=== PATIENT | male | born 1950 | race Caucasian/White ===

== ENCOUNTER 2016-08-08 17:24 | Inpatient (IN) ==
--- NOTE | 2016-08-08 17:46 | Emergency Department Note ---
Disposition Clinical Impression: Community acquired pneumonia, COPD with acute exacerbation, Elevated troponin, NSTEMI (non-ST elevated myocardial infarction) Disposition: Admitted As Inpatient Condition: Fair SOB HPI - General Chief Complaint: ED Shortness of Breath/Dyspnea Stated Complaint: Pneumonia Time Seen by Provider: 08/08/16 17:33 Source: patient Limitations: no limitations Nursing Notes Reviewed: Yes Vital Signs Reviewed: Yes - History of Present Illness Mr. Rahman, a 65yo male, presents from home by POV with CC: difficulty breathing. Present at baseline and worse since this morning. Onset June with cough, diagnosed with bronchitis and treated with IM abx + PO abx + PO steroids...no improvement. Early July routing CT chest (pulmonary cancer screen) and reportedly all clear. Dyspnea continued, cough became productive (yellow), increased inhaler and nebulizer use without improvement. Went to PCP today who read CT report in detail which showed new BL lower lobe consolidation suspicious for pneumonia. He was sent to ER for evaluation and tx. Basline 3L O2 via NC at night. RA during day. PMH: COPD, PVD, diabetes, HTN, BPH, GERD, CAD s/p PCI with stents. Habits: 2-3 packs per day 55 years ([id number] history); quit 2 months ago. - Related Data Home Medications Medication Instructions Recorded Confirmed Albuterol Sulfate [Albuterol 2 puff IH Q4HR PRN 11/13/14 08/08/16 Inhaler] Aspirin 81 mg PO DAILY 11/14/14 08/08/16 Atorvastatin [Lipitor] 40 mg PO HS 11/14/14 08/08/16 Cholecalciferol (Vitamin D3) 1,000 unit PO DAILY 11/14/14 08/08/16 [Vitamin D3] Clopidogrel [Plavix] 75 mg PO DAILY 11/14/14 08/08/16 Tamsulosin [Flomax] 0.4 mg PO DAILY 11/14/14 08/08/16 Ferrous Gluconate 324 mg PO DAILY 12/13/15 08/08/16 Ipratropium [place] 1 spray NS DAILY 12/13/15 08/08/16 Lisinopril [Zestril] 5 mg PO DAILY 12/13/15 08/08/16 Metformin HCl [Metformin HCl ER] 1,000 mg PO QPM 12/13/15 08/08/16 Omeprazole [PriLOSEC] 20 mg PO DAILY 12/13/15 08/08/16 Oxygen [Oxygen] 3 l IH HS 12/13/15 08/08/16 Ranitidine HCl [Heartburn Relief] 150 mg PO BID PRN 12/13/15 08/08/16 Fluticasone Propionate [Flovent 2 puff IH BID 08/08/16 08/08/16 Hfa] Ipratropium/Albuterol Neb [Duoneb] 3 ml IH Q6H PRN 08/08/16 08/08/16 Allergies Allergy/AdvReac Type Severity Reaction Status Date / Time No Known Allergies Allergy Verified 07/08/16 16:02 Past Medical History - Past Medical History Medical history: Reports: COPD, diabetes Surgical history: Reports: angioplasty/stent, sinus surgery, other Psychiatric history: Reports: no psych history - Social History Smoking Status: Former smoker Smokeless Tobacco Status: No Alcohol use: Reports: occasionally Drug use: Reports: none Physical Exam - General Limitations: no limitations General appearance: alert, in no apparent distress Course Course Narrative: Concern is for treated. Cardiac pneumonia which is potentially been progressing for the last 2+ weeks. Chest x-ray indicates emphysema with patchy bibasilar opacities. Lab work has yet to be drawn. Begin empiric antibiotics of ceftriaxone and azithromycin. Patient has been signed out to the night team, Dr. Cottrell and Dr. Raymundo. No leukocytosis. Troponin 1.57. Repeat EKG shows evolving ST depression in precordial leads. Patient is completely asystematic. Patient given aspirin by Dr. Raymundo, spoke with cardiology, and heparin drip started. 19:30 I spoke with the hospitalist, Dr. Hurst, and patient is admitted to her service with cardiology following. Vital Signs Temperature 98.3 F 08/08/16 17:26 Pulse Rate 103 08/08/16 17:26 Respiratory Rate 36 08/08/16 17:26 Blood Pressure 105/69 08/08/16 17:26 O2 Sat by Pulse Oximetry 99 08/08/16 17:26 Temperature 98.3 F 08/08/16 17:26 Pulse Rate 103 08/08/16 17:26 Respiratory Rate 18 08/08/16 18:56 Blood Pressure 105/69 08/08/16 17:26 O2 Sat by Pulse Oximetry 97 08/08/16 18:56 Oxygen Delivery Oxygen Delivery Nasal Cannula Shortness of Breath/Dyspnea - Medical Records Medical records reviewed: Yes I reviewed the patient's medical records. - Lab Data Lab results reviewed: Yes I reviewed the patient's lab results. Result diagrams: 08/08/16 18:36 08/08/16 18:36 Lab Results 08/08/16 08/08/16 08/08/16 Range/Units 18:36 18:36 18:36 WBC 6.9 (4.3-11.1) K/mcL RBC 3.79 L (4.19-5.50) M/mcL Hgb 11.0 L (12.9-16.9) g/dL Hct 33.7 L (37.5-50.1) % MCV 88.9 (83.0-100.0) fL MCH 29.0 (28.0-33.3) pg MCHC 32.6 (31.6-35.5) g/dL RDW 13.2 (11.5-14.5) % Plt Count 350 (140-400) K/mcL MPV 9.4 (9.4-12.4) fL Immature Gran % 0.1 (0-4) % Seg Neutrophils % 57.9 % Lymphocytes % 23.0 % Monocytes % 11.7 % Eosinophils % 6.6 % Basophils % 0.7 % Neutrophils # 4.0 (1.6-8.9) K/mcL Lymphocytes # 1.6 (0.6-4.6) K/mcL Monocytes # 0.8 (0.0-1.3) K/mcL Eosinophils # 0.5 (0.0-0.6) K/mcL Basophils # 0.1 (0.0-0.2) K/mcL Sodium 139 (136-145) mEq/L Potassium 3.9 (3.5-4.5) mEq/L Chloride 106 (98-109) mEq/L Carbon Dioxide 23 (19-29) mEq/L BUN 14 (8-26) mg/dL Creatinine 0.88 (0.72-1.25) mg/dL Est GFR ( Amer) > 60 (> 60) Est GFR (Non-Af Amer) > 60 (> 60) BUN/Creatinine Ratio 16 (6-26) Glucose 101 H (70-99) mg/dL Calculated Osmolality 289 (280-300) Calcium 9.7 (8.6-10.8) mg/dL Troponin I 1.57 H* (0-0.03) ng/mL - Radiology Data Radiology results reviewed: Yes I reviewed the patient's radiology results. Chest X-Ray 08/08/16 17:54 IMPRESSION: 1. Emphysema. 2. Patchy bibasilar airspace opacities, which appear slightly improved compared to the pivot maker radiograph on the previous chest CT dated 07/24/2016. D/ / 08/08/2016 18:24:11 Sravan Hre MD / juan pablo Interpreting Provider: Sravan Her MD - EKG Data EKG attestation: Yes I reviewed and interpreted this EKG. EKG results narrative: EKG data 08/08/16 at 18:41 interpreted as sinus rhythm with rate of 91. Some arrhythmia; suspected respiratory variation. 0.[address] depression with T-wave inversion in lead 2. Compared to previous EKG dated 11/04/2014 showing no acute ischemic changes of comparison. Attestation Statement - Attestation Attestation: I examined this patient and my medical decision-making was reviewed with the SCHOOL PHOTOGRAPHS DETAILER/PA/Advanced Practice Nurse/Resident Physician. I agree with the documented findings, disposition and treatment plan as described except to the extent set forth below. 65 yo male presents with increasing SOB. Pt concerned about pneumonia with previous pneumonia noticed on CT within the past two weeks. Pt reports productive cough but denies fever, chills, n/v/d, palpitations, diaphoresis. Pt reports occasional chest pressure with coughing but denies chest pain in the ED. mild wheezing present in the bilateral vmware architect lung tamez. bilateral infiltrate noted on CXR. Started on Abx for CAP. initial ECG showed [address] depression in V5, V6. Troponin returned elevated and repeat ECG showed increased ST depression and T wave inversion in V4-6. Pt started on Heparin in the ED. Given ASA in the ED. Pt care transferred to Night physician pending further evaluation and treatment.
[2016-08-08] MEDS ORDERED: Ipratropium/Albuterol Neb 3 ML IH ONE (17:54)
[2016-08-08] MEDS ORDERED: methylPREDNISolone 125 MG/2 ML VIAL IVP ONE (17:54)
[2016-08-08 18:51] LABS: Basophils # 0.1 K/mcL (0.0-0.2); Basophils % 0.7 %; Eosinophils # 0.5 K/mcL (0.0-0.6); Eosinophils % 6.6 %; Hematocrit 33.7 % (37.5-50.1); Immature Granulocytes % 0.1 % (0-4); Lymphocytes # 1.6 K/mcL (0.6-4.6); Mean Corpuscular HGB Conc 32.6 g/dL (31.6-35.5); Mean Corpuscular Volume 88.9 fL (83.0-100.0); Mean Platelet Volume 9.4 fL (9.4-12.4); Monocytes # 0.8 K/mcL (0.0-1.3); Monocytes % 11.7 %; Platelet Count 350 K/mcL (140-400); Red Blood Count 3.79 M/mcL (4.19-5.50); Red Cell Distribution Width 13.2 % (11.5-14.5); Segmented Neutrophils % 57.9 %
[2016-08-08] MEDS ORDERED: Azithromycin 500 MG in D5% in Water 250 ML IVPB ONE (19:01)
[2016-08-08 19:07] LABS: BUN/Creatinine Ratio 16 (6-26); Blood Urea Nitrogen 14 mg/dL (8-26); Calcium 9.7 mg/dL (8.6-10.8); Carbon Dioxide 23 mEq/L (19-29); Chloride 106 mEq/L (98-109); Glucose 101 mg/dL (70-99); Osmolality,Calculated 289 (280-300); Potassium 3.9 mEq/L (3.5-4.5); Sodium 139 mEq/L (136-145); eGFR For African Americans > 60 (> 60); eGFR For Non-African Americans > 60 (> 60)
[2016-08-08] MEDS ORDERED: Aspirin 81 MG TAB.CHEW PO ONE (19:18)
[2016-08-08] MEDS ORDERED: *HR* Heparin 5,000 UNIT/ML VIAL IVP ONE (19:37)
[2016-08-08] MEDS ORDERED: *HR* Heparin 5,000 UNIT/ML VIAL IVP PRN ×2 (19:37)
[2016-08-08] MEDS ORDERED: Heparin 25,000 UNIT/500 ML D5W 25,000 UNIT/500 ML MLS IVC SCH (19:45)
[2016-08-08 20:31] LABS: INR 1.2
[2016-08-08 20:34] LABS: Activated Partial Thrombo Time 34.1 Seconds (26.0-36.0)
--- NOTE | 2016-08-08 20:55 | Emergency Department Note ---
Disposition Clinical Impression: Community acquired pneumonia, COPD with acute exacerbation, Elevated troponin Disposition: Still a Patient Condition: Critical General Adult HPI - General Chief complaint: ED Shortness of Breath/Dyspnea Stated complaint: Pneumonia Time Seen by Provider: 08/08/16 17:33 Source: patient Mode of arrival: ambulatory Limitations: no limitations Nursing Notes Reviewed: Yes Vital Signs Reviewed: Yes - History of Present Illness Pain Scale: 6 - Related Data Home Medications Medication Instructions Recorded Confirmed Albuterol Sulfate [Albuterol 2 puff IH Q4HR PRN 11/13/14 08/08/16 Inhaler] Aspirin 81 mg PO DAILY 11/14/14 08/08/16 Atorvastatin [Lipitor] 40 mg PO HS 11/14/14 08/08/16 Cholecalciferol (Vitamin D3) 1,000 unit PO DAILY 11/14/14 08/08/16 [Vitamin D3] Clopidogrel [Plavix] 75 mg PO DAILY 11/14/14 08/08/16 Tamsulosin [Flomax] 0.4 mg PO DAILY 11/14/14 08/08/16 Ferrous Gluconate 324 mg PO DAILY 12/13/15 08/08/16 Ipratropium [place] 1 spray NS DAILY 12/13/15 08/08/16 Lisinopril [Zestril] 5 mg PO DAILY 12/13/15 08/08/16 Metformin HCl [Metformin HCl ER] 1,000 mg PO QPM 12/13/15 08/08/16 Omeprazole [PriLOSEC] 20 mg PO DAILY 12/13/15 08/08/16 Oxygen [Oxygen] 3 l IH HS 12/13/15 08/08/16 Ranitidine HCl [Heartburn Relief] 150 mg PO BID PRN 12/13/15 08/08/16 Fluticasone Propionate [Flovent 2 puff IH BID 08/08/16 08/08/16 Hfa] Ipratropium/Albuterol Neb [Duoneb] 3 ml IH Q6H PRN 08/08/16 08/08/16 Allergies Allergy/AdvReac Type Severity Reaction Status Date / Time No Known Allergies Allergy Verified 07/08/16 16:02 Past Medical History - Past Medical History Medical history: Reports: COPD, diabetes Surgical history: Reports: angioplasty/stent, sinus surgery, other Psychiatric history: Reports: no psych history - Social History Smoking Status: Former smoker Smokeless Tobacco Status: No Alcohol use: Reports: occasionally Drug use: Reports: none Physical Exam - General Limitations: no limitations General appearance: alert, in no apparent distress Course - Reevaluation(s) Reevaluation #1: The patient signout from Dr. Farnsworth. Was notified on my arrival of elevated troponin to 1.57. EKG was repeated and showed ST depression in V3, V4, and V5. With narrow complex tachycardia at 108. No ST elevation. Posterior VT did not show any posterior changes. This was normal sinus rhythm at 94. Case is cussed with baseball coach on-call doctor [place]. Patient adamantly denies any chest pain, pressure, or even shortness of breath at this time. He does note that he has had exertional chest pressure and dyspnea throughout the day and yesterday. He received an aspirin and was placed on a heparin drip. If he develops any chest pain he will get another EKG to be evaluated for ST elevation VT. Patient accepted by the hospitalist. Time: 20:55 Vital Signs Temperature 98.3 F 08/08/16 17:26 Pulse Rate 103 08/08/16 17:26 Respiratory Rate 36 08/08/16 17:26 Blood Pressure 105/69 08/08/16 17:26 O2 Sat by Pulse Oximetry 99 08/08/16 17:26 Temperature 98.3 F 08/08/16 17:26 Pulse Rate 103 08/08/16 17:26 Respiratory Rate 18 08/08/16 18:56 Blood Pressure 105/69 08/08/16 17:26 O2 Sat by Pulse Oximetry 97 08/08/16 18:56 Oxygen Delivery Oxygen Delivery Nasal Cannula Medical Decision Making - Lab Data Result diagrams: 08/08/16 18:36 08/08/16 18:36 Lab Results 08/08/16 08/08/16 08/08/16 Range/Units 18:36 18:36 18:36 WBC 6.9 (4.3-11.1) K/mcL RBC 3.79 L (4.19-5.50) M/mcL Hgb 11.0 L (12.9-16.9) g/dL Hct 33.7 L (37.5-50.1) % MCV 88.9 (83.0-100.0) fL MCH 29.0 (28.0-33.3) pg MCHC 32.6 (31.6-35.5) g/dL RDW 13.2 (11.5-14.5) % Plt Count 350 (140-400) K/mcL MPV 9.4 (9.4-12.4) fL Immature Gran % 0.1 (0-4) % Seg Neutrophils % 57.9 % Lymphocytes % 23.0 % Monocytes % 11.7 % Eosinophils % 6.6 % Basophils % 0.7 % Neutrophils # 4.0 (1.6-8.9) K/mcL Lymphocytes # 1.6 (0.6-4.6) K/mcL Monocytes # 0.8 (0.0-1.3) K/mcL Eosinophils # 0.5 (0.0-0.6) K/mcL Basophils # 0.1 (0.0-0.2) K/mcL Sodium 139 (136-145) mEq/L Potassium 3.9 (3.5-4.5) mEq/L Chloride 106 (98-109) mEq/L Carbon Dioxide 23 (19-29) mEq/L BUN 14 (8-26) mg/dL Creatinine 0.88 (0.72-1.25) mg/dL Est GFR ( Amer) > 60 (> 60) Est GFR (Non-Af Amer) > 60 (> 60) BUN/Creatinine Ratio 16 (6-26) Glucose 101 H (70-99) mg/dL Calculated Osmolality 289 (280-300) Calcium 9.7 (8.6-10.8) mg/dL Troponin I 1.57 H* (0-0.03) ng/mL
[2016-08-08] MEDS ORDERED: Naloxone 0.4 MG/ML INJ IVP PRN (23:16)
[2016-08-08] MEDS ORDERED: Acetaminophen 325 MG TABLET PO PRN (23:16)
[2016-08-08] MEDS ORDERED: Ipratropium/Albuterol Neb 3 ML IH PRN (23:18)
[2016-08-08] MEDS ORDERED: Dextrose Gel 15 GM PO PRN ×2 (23:19)
[2016-08-08] MEDS ORDERED: *HR* Dextrose 50 % in Water (Syg) 50 ML SYRINGE IVP PRN (23:19)
[2016-08-08] MEDS ORDERED: D5% in Water 1,000 ML IVC PRN (23:19)
[2016-08-09] MEDS: Insulin LISPRO 300 UNITS/3 ML VIAL SQ SCH ×4 (00:21→20:54)
--- NOTE | 2016-08-09 01:22 | Internal Med History&Physical ---
Date of Encounter: 08/09/16 Time of Encounter: 21:30 Assessment and Plan (1) NSTEMI (non-ST elevated myocardial infarction) Current visit: Yes Status: Acute Patient presented with chest pain and exertional dyspnea. Noted to have elevated troponin, first one at 1.57, along with EKG changes. Case discussed with cardiology by emergency room physician, recommend anticoagulation with IV heparin drip. Full consult to follow. Continue telemetry monitoring, serial EKGs and troponins. Continue aspirin, Plavix, statin. Check 2-D echocardiogram. Patient will likely receive cardiac catheterization in a.m. Keep NPO for now; high risk for complications; (2) Dyspnea Current visit: Yes Status: Chronic Could be an anginal equivalent. Does not appear to be in acute COPD, patient also quit smoking about 2 months back. Continue telemetry monitoring, cycle troponins. Follow-up cardiology consult. Qualifiers: Dyspnea type: dyspnea on exertion Qualified Code(s): R06.09 - Other forms of dyspnea (3) Essential hypertension Current visit: Yes Status: Chronic Blood pressure noted to be well controlled. Resume home medications. (4) COPD (chronic obstructive pulmonary disease) Current visit: Yes Status: Chronic Continue when necessary bronchodilators and supplemental oxygen, inhaled corticosteroids. Qualifiers: COPD type: unspecified COPD Qualified Code(s): J44.9 - Chronic obstructive pulmonary disease, unspecified (5) CAD (coronary artery disease) Current visit: Yes Status: Chronic Status post 2 stents. Continue aspirin, Plavix and statin. Qualifiers: Coronary Disease-Associated Artery/Lesion type: habematolel artery [place] vs. transplanted heart: habematolel heart Associated angina: without angina Qualified Code(s): I25.10 - Atherosclerotic heart disease of habematolel coronary artery without angina pectoris (6) DM2 (diabetes mellitus, type 2) Current visit: Yes Status: Chronic Accu-Chek blood glucose monitoring with sliding scale insulin as needed. Check hemoglobin A1c. Qualifiers: Diabetes mellitus complication status: with unspecified complications Diabetes mellitus moth exterminator insulin use: without senior care use Qualified Code( s): E11.8 - Type 2 diabetes mellitus with unspecified complications (7) BPH (benign prostatic hyperplasia) Current visit: Yes Status: Chronic Qualifiers: Prostatic enlargement morphology: unspecified morphology Lower urinary tract symptom presence: presence of symptoms unspecified Qualified Code(s): N40.0 - Benign prostatic hyperplasia without lower urinary tract symptoms Internal Medicine - H&P: HPI Chief complaint: Shortness of breath Admitted From: Emergency Dept Plans for Post Hospital Care: Home History of present illness: Mr. Rahman is a 65 year old male with history of COPD, hypertension and diabetes , presents with 2 month history of progressively worsening shortness of breath. Patient is a chronic active smoker and does have some mild shortness of breath and smoker's cough at baseline. He reports worsening of dyspnea, both at rest and on minimal exertion that has been getting worse for at least 2 months. This is associated with crampy left-sided chest pain, worse in certain positions and on exertion. No orthopnea, leg swelling, change in color and amount of sputum production, fever or chills. Patient has history of coronary stent placement about 10 years back. His last stress test and heart catheterization were 5 years ago, at which time they were normal according to the patient. Past Med Surg Social Fam HX - Past Medical History Medical history: COPD, coronary artery disease, diabetes, hyperlipidemia, hypertension Psychiatric history: no psych history - Past Surgical History Surgical History: angioplasty/stent, sinus surgery, other - Social History Smoking Status: Former smoker (Has been smoking at least 2 packs per day for about 55 years, quit 2 months ago) Smokeless Tobacco Status: No Alcohol use: heavy (5-7 beers/week) Drug use: none Occupational status: retired Current living situation: Home, With Family Activity Level: Independent ambulation Recent Out of Country Travel Within the Last 8 Weeks: No Exposure or Possible Exposure to Illness During Travel: No - Family History Mother Hx Family Endocrine Disorder: Yes (diabeties) Internal Medicine - H&P: Meds Albuterol Sulfate [Albuterol Inhaler] 2 puff IH Q4HR PRN 11/13/14 [History] Aspirin 81 mg PO DAILY 11/14/14 [History] Atorvastatin [Lipitor] 40 mg PO HS 11/14/14 [History] Cholecalciferol (Vitamin D3) [Vitamin D3] 1,000 unit PO DAILY 11/14/14 [History] Clopidogrel [Plavix] 75 mg PO DAILY 11/14/14 [History] Tamsulosin [Flomax] 0.4 mg PO DAILY 11/14/14 [History] Ferrous Gluconate 324 mg PO DAILY 12/13/15 [History] Ipratropium [place] 1 spray NS DAILY 12/13/15 [History] Lisinopril [Zestril] 5 mg PO DAILY 12/13/15 [History] Metformin HCl [Metformin HCl ER] 1,000 mg PO QPM 12/13/15 [History] Omeprazole [PriLOSEC] 20 mg PO DAILY 12/13/15 [History] Oxygen [Oxygen] 3 l IH HS 12/13/15 [History] Ranitidine HCl [Heartburn Relief] 150 mg PO BID PRN 12/13/15 [History] Fluticasone Propionate [Flovent Hfa] 2 puff IH BID 08/08/16 [History] Ipratropium/Albuterol Neb [Duoneb] 3 ml IH Q6H PRN 08/08/16 [History] Allergies No Known Allergies Allergy (Verified 07/08/16 16:02) All Systems PM: A 10-system review of systems was performed and is negative for pertinent findings except as documented above in the HPI. - Constitutional Constitutional: no chills, no fever(s), no night sweats - EENT Eyes: no change in vision, no discharge, no pain, no photophobia Ears: no ear discharge, no ear pain, no tinnitus Nose, mouth and throat: no dysphagia, no nasal discharge, no neck pain, no sore throat - Cardiovascular Cardiovascular ROS IM: chest pain, dyspnea, dyspnea on exertion - Respiratory Respiratory: cough, dyspnea on exertion - Gastrointestinal Gastrointestinal: no abdominal pain, no diarrhea, no hematemesis, no hematochezia, no melena, no nausea, no vomiting - Musculoskeletal Musculoskeletal ROS IM: no numbness, no tingling - Integumentary Integumentary IM: no rash, no unusual bruising - Neurological Neurological ROS: no confusion, no convulsions, no focal weakness, no numbness, no tingling, no tremor(s) - Hematologic/Lymphatic Hematologic/Lymphatic: no easy bruising - Constitutional Vitals: Temp Pulse Resp BP Pulse Ox 98.0 F 107 22 103/68 96 08/08/16 22:24 08/08/16 22:24 08/08/16 22:24 08/08/16 22:24 08/08/16 22:24 General appearance: Present: mild distress, A&O X 3, answers questions appropriately - Respiratory Respiratory exam: Present: CTAB (coarse breath sounds B/L). Absent: accessory muscle use, rales, rhonchi, wheezes - Cardiovascular Cardiovascular exam: Present: RRR, +S1, +S2. Absent: diastolic murmur, gallop, rubs, systolic murmur - GI/Abdominal GI/Abdominal exam: Present: normal bowel sounds, soft, no peritoneal signs. Absent: distended, tenderness - Extremities Exam Extremities exam: Present: full ROM, warm, radial pulses palpable and symetrical. Absent: calf tenderness, cyanotic, pedal edema - Neurological Exam Neurological exam: Present: CN II-XII intact, oriented X3, no focal deficits. Absent: pronater drift, facial droop, speech deficit - Skin Skin exam: Present: dry, intact Internal Med - H&P Results - Labs CBC & Chem 7: 08/08/16 18:36 08/08/16 18:36 - EKG Data -: EKG Interpreted by Myself EKG shows normal: sinus rhythm - EKG Data When compared to previous EKG: there are significant changes Interpretation IM: suggestive of ischemia (ST depression in anterior and lateral leads)
[2016-08-09 05:25] LABS: Eosinophils % 0.3 %; Hematocrit 32.4 % (37.5-50.1); Hemoglobin 10.5 g/dL (12.9-16.9); Immature Granulocytes % 0.3 % (0-4); Lymphocytes # 0.4 K/mcL (0.6-4.6); Lymphocytes % 10.1 %; Mean Corpuscular HGB Conc 32.4 g/dL (31.6-35.5); Mean Corpuscular Hemoglobin 29.2 pg (28.0-33.3); Mean Corpuscular Volume 90.3 fL (83.0-100.0); Monocytes # 0.1 K/mcL (0.0-1.3); Monocytes % 1.3 %; Neutrophils # 3.5 K/mcL (1.6-8.9); Platelet Count 311 K/mcL (140-400); Red Blood Count 3.59 M/mcL (4.19-5.50); Red Cell Distribution Width 13.2 % (11.5-14.5)
[2016-08-09 05:32] LABS: BUN/Creatinine Ratio 16 (6-26); Blood Urea Nitrogen 15 mg/dL (8-26); Carbon Dioxide 23 mEq/L (19-29); Chloride 103 mEq/L (98-109); Chol/HDL Ratio 2.4 (0-4.9); Cholesterol 111 mg/dL (< 200); Glucose 208 mg/dL (70-99); HDL Cholesterol 47 mg/dL (40-59); LDL Cholesterol,Calculated 53 mg/dL (0-99); Magnesium 1.7 mg/dL (1.6-2.6); Osmolality,Calculated 287 (280-300); Potassium 4.4 mEq/L (3.5-4.5); Sodium 135 mEq/L (136-145); Triglycerides 54 mg/dL (< 150); eGFR For African Americans > 60 (> 60); eGFR For Non-African Americans > 60 (> 60)
[2016-08-09] MEDS: Cholecalciferol (D-3) 1,000 UNIT TABLET PO SCH (09:21)
[2016-08-09] MEDS: Aspirin 81 MG TAB.CHEW PO SCH (09:22)
--- NOTE | 2016-08-09 09:47 | Cardiology Consult Note ---
Date of Encounter: 08/09/16 Time of Encounter: 08:00 Assessment and Plan (1) NSTEMI (non-ST elevated myocardial infarction) Current Visit: Yes Status: Acute Peak troponin 1.57 with downward trend. ECG changes noted, ischemic vs. LVH. Reports chest pressure and tightness when has difficulty breathing--pain free upon exam now. Hx of occlusive CAD s/p PCI in 2005 or 2006. Recommend ischemic evaluation, LHC with possible PCI; ideally when respiratory status improves. Continue heparin gtt, asa, plavix, and statin. No betablocker due to COPD exacerbation. Check echocardiogram. Keep NPO for now, will discuss with Dr. Becerril. (2) COPD with acute exacerbation Current Visit: Yes Status: Acute Defer mgmt per Primary service. (3) PVD (peripheral vascular disease) Current Visit: Yes Status: Acute Hx of PAD, reports was told he needs LLE intervention in the past. Continue asa, statin, plavix. Discussion w patient/family: The assessment and plan as outlined above was discussed with the patient and/or family members who expressed understanding and agreement. All questions were answered. Thank you for involving us in the care of your patient. Please call with any questions. The patient will be discussed and reviewed with Dr. Becerril; changes to be made accordingly. History of Present Illness Consult date: 08/09/16 Requesting physician: Selma Thomas Consult reason: Elevated trop Chief complaint: Shortness of breath History of present illness: Mr. Rahman is a 65 year old male with PMH significant for HTN, HLD, DMII, CAD s/ p remote PCI (2005 or 2006), COPD (home o2), and PAD who presented to the ED with a 2-month history of worsening shortness of breath. Reportedly he followed up with his PCP several weeks ago who ordered CXR which demonstrated "pneumonia " and patient was unaware of findings. Dyspnea worsened with exertion and improves with rest, nebulizers, and prn oxygen. Initial troponin upon presentation 1.57 now with downward trend. ECG changes noted compared to previous, ischemic changes vs. LVH. Prior testing: TTE 10/05/13: EF 60-65%, mild AR/, normal wall motion, mild LVDD Past Med Surg Social Fam HX - Past Medical History Attestation: Yes The following information was validated with the patient. Source: patient, old records reviewed Medical history: COPD, coronary artery disease, diabetes, hyperlipidemia, hypertension, peripheral artery disease Psychiatric history: no psych history - Past Surgical History Surgical History: angioplasty/stent, sinus surgery - Social History Smoking Status: Former smoker (Has been smoking at least 2 packs per day for about 55 years, quit 2 months ago) Smokeless Tobacco Status: No Alcohol use: heavy (5-7 beers/week) Drug use: none - Family History Mother Hx Family Endocrine Disorder: Yes (diabeties) Medications and Allergies Albuterol Sulfate [Albuterol Inhaler] 2 puff IH Q4HR PRN 11/13/14 [History] Aspirin 81 mg PO DAILY 11/14/14 [History] Atorvastatin [Lipitor] 40 mg PO HS 11/14/14 [History] Cholecalciferol (Vitamin D3) [Vitamin D3] 1,000 unit PO DAILY 11/14/14 [History] Clopidogrel [Plavix] 75 mg PO DAILY 11/14/14 [History] Tamsulosin [Flomax] 0.4 mg PO DAILY 11/14/14 [History] Ferrous Gluconate 324 mg PO DAILY 12/13/15 [History] Ipratropium [place] 1 spray NS DAILY 12/13/15 [History] Lisinopril [Zestril] 5 mg PO DAILY 12/13/15 [History] Metformin HCl [Metformin HCl ER] 1,000 mg PO QPM 12/13/15 [History] Omeprazole [PriLOSEC] 20 mg PO DAILY 12/13/15 [History] Oxygen [Oxygen] 3 l IH HS 12/13/15 [History] Ranitidine HCl [Heartburn Relief] 150 mg PO BID PRN 12/13/15 [History] Fluticasone Propionate [Flovent Hfa] 2 puff IH BID 08/08/16 [History] Ipratropium/Albuterol Neb [Duoneb] 3 ml IH Q6H PRN 08/08/16 [History] Allergies No Known Allergies Allergy (Verified 07/08/16 16:02) All Systems Review: A 10-system review of systems was performed and is negative for pertinent findings except as documented above in the HPI. - Cardiovascular Cardiovascular: as per HPI Physical Examination Vital Signs, Last 4 Hours Temp Pulse Resp BP Pulse Ox 08/09/16 09:35 20 96 08/09/16 07:21 97.7 F 91 20 102/62 96 General: Conversant, No Apparent Distress HEENT: Atraumatic, Normocephaly, Mucus Membranes Moist Cardiac: Reg Rate and Rhythm (tachycardiac) Lungs: Other (Diminished bibasilar rales) Neuro: Alert and responsive Abdomen: Soft Skin: No rashes noted on visualized skin Musculoskeletal: No Chest Wall Tenderness Extremities: No Edema, Other (+1 DP/PT pulses) Results 08/09/16 04:57 08/09/16 04:57 Lab Results 08/09/16 08/09/16 08/09/16 00:48 04:57 04:57 WBC 4.0 L Hgb 10.5 L Hct 32.4 L Plt Count 311 APTT Sodium 135 L Potassium 4.4 Chloride 103 Carbon Dioxide 23 BUN 15 Creatinine 0.92 Glucose 208 H Calcium 9.0 Magnesium 1.7 Troponin I 0.78 H* 08/09/16 08/09/16 04:57 04:57 WBC Hgb Hct Plt Count APTT 48.2 H Sodium Potassium Chloride Carbon Dioxide BUN Creatinine Glucose Calcium Magnesium Troponin I 0.60 H* Active Medications Acetaminophen (Tylenol) 650 mg PO Q6HR PRN PRN Reason: Mild Pain (1-3) Stop: 02/07/17 23:17 Albuterol/Ipratropium (Duoneb) 3 ml IH Q6H PRN; Protocol PRN Reason: Shortness Of Breath/Wheezing Stop: 02/07/17 23:19 Last Admin: 08/09/16 09:34 Dose: 3 ml Aspirin (Aspirin) 81 mg PO DAILY [facility] Stop: 02/08/17 09:01 Last Admin: 08/09/16 09:22 Dose: 81 mg Atorvastatin Calcium (Lipitor) 40 mg PO HS [facility] Stop: 02/08/17 21:01 Clopidogrel Bisulfate (Plavix) 75 mg PO DAILY [facility] Stop: 02/08/17 09:01 Last Admin: 08/09/16 09:21 Dose: 75 mg Dextrose/Water (Dextrose 50% (Syg)) 25 ml IVP AD PRN PRN Reason: Hypoglycemia Stop: 02/07/17 23:20 Ferrous Sulfate (Ferrous Sulfate) 325 mg PO DAILY [facility] Stop: 02/08/17 09:01 Last Admin: 08/09/16 09:22 Dose: 325 mg Glucagon (Glucagen) 1 mg IM ONCE PRN PRN Reason: Hypoglycemia Stop: 02/07/17 23:20 Glucose (Gluctose) 15 gm PO ONCE PRN PRN Reason: Hypoglycemia Stop: 02/07/17 23:20 Glucose (Gluctose) 30 gm PO ONCE PRN PRN Reason: Hypoglycemia Stop: 02/07/17 23:20 Heparin Sodium (Porcine) (Heparin) 4,000 unit IVP Q6HR PRN PRN Reason: SEE COMMENTS Stop: 02/07/17 19:38 Heparin Sodium (Porcine) (Heparin) 2,000 unit IVP Q6H PRN PRN Reason: SEE COMMENTS Stop: 02/07/17 19:38 Last Admin: 08/09/16 05:45 Dose: 2,000 unit Heparin Sodium/Dextrose (Heparin 25,000 Unit/500 Ml D5w) 25,000 unit in 500 mls @ 16.547 mls/hr IVC .Q24H [facility]; 12 UNIT/KG/HR PRN Reason: Protocol Stop: 02/07/17 19:46 Last Titration: 08/09/16 05:34 Dose: 14 unit/kg/hr, 19.305 mls/hr Dextrose (Dextrose 5%) 1,000 mls @ 100 mls/hr IVC .Q10H PRN PRN Reason: HYPOGLYCEMIA Stop: 02/07/17 23:20 Insulin Human Lispro (Humalog) 0 units SQ Q6HR [facility] PRN Reason: Protocol Stop: 02/08/17 00:01 Last Admin: 08/09/16 05:49 Dose: Not Given Lisinopril (Zestril) 5 mg PO DAILY [facility] PRN Reason: Protocol Stop: 02/08/17 09:01 Last Admin: 08/09/16 09:21 Dose: 5 mg Naloxone HCl (Narcan) 0.4 mg IVP Q2MIN PRN PRN Reason: Opioid Reversal Stop: 02/07/17 23:17 Omeprazole (Prilosec) 20 mg PO DAILY@0630 [facility] PRN Reason: Protocol Stop: 02/08/17 06:31 Last Admin: 08/09/16 05:50 Dose: Not Given Pharmacy Profile Note (Patient Taking Own Medication) 0 each IH BID [facility] Stop: 02/08/17 09:01 Tamsulosin HCl (Flomax) 0.4 mg PO DAILY [facility] PRN Reason: Protocol Stop: 02/08/17 09:01 Last Admin: 08/09/16 09:22 Dose: 0.4 mg Vitamin D (Vitamin D) 1,000 unit PO DAILY [facility] Stop: 02/08/17 09:01 Last Admin: 08/09/16 09:21 Dose: 1,000 unit - Imaging and Cardiology Echo: pending, report reviewed Other Results: 12 hour tele: avg [id number] ST. - EKG Interpretation EKG results cardiology: personally reviewed Consult Discharge Plan - Plan Referrals: Saul Grayson MD [Primary Care Provider] - 08/18/16 2:00 pm
[2016-08-09] MEDS: (Fluticasone Propionate [Flovent Hfa] 2 PUFF) IH SCH ×2 (10:25→20:59)
[2016-08-09] MEDS ORDERED: Ipratropium/Albuterol Neb 3 ML IH PRN (11:38)
[2016-08-09] MEDS ORDERED: Ipratropium/Albuterol Neb 3 ML IH SCH (11:45)
[2016-08-09] MEDS ORDERED: Nitroglycerin 1,000 MCG/10 ML VIAL IV ONE (12:32)
[2016-08-09] MEDS ORDERED: 0.9 % Sodium Chloride 1,000 ML ONE ×2 (12:32→13:15)
[2016-08-09] MEDS ORDERED: Heparin 1,000 UNITS/500 mL NS 500 ML ONE (12:32)
[2016-08-09] MEDS ORDERED: *HR* Heparin 10,000 UNIT/10 ML VIAL ONE (12:32)
[2016-08-09] MEDS ORDERED: Verapamil 5 MG/2 ML VIAL ONE (12:32)
[2016-08-09] MEDS ORDERED: *HR* FentaNYL (PF) 100 MCG/2 ML VIAL ONE (13:07)
[2016-08-09] MEDS ORDERED: *HR* Midazolam HCl 2 MG/2 ML VIAL ONE (13:07)
--- NOTE | 2016-08-09 13:33 | Pre-Sedation Evaluation ---
Pre-sedation evaluation - Pre-sedation checklist Date of procedure: 08/09/16 Procedure: heart cath Recent Vitals: Last Vital Signs Temp 97.7 F 08/09/16 07:21 Pulse 91 08/09/16 07:21 Resp 20 08/09/16 12:45 BP 102/62 08/09/16 07:21 Pulse Ox 96 08/09/16 12:45 H&P (including ROS) documented in medical record: Yes Previous reaction to sedatives/anesthetics: No Dietary Status: NPO after Midnight Dentition: dentures removed ASA Classification *see protocol: CLASS II-Mild systemic disease Plan of Care: Pt appropriate candidate for procedure/moderate/conscious sedation , Risks/benefits of procedure/sedation discussed w/ patient/family
--- NOTE | 2016-08-09 14:16 | ECHO - Doppler Report ---
Echocardiogram Name: Sravan Rahman Date of Study: 08/09/2016 Date: 1950 Ht: 71.0 in Medical Record#: [id number] Age: 65 Wt: 153.0 lb Gender: Male BSA: 1.88 Order #: [id number] Location: [facility] Room #: 2NE21 Reading Physician: Jb Moore MD, [facility] [employer] Contact Lens: Marlon Muniz Ordering Physician: Theodora Thomas MD Primary Physician: None Indications: Exertional dyspnea, Elevated troponin Impressions: Moderate-severely dilated left ventricle. Severe LV systolic dysfunction, LVEF 25%. There is global LV hypokinesis with regional variations. Normal right ventricular size and function. Aortic valve not well visualized. Appears moderately calcified. Moderate aortic stenosis. Moderate mitral regurgitation. No evidence of pulmonary hypertension. Left Ventricular Wall Motion: Rest Echo Findings The apex, apical inferior, mid inferior, basal inferior, apical anterior, mid anterior, basal anterior, apical septal, mid inferior septal, basal inferior septal, apical lateral, mid anterior lateral, basal anterior lateral, mid anterior septal, mid inferior lateral, basal anterior septal and basal inferior lateral gonzalez were hypokinetic. Findings: Study Quality * Suboptimal echo windows. ECG Findings * Sinus rhythm with occasional PVCs. Left Ventricle * Moderate-severely dilated left ventricle. * Severe LV systolic dysfunction, LVEF 25%. There is global LV hypokinesis with regional variations. * Normal LV wall thickness. * Indeterminate diastolic function. Right Ventricle * Normal right ventricular size and function. Left Atrium * Normal left atrial size. Right Atrium * Normal right atrial size. Aorta * Aortic root was not well visualized. Pericardium * There is a trivial pericardial effusion present. IVC * Normal IVC dimensions and inspiratory collapse. Aortic Valve * Aortic valve not well visualized. Appears moderately calcified. * Moderate aortic stenosis. * Trace aortic regurgitation. Mitral Valve * Mild mitral annular calcification * No mitral stenosis. * Moderate mitral regurgitation. Tricuspid Valve * Normal tricuspid valve structure. * No tricuspid stenosis. * Trace tricuspid regurgitation. * No evidence of pulmonary hypertension. Pulmonic Valve * Pulmonic valve not well visualized. * No pulmonic stenosis. * No pulmonic regurgitation. History Hypertension Diabetes Hypercholesteremia History of CAD/PTCA Myocardial Infarction Coronary Artery Bypass Graft Valvular Disease 10/05/2013 a Previous Echo was performed. Measurements: BP: 102/ 62 2D Normal Values RVIDd: 2.30 cm IVSd: .60 cm 0.6 - 1.0 cm LVIDd: 6.70 cm 3.7 - 5.6 cm LVPWd: .80 cm 0.6 - 1.1 cm LVIDs: 6.00 cm 1.5 - 3.6 cm LA: 3.60 cm 2.0 - 4.0cm %FS: 10.40 cm >25 % LVOT Diam: 2.00 cm LA volume: 50 Aortic Valve Peak Omar:3.05 m/sec Mean Omar:2.00 m/sec Peak Grad:37.00 mmHg Mean Grad:19.00 mmHg Valve Area:1.15 cm2 Tricuspid Valve TV Regurg Peak Grad: 14.00mmHg TV Regurg Peak Omar: 1.89m/sec Updated by Jb Moore MD, [facility] on 08/09/2016 2:11:21 PM electronically signed on 08/09/2016 2:11:54 PM with status of Final Wall Motion Nam: 1=Normal, 2=Hypokinesis, 3=Akinesis, 4=Dyskinesis, 5=Aneurysmal, 6=Hyperkinetic, X=Not Visualized (Blank)=Missing
--- NOTE | 2016-08-09 15:03 | Internal Med Progress Note ---
<Abdirizak Holland - Last Filed: 08/09/16 14:55> Date of Encounter: 08/09/16 Time of Encounter: 15:03 - Assessment and plan (1) NSTEMI (non-ST elevated myocardial infarction) Current Visit: Yes Status: Acute Assessment and plan: 65y/o male s/p PCI 2012 presents with sob. EKG showed ST depression in V5-V6. Troponin 0.06, 0.78, 1.57 respectively Started on heparin drip, home aspirin, plavix, statin, lisinopril, bblocker held due to sob and COPD. Patient had echo today showing LVEF of 25% with global hypokinesis and moderate aortic stenosis and mitral regurgitation and was taken directly for Cardiac Catheterizaiton (previous echo: LVEF 60-65% with mild arotic stenosis) Denied CP this morning. (2) COPD exacerbation Current Visit: Yes Status: Acute Assessment and plan: r/o patient states he has sob for two months but it has not progressively worsened. He denies productive sputum but did have productive sputum in the past when he was treated for chornic broncitis. sob likely 2nd to cardiac etiology in setting of COPD. Continue duonebs. Furthermore, he does not have clinical signs of penumonia: afebrile, lung exam clear: absent rales, ronchi, absent productive cough. Does report sob. CXR shows improved bibasilar opacities from previous CT chest on July 24 therefore will not start antibiotics or prednisone (3) Tobacco abuse Current Visit: Yes Status: Acute Assessment and plan: Patient has 165 pack year hx Quit smoking 2 months ago. (4) DVT prophylaxis Current Visit: Yes Status: Acute Assessment and plan: on heparin drip (5) Essential hypertension Current Visit: Yes Status: Chronic Assessment and plan: Stable: continue lisinopril. - Subjective Interval history: 65 y/o male admitted for NSTEMI. Patient states he has been SOB for the past two months. SOB is not progressively worsening. He was dx with bronchitis in June and treated with antibiotics and steroids. However, his symptoms did not improve. He aso had CT Chest on July 24 which showed b/l lower lobe opacities considered to be pneumonia. Patient's shortness of breath did not improve with bronchodilators, nebulizer treatments. He uses 3 L of oxygen at night. Patient has a history of coronary artery disease with his last cardiac catheter in 2012 showed moderate three-vessel disease. Patient had echocardiogram in 2014 showing EF of 60-65% with mild stenosis. Patient was found to have ST segment depressions in the precordial leads V5 and V6. He had elevated troponin. Currently patient is on 2 L oxygen saturating 96%. He denies any chest pain. With complaints of shortness of breath. Reports chest pressure with inspiration. Denies productive cough. Patient denies nausea, vomiting, diaphoresis. - Constitutional Vitals: Temp Pulse Resp BP Pulse Ox 97.7 F 91 20 102/62 96 08/09/16 07:21 08/09/16 07:21 08/09/16 12:45 08/09/16 07:21 08/09/16 12:45 General appearance: Present: mild distress, A&O X 3, answers questions appropriately - Eye Eye exam: Present: PERRL, conjuntiva pink, sclera anicteric Pupils: Present: PERRL - Neck Neck exam general surgery: Present: supple, trachea midline. Absent: lymphadenopathy - Respiratory Respiratory exam: Present: CTAB (s/p beathing treatment ) - Cardiovascular Cardiovascular exam: Present: +S1, +S2, tachycardia - GI/Abdominal GI/Abdominal exam: Present: normal bowel sounds, soft, no peritoneal signs. Absent: distended, tenderness - Extremities Exam Extremities exam: Present: warm, radial pulses palpable and symetrical. Absent : calf tenderness, cyanotic, pedal edema - Neurological Exam Neurological exam: Present: CN II-XII intact, oriented X3, no focal deficits. Absent: pronater drift, facial droop, speech deficit - Skin Skin exam: Present: dry, intact Internal Medicine: Result - Labs CBC & Chem 7: 08/09/16 04:57 08/09/16 04:57 Labs: Short CBC 08/09/16 Range/Units 04:57 WBC 4.0 L (4.3-11.1) K/mcL Hgb 10.5 L (12.9-16.9) g/dL Hct 32.4 L (37.5-50.1) % Plt Count 311 (140-400) K/mcL Neutrophils # 3.5 (1.6-8.9) K/mcL BMP 08/09/16 04:57 Sodium 135 L Potassium 4.4 Chloride 103 Carbon Dioxide 23 BUN 15 Creatinine 0.92 Glucose 208 H Calcium 9.0 Cardiac Enzymes 08/09/16 08/09/16 Range/Units 00:48 04:57 Troponin I 0.78 H* 0.60 H* (0-0.03) ng/mL - ABG Interpretation ABG results: PT/INR, D-dimer PT 13.0 Seconds (9.4-12.1) H 08/08/16 20:17 Consult Discharge Plan - Plan Referrals: Saul Grayson MD [Primary Care Provider] - 08/18/16 2:00 pm <Cristopher Hernandez - Last Filed: 08/09/16 18:22> Date of Encounter: 08/09/16 - Assessment and plan (1) NSTEMI (non-ST elevated myocardial infarction) Current Visit: Yes Status: Acute (2) CAD (coronary artery disease) Current Visit: Yes Status: Chronic Qualifiers: Coronary Disease-Associated Artery/Lesion type: [place] artery [place] vs. transplanted heart: [place] heart Associated angina: without angina Qualified Code(s): I25.10 - Atherosclerotic heart disease of [place] coronary artery without angina pectoris (3) DM2 (diabetes mellitus, type 2) Current Visit: Yes Status: Chronic Qualifiers: Diabetes mellitus complication status: with unspecified complications Diabetes mellitus senior care insulin use: without senior care use Qualified Code( s): E11.8 - Type 2 diabetes mellitus with unspecified complications (4) Essential hypertension Current Visit: Yes Status: Chronic (5) COPD (chronic obstructive pulmonary disease) Current Visit: Yes Status: Chronic Qualifiers: COPD type: unspecified COPD Qualified Code(s): J44.9 - Chronic obstructive pulmonary disease, unspecified - Constitutional Vitals: Temp Pulse Resp BP Pulse Ox 97.9 F 97 18 81/56 100 08/09/16 16:37 08/09/16 17:30 08/09/16 16:37 08/09/16 17:35 08/09/16 16:37 Internal Medicine: Result - Labs CBC & Chem 7: 08/09/16 04:57 08/09/16 04:57 Labs: Short CBC 08/09/16 Range/Units 04:57 WBC 4.0 L (4.3-11.1) K/mcL Hgb 10.5 L (12.9-16.9) g/dL Hct 32.4 L (37.5-50.1) % Plt Count 311 (140-400) K/mcL Neutrophils # 3.5 (1.6-8.9) K/mcL BMP 08/09/16 04:57 Sodium 135 L Potassium 4.4 Chloride 103 Carbon Dioxide 23 BUN 15 Creatinine 0.92 Glucose 208 H Calcium 9.0 Cardiac Enzymes 08/09/16 08/09/16 Range/Units 00:48 04:57 Troponin I 0.78 H* 0.60 H* (0-0.03) ng/mL - ABG Interpretation ABG results: PT/INR, D-dimer PT 13.0 Seconds (9.4-12.1) H 08/08/16 20:17 - Attending Attestation I examined this patient and my medical decision-making was reviewed with the Resident Physician on 08/09/16. I agree with the documented findings, disposition and treatment plan as described except to the extent set forth below. Mr Rahman is currently admitted for acute NSTEMI. He is moderate to high risk due to potential for worsening cardiac status. Mr. Rahman was quite dyspneic earlier. He had cath and stent placement and is doing better. Exam Alert. Comfortable Heart reg Lungs clear I/P 1. NSTEMI 2. CAD Further diagnoses and plan as above.
--- NOTE | 2016-08-09 15:18 | Invasive Diagnostic Lab ---
Name: Sravan Rahman Date of Study: 08/09/2016 Date: 1950 Ht: 179.8 cm /70.8 in Medical Record#: [id number] Age: 65 Wt: 69.5 kg / 153.22 lb Account/Order#: [id number] Gender: Male BSA: 1.88 Order #: [id number] Fluoro Dose: 1093 mGy BMI: 21.5 Procedure Physician: Lowell Plasencia MD, FACC Referring MD: Referring MD: Procedures Performed: LEFT HEART CATH PTCA Single Major Vessel Indications: Non-Stemi Impressions: There is severe two vessel coronary artery disease. There is severe LV Dysfunction EF 20% dilated cardiomyopathy Mild aortic stenosis. Recommendations: Optimal medical therapy of patient's disease. Aggressive risk factor modification. History/Risk Factors: Diabetes Hypertension Dyslipidemia Family History of CAD Peripheral Vascular Disease Chronic Lung Disease Procedure Access obtained in the right Femoral artery by percutaneous puncture Patient had successful PTCA in the proximal Circ. Complications: None Contrast: Isovue 117ml Hemodynamics: Pressures Site Systolic/ A Wave Diastolic/ V Wave End Diastolic/ Mean HR AO 73 52 62 94 AO 71 58 64 91 LV 94 13 30 95 LV 89 18 38 93 AO 73 44 59 92 AO 74 54 63 95 AO 76 64 70 110 AO 81 68 74 103 LV Ventriculography Ejection Method: LV Gram Ejection Fraction: 20% Wall Motion: WISDOM Anterobasal Severe Hypokinesis Anterolateral Severe Hypokinesis Apical: Severe Hypokinesis Inferoapical Severe Hypokinesis Inferobasal Severe Hypokinesis Coronary Dominance: right Lesion Findings/Interventions * Left Main Coronary Artery The LMCA is angiographically free of disease. * Left Anterior Descending There is a 30% stenosis in the Proximal LAD. There is a 50% stenosis in the Mid LAD. There is a 50% stenosis in the Distal LAD. * Circumflex * Right Coronary Artery There is a 99% stenosis in the Proximal RCA. There is a 100% stenosis in the Mid RCA. Left to right collaterals. Small caliber vessel. Interventional Device(s) Vessel Segment Type Name Diameter (mm) Length (mm) Proximal Circumflex balloon Emerge Monorail 2 12 Updated by RT Ruddy (R) on 08/09/2016 2:53:36 PM Lowell Plasencia MD, FACC electronically signed on 08/09/2016 3:12:52 PM with status of Final
--- NOTE | 2016-08-09 16:05 | Invasive Diagnostic Lab Proc ---
Name: Sravan Rahman Date of Study: 08/09/2016 Date: 1950 Ht: 70.8in Medical Record#: [id number] Age: 65 Wt: 153.22lb Gender: Male BSA: 1.88 Order #: [id number] BMI: 21.5 Physicians Procedure Physician: Lowell Plasencia MD, [facility] Referring MD: Referring MD: Staff Name Position Time In Xenia Phillips RT (R) Monitor 01:24 PM Viiven Dixon RN Seo Coordinator 01:25 PM Meaghan Wade RT Scrub 01:25 PM Jackie Sena RN Seo Coordinator 02:41 PM Indications Indication Non-Stemi Procedures Performed Procedure L HRT ARTERY/VENTRICLE ANGIO PRQ CARDIAC ANGIOPLAST 1 ART Pre-Procedure Checklist Informed consent is complete signed and on chart. H\\T\\P is on chart. ID band is on and ID verified with patient. Patient NPO for procedure The procedure was described for the patient and questions were answered. ECG is on chart. Plan of Care Patient will tolerate the procedure without complications. Adequate level of comfort will be maintained. Hemodynamics will remain stable Patient will recover from procedure without complications. Respiratory function will be maintained. Cardiac rhythm will remain stable. Patient temperature will be maintained. Patient and/or family have verbalized understanding of the procedure. Patient Education Chief Complaint/Reason for Test: Cardiac Cath Developmental Category: Adult (18-64 years) Developmentally Appropriate for Age: Yes Learning Barriers: None Education Needs: Procedure Education Method: Verbal Information Taught: Cardiac Cath Educational Evaluation: Able to repeat information Intravenous Access Time IV Size Location DC'd Fluid/Drip Rate Units RN 01:15 PM 18g 1 1/4" Patent On Arrival Lt Antecubital 0.9NaCl Vivien Dixon RN 01:15 PM 18g 1 1/4" Patent On Arrival Rt Antecubital Vivien Dixon RN Allergies No Known Allergies Vital Signs Time BP (mmHg) HR (bpm) O2 Sat. RR (bpm) LOC 12:45 PM 102 / 62 91 96 % 16 01:28 PM / % 4 = Oriented but drowsy 01:28 PM / % 4 = Oriented but drowsy 01:44 PM / % 4 = Oriented but drowsy 01:59 PM / % 4 = Oriented but drowsy 02:14 PM / % 4 = Oriented but drowsy 02:29 PM / % 4 = Oriented but drowsy 02:54 PM 83 / 54 91 95 % 16 5 = Fully awake and oriented or at pre-proc level 01:18 PM 111 / 67 98 100 % 4 01:23 PM 87 / 58 98 99 % 01:27 PM 148 / 99 93 96 % 01:29 PM 153 / 74 96 96 % 28 01:35 PM 116 / 89 94 94 % 26 01:39 PM 175 / 156 96 95 % 28 01:43 PM 133 / 109 98 95 % 16 03:00 PM 94 / 63 88 93 % 9 5 = Fully awake and oriented or at pre-proc level 03:15 PM 93 / 61 90 96 % 13 5 = Fully awake and oriented or at pre-proc level 03:30 PM 95 / 65 88 95 % 10 5 = Fully awake and oriented or at pre-proc level 03:45 PM 95 / 65 86 96 % 12 5 = Fully awake and oriented or at pre-proc level 03:50 PM 92 / 62 87 96 % 15 5 = Fully awake and oriented or at pre-proc level 03:55 PM 98 / 63 86 96 % 16 5 = Fully awake and oriented or at pre-proc level 04:00 PM 94 / 51 87 96 % 16 5 = Fully awake and oriented or at pre-proc level Procedural Medications Time Medication Dose Units Method Given By 01:19 PM Versed 2 mg Intravenous Vivien Dixon RN 01:19 PM Fentanyl 50 mcg Intravenous Vivien Dixon RN 01:19 PM Oxygen 4 L/min nasal cannula Vivien Dixon RN 01:43 PM Lidocaine 2% 0.5 ml Subcutaneous Lowell Plasencia MD, FACC 01:48 PM Lidocaine 2% 18 ml Subcutaneous Lowell Plasencia MD, FACC 02:11 PM Heparin 4000 units Intravenous Vivien Dixon RN ASA Classification: CLASS II- Mild systemic disease (i.e. well-controlled diabetes, hypertension, asthma, cigarette smoking) Lion Score Preprocedure Postprocedure Activity 2- Moves 4 extremities sustained head lift Activity 2- Moves 4 extremities sustained head lift Circulation 2- SBP +/= 20 points of pre-anesthetic level Circulation 2- SBP +/= 20 points of pre-anesthetic level Consciousness 2- Awake and alert oriented x 3 Consciousness 2- Awake and alert oriented x 3 O2 Saturation 2- Able to maintain O2 satruation of 92% on room air O2 Saturation 2- Able to maintain O2 satruation of 92% on room air Respiratory 2- Able to deep breathe and cough well Respiratory 2- Able to deep breathe and cough well Total Score 10 Total Score 10 Contrast Agent: Isovue Diagnostic Contrast: 117 ml Total Contrast: 117 ml Fluoro Dose: 1093 mGy Activated Clotting Time Time Seconds to Clot 02:38 PM 199 03:40 PM 169 Procedure Log Time Note Enter By 01:15 PM 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 twilson :18 PM Vitals capture started with the following parameters, Patient=Adult, Interval=5 min, Initial Mbquglhk=792 mmHg, Deflation Rate=5 mmHg, Cuff placed on Right Arm 01:18 PM CathStat :18 PM HR=98 bpm, TIHK=847/67 mmhg, RaJ2=827.0 %, Resp=4 B/min 01:19 PM Time: 13:19 Versed 2 mg Intravenous Given by Vivien Dixon RN twilson : PM Time: 13:19 Oxygen on at 4 L/min per nasal cannula by Vivien Dixon RN twilson : PM Time: 13:19 Fentanyl 50 mcg Intravenous Given by Vivien Dixon RN twilson : PM HR=98 bpm, NIBP=87/58 mmhg, SpO2=99.0 % 01:24 PM Patient charges- Angio tray pack, Navilyst 3mm J, Pulse Oximetry and ACIST tubing and transducer twilson : PM IV Supplies used: J loop Angio Cath. twilson :24 PM Case Delayed no twilson : PM Xenia Phillips RT (R) Position: Monitor Time in: :24 twilson : PM Vivien Dioxn RN Position: Seo Coordinator Time in: :25 twilson : PM Meaghan Wade RT Position: Scrub Time in: :25 twilson : PM NIBP STAT measurement started. : PM Hair removed from procedure site in procedure lab using clippers. Right wrist prepped with Chloraprep by Xenia Phillips RT (R), safety strap applied then patient was draped. Skin intact. twilson : PM Procedure start 13:15 twilson : PM HR=93 bpm, MHYU=351/99 mmhg, SpO2=96.0 % 01:27 PM Pressure channel 1 zero failed. 01:27 PM Pressure channel 1 zero failed. 01:27 PM Pressure channel 1 zeroed. 01:28 PM Time: 13:28 Patient comfortable and pain free: Yes twilson :28 PM Time: 13:28LOC: 4 = Oriented but drowsy twilson 01:29 PM HR=96 bpm, AHHW=880/74 mmhg, SpO2=96.0 %, Resp=28 B/min 01:35 PM HR=94 bpm, RVVH=234/89 mmhg, SpO2=94.0 %, Resp=26 B/min 01:39 PM HR=96 bpm, PAED=744/156 mmhg, SpO2=95.0 %, Resp=28 B/min 01:39 PM NIBP STAT measurement started. 01:41 PM Vitals capture stopped. 01:42 PM NIBP STAT measurement started. 01:43 PM HR=98 bpm, OPVW=991/109 mmhg, SpO2=95.0 %, Resp=16 B/min 01:43 PM Time out performed according to hospital policy twilson 01:43 PM ASA Class CLASS II- Mild systemic disease (i.e. well-controlled diabetes, hypertension, asthma, cigarette smoking) twilson 01:43 PM Time: 13:43 0.5 ml Lidocaine 2% to right radial Subcutaneous Given by Lowell Plasencia MD, [facility] twilson 01:44 PM Time: 13:28 Patient comfortable and pain free: Yes twilson :44 PM Time: 13:28LOC: 4 = Oriented but drowsy twilson 01:47 PM Unable to access right radial artery. twilson 01:47 PM Preparing for groin access. twilson 01:48 PM Time: 13:48 18 ml Lidocaine 2% to right groin Subcutaneous Given by Lowell Plasencia MD, [facility] twilson 01:52 PM Unsuccessful attempt to right groin. Manual pressure applied. twilson 01:55 PM Access obtained by percutaneous puncture. 6Fr 10cm Terumo Glidesheath sheath placed in right Femoral artery. [id number] twilson 01:55 PM 0.035 145cm Glidewire wire [id number] twilson 01:56 PM 5Fr JL3.5 catheter inserted over the wire [id number] twilson 01:57 PM Wire removed, intact. twilson 01:57 PM Recorded Pressure: Ao, HR=94, Condition=Condition 1 (Aorta) Ao 73/52/62 01:57 PM LCA angiography performed in multiple views. twilson 01:58 PM 0.035 145cm Navilyst 3mmJ wire [id number] twilson 01:58 PM Catheter removed twilson 01:58 PM 5Fr FR 4 catheter inserted over the wire DN twilson 01:58 PM Lesion found in Proximal LAD. Pre Stenosis: 30 Pre THOM Flow: twilson 01:58 PM Lesion found in Mid LAD. Pre Stenosis: 50 Pre THOM Flow: twilson 01:59 PM Lesion found in Distal LAD. Pre Stenosis: 50 Pre THOM Flow: twilson 01:59 PM Time: 13:44 Patient comfortable and pain free: Yes twilson 01:59 PM Time: 13:44LOC: 4 = Oriented but drowsy twilson 01:59 PM Mid/Distal Left Anterior Descending Coronary Artery and diagonal branches with 50% stenosis. If graft is supplying this area, 0 % stenosis twilson 01:59 PM Proximal Left Anterior Descending Coronary Artery with 30% stenosis. If graft is supplying this territory, 0 % stenosis. twilson 01:59 PM Lesion found in Proximal Circumflex. Pre Stenosis: 99 Pre THOM Flow: twilson 01:59 PM Circumflex, Obtuse Marginal, Left Posterior Descending, and Left Posterolateral Coronary Arteries with 99 % stenosis. If graft is supplying this area, 0 % stenosis twilson 01:59 PM Wire removed, intact. twilson 01:59 PM Recorded Pressure: Ao, HR=91, Condition=Condition 1 (Aorta) Ao 71/58/64 02:00 PM RCA angiography performed in multiple views. twilson 02:00 PM Wire reinserted and catheter removed. twilson 02:01 PM 5Fr Pigtail catheter inserted over the wire [facility] twilson 02:02 PM Catheter selectively placed in left ventricle twilson 02:02 PM Wire removed, intact. twilson 02:02 PM Bolus angiogram of left Ventricle complete: 10 ml/sec for a total of 30 mls twilson 02:02 PM Recorded Pressure: LV, HR=95, Condition=Condition 1 (Left Ventricle) LV 94/13/30 02:03 PM Recorded Pressure: LV, Ao, HR=92, Condition=Condition 1 (Left Ventricle) LV 89/18/38, (Aorta) Ao 73/44/59 02:05 PM Catheter removed twilson 02:05 PM JR4 reinserted and wire removed twilson 02:07 PM Lesion found in Proximal RCA. Pre Stenosis: 99 Pre THOM Flow: twilson 02:07 PM Lesion found in Mid RCA. Pre Stenosis: 100 Pre THOM Flow: twilson 02:07 PM Right Coronary, Right Posterior Descending Arteries with Right Posterolateral and Acute Marginal branches with 100 % stenosis. If graft is supplying this area, 0 % stenosis twilson 02:09 PM Inflation device was opened. twilson 02:09 PM Catheter removed twilson 02:09 PM 6Fr EBU 3.5 Medtronic guide catheter was used to cannulate the PCI vessel successfully. reused? No twilson 02:10 PM ACT drawn twilson 02:10 PM Wire removed, intact. twilson 02:11 PM Time: 14:11 Heparin 4000 units Intravenous Given by Vivien Dixon RN twilson 02:12 PM .014 PT Graphix 182cm guide wire across target lesion- successful. reused? No twilson 02:13 PM Recorded Pressure: Ao, HR=95, Condition=Condition 1 (Aorta) Ao 74/54/63 02:14 PM Time: 13:59 Patient comfortable and pain free: Yes twilson 02:14 PM Time: 13:59LOC: 4 = Oriented but drowsy twilson 02:14 PM .014 Prowater 180cm guide wire across target lesion- successful. reused? No twilson 02:16 PM 2.0 mm x 12 mm Emerge Monorail balloon across target lesion- successful. reused? No (inserted onto PT Graphix) twilson 02:21 PM External defib pads applied. twilson 02:22 PM Recorded Pressure: Ao, IL=240, Condition=Condition 1 (Aorta) Ao 76/64/70 02:24 PM Balloon inflated @ 6 marisol for 12 seconds twilson 02:25 PM Balloon inflated @ 8 marisol for 10 seconds twilson 02:27 PM Recorded Pressure: Ao, GL=504, Condition=Condition 1 (Aorta) Ao 81/68/74 02:27 PM Balloon inflated @ 8 marisol for 12 seconds twilson 02:29 PM Time: 14:14 Patient comfortable and pain free: Yes twilson 02:29 PM Time: 14:14LOC: 4 = Oriented but drowsy twilson 02:30 PM Both guidewires and balloon removed, intact. twilson 02:30 PM J-wire reinserted. twilson 02:31 PM Guide wire removed intact. twilson 02:33 PM Bolus angiogram of right Femoral complete: 2 ml/sec for a total of 4 mls twilson 02:34 PM Procedure completed at 14:34 twilson 02:34 PM Sign out completed: Radiation Dose 1093.40 mGy Fluoro Time: 10.9 Isovue 370 - 200ml contrast 117 ml given by Lowell Plasencia MD, FACC. Complications: NoneCardiac Rehab Consult needed: NoConfirmed administered medications: Yes twilson 02:34 PM Isovue 370 - 500ml,1 Bottle(s) used. twilson 02:35 PM Sheath left in place to be pulled on floor/holding areaV+Pad twilson 02:38 PM At 14:38 the ACT was 199 seconds. twilson 02:40 PM Family placed in consult room. twilson 02:40 PM Coronary Dominance: right twilson 02:41 PM Post ECG NSR twilson 02:42 PM Post Blood Pressure 133/109 twilson 02:42 PM 14:42 Post Pulses Bilateral DP \\T\\ PT 1+ twilson 02:44 PM Time: 14:29 Patient comfortable and pain free: Yes twilson 02:44 PM Time: 14:29LOC: 4 = Oriented but drowsy twilson 02:44 PM Information taught Cardiac Cath and PTCA twilson 02:44 PM Education needs Procedure, Plan of Care, and Responsibilities of Patient in Care twilson 02:44 PM Learning barriers :None twilson 02:44 PM Education Methods Verbal twilson 02:44 PM Education evaluation Able to repeat information twilson 02:44 PM Site status No bleeding/hematoma - Rt Groin as reported by Meaghan Wade RT at 14:44 twilson 02:44 PM Opsite applied twilson 02:44 PM No 2N beds, patient will remain in holding room until sheath is pulled and can go back to 2NE. twilson 02:49 PM Report given to Ansley VALERIO Pt taken to Holding room Room #2. 14:49 twilson 02:49 PM Patient out of room: 14:49 twilson 02:55 PM received patient to holding room. monitors applied and [facility] 03[facility]40 PM At 15:40 the ACT was 169 seconds. [email or web address] 03:44 PM Arterial sheath pulled using manual compression and V+ Pad for 15 minutes by Meaghan Wade RT [email or web address] 03:55 PM Report given to Christa VALERIO Pt taken to E Room #21. 15:54 lpabar 04:00 PM Patient out of room: 16:00 danelle Complications Complication None Hemodynamics Pressures Site Systolic/A Wave Diastolic/V Wave Mean AO 73 52 62 AO 71 58 64 LV 94 13 30 LV 89 18 38 AO 73 44 59 AO 74 54 63 AO 76 64 70 AO 81 68 74 Post Procedure Information Blood Pressure: 133/109 mmHg Rhythm: NSR Post procedural instructions were given Closure Device Time Device Success/Fail 08/09/2016 3:44:00 PM Manual Compression Successful Site Checks Time Location Status Staff Sheath In? Note 02:44 PM Rt Groin No bleeding/hematoma Meaghan Wade RT Yes 02:53 PM Rt Groin No bleeding/ No Hematoma Ansley Andres RN Yes 03:00 PM Rt Groin No bleeding/ No Hematoma Ansley Andres RN Yes 03:15 PM Rt Groin No bleeding/ No Hematoma Ansley Andres RN Yes 03:30 PM Rt Groin No bleeding/ No Hematoma Ansley Andres RN Yes 03:45 PM Rt Groin No bleeding/ No Hematoma Ansley Andres RN manual pressure held 04:00 PM Rt Groin No bleeding/ No Hematoma Meaghan Wade RT Pulses Time Site Pre-Procedure Post-Procedure Note 08/09/2016 12:46:00 PM Bilateral DP \\T\\ PT 1+ 2:42:00 PM Bilateral DP \\T\\ PT 1+ 08/09/2016 3:00:00 PM Bilateral DP \\T\\ PT 1+ 08/09/2016 3:15:00 PM Bilateral DP \\T\\ PT 1+ 08/09/2016 3:30:00 PM Bilateral DP \\T\\ PT 1+ 08/09/2016 4:00:00 PM Bilateral DP \\T\\ PT 1+ Updated by Ansley Andres RN on 08/09/2016 3:59:14 PM electronically signed on 08/09/2016 3:59:50 PM with status of Final
[2016-08-09] MEDS: Ipratropium/Albuterol Neb 3 ML IH SCH ×2 (16:27→21:20)
--- NOTE | 2016-08-09 17:01 | Electrocardiograph Report ---
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
[2016-08-09] MEDS ORDERED: 0.9 % Sodium Chloride 500 ML IVC ONE (18:00)
[2016-08-09] MEDS ORDERED: Furosemide 20 MG/2 ML VIAL IVP ONE (18:24)
[2016-08-09] MEDS: *HR* Heparin 5,000 UNIT/ML VIAL SQ SCH (21:08)
[2016-08-10] MEDS: Insulin LISPRO 300 UNITS/3 ML VIAL SQ SCH ×3 (02:26→13:18)
[2016-08-10] MEDS: Ipratropium/Albuterol Neb 3 ML IH SCH ×2 (03:54→10:31)
[2016-08-10 05:42] LABS: Basophils % 0.2 %; Eosinophils % 0.3 %; Hematocrit 31.4 % (37.5-50.1); Hemoglobin 10.1 g/dL (12.9-16.9); Immature Granulocytes % 0.4 % (0-4); Lymphocytes # 1.6 K/mcL (0.6-4.6); Lymphocytes % 14.7 %; Mean Corpuscular HGB Conc 32.2 g/dL (31.6-35.5); Mean Corpuscular Hemoglobin 29.4 pg (28.0-33.3); Mean Corpuscular Volume 91.5 fL (83.0-100.0); Mean Platelet Volume 10.1 fL (9.4-12.4); Monocytes % 9.3 %; Neutrophils # 8.3 K/mcL (1.6-8.9); Platelet Count 348 K/mcL (140-400); Red Blood Count 3.43 M/mcL (4.19-5.50); Red Cell Distribution Width 13.4 % (11.5-14.5); Segmented Neutrophils % 75.1 %
[2016-08-10 05:56] LABS: BUN/Creatinine Ratio 20 (6-26); Blood Urea Nitrogen 19 mg/dL (8-26); Carbon Dioxide 24 mEq/L (19-29); Chloride 107 mEq/L (98-109); Potassium 4.2 mEq/L (3.5-4.5); Sodium 139 mEq/L (136-145)
[2016-08-10 05:57] LABS: Calcium 8.4 mg/dL (8.6-10.8); Glucose 109 mg/dL (70-99); Osmolality,Calculated 291 (280-300); eGFR For African Americans > 60 (> 60); eGFR For Non-African Americans > 60 (> 60)
[2016-08-10] MEDS: *HR* Heparin 5,000 UNIT/ML VIAL SQ SCH (06:12)
[2016-08-10] MEDS: Cholecalciferol (D-3) 1,000 UNIT TABLET PO SCH (07:49)
[2016-08-10] MEDS: Aspirin 81 MG TAB.CHEW PO SCH (07:49)
[2016-08-10] MEDS: (Fluticasone Propionate [Flovent Hfa] 2 PUFF) IH SCH (07:51)
[2016-08-10] MEDS ORDERED: Furosemide 20 MG TABLET PO SCH (09:00)
--- NOTE | 2016-08-10 09:55 | Discharge Summary ---
<Abdirizak Holland - Last Filed: 08/10/16 16:50> Date of Encounter: 08/10/16 Time of Encounter: 09:51 - Discharge Diagnosis (1) NSTEMI (non-ST elevated myocardial infarction) Priority: Primary Status: Acute (2) COPD exacerbation Priority: Secondary Status: Ruled-out (3) Tobacco abuse Priority: Secondary Status: Acute (4) DVT prophylaxis Priority: Secondary Status: Acute (5) Essential hypertension Priority: Secondary Status: Chronic - Discharge Medications Prescriptions: Atorvastatin [Lipitor] 40 mg PO HS #30 tablet predniSONE [PredniSONE] 10 mg PO TAPER #20 tablet Tamsulosin [Flomax] 0.4 mg PO DAILY #30 capsule Home Medications: Albuterol Sulfate [Albuterol Inhaler] 2 puff IH Q4HR PRN 11/13/14 [History] Aspirin 81 mg PO DAILY 11/14/14 [History] Atorvastatin [Lipitor] 40 mg PO HS 11/14/14 [History] Cholecalciferol (Vitamin D3) [Vitamin D3] 1,000 unit PO DAILY 11/14/14 [History] Clopidogrel [Plavix] 75 mg PO DAILY 11/14/14 [History] Tamsulosin [Flomax] 0.4 mg PO DAILY 11/14/14 [History] Ferrous Gluconate 324 mg PO DAILY 12/13/15 [History] Ipratropium [place] 1 spray NS DAILY 12/13/15 [History] Metformin HCl [Metformin HCl ER] 1,000 mg PO QPM 12/13/15 [History] Oxygen 3 l IH HS 12/13/15 [History] Ranitidine HCl [Heartburn Relief] 150 mg PO BID PRN 12/13/15 [History] Fluticasone Propionate [Flovent Hfa] 2 puff IH BID 08/08/16 [History] Ipratropium/Albuterol Neb [Duoneb] 3 ml IH Q6H PRN 08/08/16 [History] Atorvastatin [Lipitor] 40 mg PO HS #30 tablet 08/10/16 [Rx] Tamsulosin [Flomax] 0.4 mg PO DAILY #30 capsule 08/10/16 [Rx] predniSONE [PredniSONE] 10 mg PO TAPER #20 tablet 08/10/16 [Rx] Allergies/Adverse Reactions: Allergies No Known Allergies Allergy (Verified 07/08/16 16:02) Procedures/tests Complete & Pending: Procedures Performed prior 72 hours Category Date Time Status CL Cardiac Catheterization [CL] Routine Senior Trial Attorney 08/09/16 12:08 Completed ECG 12 lead ECG [ECG] Routine Y 08/09/16 14:38 Ordered EV echocardiogram Routine Y 08/09/16 01:28 Completed Date of admission: 08/08/16 23:16 Primary care physician: Saul Grayson MD Consults: 08/09/16 10:14 Consult to Cardiac Rehabilitation-Phase1 [CONS] Routine Comment: Reason for Consult: NSTEMI, possible LHC today. 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 Please follow up with cardiology. Since her blood pressure is 90/64. Lisinopril, your blood pressure medication. He will follow up with cardiology and blood pressure medication and resumed if you have improved blood pressure. We will hold giving off metoprolol as you continue to have shortness of breath with exertion as this medication can exacerbate her COPD. Activity restrictions reviewed. No driving for one week. No heavy lifting over ten lbs for one week. No soaking for one week. Keep right groin dry and clean. Reportable symptoms such as hematoma, swelling, redness, or drainage reviewed with patient. - Diet and Activity Activity: increase activity as tolerated Diet: diabetic diet, low fat, low cholesterol, low salt diet Interval History: 65 y/o male presents with SOB for the past two months. SOB is not progressively worsening. He was dx with bronchitis in June and treated with antibiotics and steroids. However, his symptoms did not improve. He also had CT Chest on July 24 which showed b/l lower lobe opacities considered to be pneumonia. Patient's shortness of breath did not improve with bronchodilators, nebulizer treatments. He uses 3 L of oxygen at night. Patient has a history of coronary artery disease with his last cardiac catheter in 2012 showed moderate three-vessel disease. Patient had echocardiogram in 2013 showing EF of 60-65% with mild stenosis. Patient was found to have ST segment depressions in the precordial leads V5 and V6. Troponin was 1.57, 0.78, 0.6 respectively. Echocardiogram showed EF of 25% with global hypokinesis and moderate aortic stenosis and patient was directly taken for cardiac catheterization. Patient underwent PTCA of circumflex artery. He had severe LV dysfunction with EF of 20% and mild aortic stenosis. The LAD had mid and distal 50% stenosis. Right coronary artery had 99% stenosis in the proximal and her percent stenosis in the mid RCA with [id number] collaterals. Patient has improvement of chest heaviness and shortness of breath after cardiac catheterization. Overnight he had no complications. His blood pressure remained stable at 98/60. Due to this hypotension and his lisinopril was discontinued. This morning patient had mild shortness of breath with SPO2 of 92% on room air. He qualified for 3 liters oxygen daily. Patient will be discharged on dual antiplatelet therapy for a minimum of 6 months, activity restrictions, with follow-up appointment in cardiology in a week and follow-up with PCP in a week. He was also discharged with a prednisone Dosepak and requested refills for tamsulosin and atorvastatin. Patient was told to discontinue lisinopril due to hypotension. Furthermore he was not started on a beta michelle secondary to COPD , and hypotension. Patient will follow-up with restrooms or lounges maid outpatient for further treatment of COPD. Hospital course: Mr. Rahman is a 65 year old male - Time Spent with Patient Total time spent providing and/or coordinating discharge services: - Constitutional Vitals: Temp Pulse Resp BP Pulse Ox 98.0 F 87 15 98/70 97 08/10/16 07:22 08/10/16 07:22 08/10/16 07:22 08/10/16 07:22 08/10/16 07:22 General appearance: Present: mild distress, A&O X 3, answers questions appropriately - Head Head exam: Present: atraumatic, normocephalic - Eye Eye exam: Present: PERRL, conjuntiva pink, sclera anicteric - Neck Neck exam general surgery: Present: supple, trachea midline. Absent: lymphadenopathy - Respiratory Respiratory exam: Present: decreased breath sounds, CTAB - Cardiovascular Cardiovascular exam: Present: RRR, +S1, +S2. Absent: diastolic murmur, gallop, rubs, systolic murmur - GI/Abdominal GI/Abdominal exam: Present: normal bowel sounds, soft, no peritoneal signs. Absent: distended, tenderness - Extremities Exam Extremities exam: Present: warm, radial pulses palpable and symetrical. Absent : calf tenderness, cyanotic, pedal edema - Neurological Exam Neurological exam: Present: CN II-XII intact, oriented X3, no focal deficits. Absent: pronater drift, facial droop, speech deficit - Skin Skin exam: Present: dry, intact <Cristopher Hernandez - Last Filed: 08/10/16 18:20> Date of Encounter: 08/10/16 - Discharge Diagnosis (1) NSTEMI (non-ST elevated myocardial infarction) Status: Acute (2) CAD (coronary artery disease) Priority: Secondary Status: Chronic Qualifiers: Coronary Disease-Associated Artery/Lesion type: [place] artery [place] vs. transplanted heart: [place] heart Associated angina: without angina Qualified Code(s): I25.10 - Atherosclerotic heart disease of [place] coronary artery without angina pectoris (3) DM2 (diabetes mellitus, type 2) Priority: Secondary Status: Chronic Qualifiers: Diabetes mellitus complication status: with unspecified complications Diabetes mellitus correction insulin use: without correction use Qualified Code( s): E11.8 - Type 2 diabetes mellitus with unspecified complications (4) Essential hypertension Status: Chronic (5) COPD (chronic obstructive pulmonary disease) Priority: Secondary Status: Chronic Qualifiers: COPD type: unspecified COPD Qualified Code(s): J44.9 - Chronic obstructive pulmonary disease, unspecified (6) PVD (peripheral vascular disease) Priority: Secondary Status: Chronic Procedures/tests Complete & Pending: Procedures Performed prior 72 hours Category Date Time Status CL Cardiac Catheterization [CL] Routine Senior Trial Attorney 08/09/16 12:08 Completed ECG 12 lead ECG [ECG] Routine Y 08/09/16 14:38 Ordered EV echocardiogram Routine Y 08/09/16 01:28 Completed Date of admission: 08/08/16 23:16 Primary care physician: Saul Grayson MD Consults: 08/09/16 10:14 Consult to Cardiac Rehabilitation-Phase1 [CONS] Routine Comment: Reason for Consult: NSTEMI, possible LHC today. Call Completed: No Hospital course: Mr. Rahman is a 65 year old male - Time Spent with Patient Total time spent providing and/or coordinating discharge services: 39min - Constitutional Vitals: Temp Pulse Resp BP Pulse Ox 98.0 F 99 16 108/54 97 08/10/16 12:00 08/10/16 12:00 08/10/16 12:00 08/10/16 12:00 08/10/16 12:00 - Attending Attestation I examined this patient and my medical decision-making was reviewed with the Resident Physician on 08/10/16. I agree with the documented findings, disposition and treatment plan as described except to the extent set forth below. Mr. Rahman had cath and stent placement yesterday. He is afebrile today and has stable vitals. He still has some dyspnea but is baseline. Exam Alert. Comfortable at rest Heart reg No wheeze Plan D/C home today Followup as outpatient.
[2016-08-10] MEDS ORDERED: predniSONE 20 MG TABLET PO ONE (10:10)
--- NOTE | 2016-08-10 11:25 | Cardiology Progress Note ---
Date of Encounter: 08/10/16 Time of Encounter: 11:20 Assessment and Plan (1) NSTEMI (non-ST elevated myocardial infarction) Current Visit: Yes Status: Acute Peak troponin 1.57 with downward trend. ECG changes noted, ischemic vs. LVH. S/p PCI of the left circumflex artery. Importance of DAPT with asa and plavix for minimum of 6 months discussed and he voiced understanding. Kidney function remains stable. Activity restrictions reviewed. No driving for one week. No heavy lifting over ten lbs for one week. No soaking for one week. Keep right groin dry and clean. Reportable symptoms such as hematoma, swelling, redness, or drainage reviewed with patient. F/u appt with [facility] in 1 week will be made by office. (2) Cardiomyopathy Current Visit: Yes Status: Acute TTE- EF 25% with global and segmental systolic dysfunction. S/p angioplasty to pCx artery severe stenosis. Currently euvolemic. On maintenance lasix. CHF education reviewed. Low sodium diet and daily weights. Start low dose bb. Noted to be mildy tachycardiac. No hakeem-inhibitor d/t hypotension. Qualifiers: Cardiomyopathy type: ischemic Qualified Code(s): I25.5 - Ischemic cardiomyopathy (3) CAD (coronary artery disease) Current Visit: Yes Status: Chronic Underwent LHC 08/09/16. S/p proximal left circumflex PTCA. There was 50% stenosis in the mid and distal LAD. There was 99% stenosis in the proximal RCA and 100% stenosis in the mid RCA. Collateral vessels from left to right seen. Aspirin, plavix, statin, and bb. Qualifiers: Coronary Disease-Associated Artery/Lesion type: [place] artery [place] vs. transplanted heart: [place] heart Associated angina: without angina Qualified Code(s): I25.10 - Atherosclerotic heart disease of [place] coronary artery without angina pectoris Discussion w patient/family: The assessment and plan as outlined above was discussed with the patient and/or family members who expressed understanding and agreement. All questions were answered. Thank you for involving us in the care of your patient. Please call with any questions. Subjective Principal diagnosis: CHF, CAD Interval history: Denies chest pain overnight. Mild tenderness at right groin access site. Ambulated in room without difficulty. Objective Vital Signs, Last 4 Hours Temp Pulse Resp BP Pulse Ox 08/10/16 07:22 98.0 F 87 15 98/70 97 General: Conversant, No Apparent Distress HEENT: Atraumatic, Normocephaly, Mucus Membranes Moist Neck: No JVD, Normal carotid pulses Cardiac: Reg Rate and Rhythm, Normal S1 and S2, No Murmur, Other (ST with PVC) Lungs: Normal Breath Sounds, No Wheeze, Rales, Rhonchi Neuro: Alert and responsive, No focal deficits noted Abdomen: Soft, Non-Tender Skin: No rashes noted on visualized skin Musculoskeletal: No Chest Wall Tenderness Extremities: No Clubbing, No Cyanosis, No Edema, Normal Pulses, Other (Right groin with small knot at access site area. No significant hematoma, redness or drainage. ) Results 08/10/16 04:03 08/10/16 04:03 Lab Results 08/10/16 08/10/16 04:03 04:03 WBC 11.0 D Hgb 10.1 L Hct 31.4 L Plt Count 348 Sodium 139 Potassium 4.2 Chloride 107 Carbon Dioxide 24 BUN 19 Creatinine 0.93 Glucose 109 H Calcium 8.4 L Magnesium 2.0 - Imaging and Cardiology Echo: report reviewed Cardiac cath: report reviewed - EKG Interpretation EKG results cardiology: personally reviewed (ST- sinus arryhythmia with PVC.) Consult Discharge Plan - Plan Instructions: Prednisone (By mouth), Myocardial Infarction (DC), Diabetes Mellitus Type 2 in Adults (DC), Chronic Obstructive Pulmonary Disease (DC), Chronic Hypertension (DC), Pneumonia (DC), Cigarette Smoking and Your Health, 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 Please follow up with cardiology. Since her blood pressure is 90/64. Lisinopril, your blood pressure medication. He will follow up with cardiology and blood pressure medication and resumed if you have improved blood pressure. We will hold giving off metoprolol as you continue to have shortness of breath with exertion as this medication can exacerbate her COPD. Referrals: Saul Grayson MD [Primary Care Provider] - 08/18/16 2:00 pm Juan Ramon Becerril DO [Partnered Physician] - Prescriptions: predniSONE [PredniSONE] 10 mg PO TAPER #20 tablet
[2016-08-10] MEDS ORDERED: Metoprolol XL (24 HR) Succ 25 MG TAB.ER.24H PO SCH (11:45)
[2016-08-10 12:09] VITALS: BP 108/54
--- NOTE | 2016-08-10 13:34 | Electrocardiograph Report ---
[place] [id number] Test Date: 2016-08-08 Pat Name: Sravan Rahman Department: 104 Room: 2NE21 Gender: Balance Truer: CHENCHO : 1950 Requested By: Saleem Raymundo Order Number: [id number] Reading MD: Jb Moore MD Measurements Intervals [place] Rate: 108 P: ME: 190 QRS: 51 QRSD: 96 T: -68 QT: 342 QTc: 405 Interpretive Statements SINUS TACHYCARDIA ST DEVIATION AND MODERATE T-WAVE ABNORMALITY, CONSIDER INFEROLATERAL ISCHEMIA Electronically Signed On 08-10-2016 13:32:31 EDT by Jb Moore MD
== END 2016-08-10 15:15 | disposition home or self-care (01) | DRG 251 ==
LOC: 2NENU 17:24 → EMEROO 17:24 → 2NENU 21:59
PROVIDERS: ADMIT Internal Medicine; ATTEND Internal Medicine

== ENCOUNTER 2016-08-17 12:48 | Inpatient (IN) ==
[2016-08-17] MEDS ORDERED: Ipratropium/Albuterol Neb 3 ML IH ONE (12:49)
[2016-08-17] MEDS ORDERED: methylPREDNISolone 125 MG/2 ML VIAL IVP ONE (12:49)
[2016-08-17 13:20] LABS: INR 1.1; Prothrombin Time 11.9 Seconds (9.4-12.1)
[2016-08-17 13:23] LABS: Activated Partial Thrombo Time 26.9 Seconds (26.0-36.0)
[2016-08-17 13:25] LABS: ABG Base Excess 2.9 mEq/L (-2.0 to 3.0); ABG HCO3 28.5 mEQ/L (21-27); ABG Oxygen Saturation 100 % (95-98); ABG PCO2 47 mmHg (35-45); ABG PH 7.39 pH Units (7.32-7.45); ABG PO2 227 mmHg (85-104); ABG TCO2 29.9 mEq/L (20-26); Blood Gas FiO2 50 %
[2016-08-17 13:27] LABS: BUN/Creatinine Ratio 20 (6-26); Blood Urea Nitrogen 18 mg/dL (8-26); Calcium 8.7 mg/dL (8.6-10.8); Carbon Dioxide 23 mEq/L (19-29); Chloride 102 mEq/L (98-109); Glucose 218 mg/dL (70-99); Osmolality,Calculated 291 (280-300); Potassium 4.7 mEq/L (3.5-4.5); Sodium 136 mEq/L (136-145); eGFR For African Americans > 60 (> 60); eGFR For Non-African Americans > 60 (> 60)
--- NOTE | 2016-08-17 13:36 | Emergency Department Note ---
Disposition Clinical Impression: Acute exacerbation of chronic obstructive airways disease Acute and chronic respiratory failure Qualifiers: Respiratory failure complication: hypoxia Qualified Code(s): J96.21 - Acute and chronic respiratory failure with hypoxia Disposition: Admitted As Inpatient Referrals: Saul Grayson MD [Primary Care Provider] - SOB HPI - General Chief Complaint: ED Shortness of Breath/Dyspnea Stated Complaint: BRANDY Time Seen by Provider: 08/17/16 12:49 Source: patient, EMS Limitations: no limitations Nursing Notes Reviewed: Yes Vital Signs Reviewed: Yes - History of Present Illness Pt Subjective Complaint: shortness of breath Onset (ago): week(s) (1) Context: recent illness Severity: severe Consistency/Duration: constant, gradually worsening Improves with: oxygen, rest, bronchodilators Worsens with: exertion Known history of: COPD Treatment prior to arrival: oxygen, bronchodilator, NIPPV - Related Data Home Medications Medication Instructions Recorded Confirmed Albuterol Sulfate [Albuterol 2 puff IH Q4HR PRN 11/13/14 08/08/16 Inhaler] Aspirin 81 mg PO DAILY 11/14/14 08/08/16 Atorvastatin [Lipitor] 40 mg PO HS 11/14/14 08/08/16 Cholecalciferol (Vitamin D3) 1,000 unit PO DAILY 11/14/14 08/08/16 [Vitamin D3] Clopidogrel [Plavix] 75 mg PO DAILY 11/14/14 08/08/16 Tamsulosin [Flomax] 0.4 mg PO DAILY 11/14/14 08/08/16 Ferrous Gluconate 324 mg PO DAILY 12/13/15 08/08/16 Ipratropium [place] 1 spray NS DAILY 12/13/15 08/08/16 Metformin HCl [Metformin HCl ER] 1,000 mg PO QPM 12/13/15 08/08/16 Oxygen 3 l IH HS 12/13/15 08/08/16 Ranitidine HCl [Heartburn Relief] 150 mg PO BID PRN 12/13/15 08/08/16 Fluticasone Propionate [Flovent 2 puff IH BID 08/08/16 08/08/16 Hfa] Ipratropium/Albuterol Neb [Duoneb] 3 ml IH Q6H PRN 08/08/16 08/08/16 Previous Rx's Medication Instructions Recorded Atorvastatin [Lipitor] 40 mg PO HS #30 tablet 08/10/16 Tamsulosin [Flomax] 0.4 mg PO DAILY #30 capsule 08/10/16 predniSONE [PredniSONE] 10 mg PO TAPER #20 tablet 08/10/16 Allergies Allergy/AdvReac Type Severity Reaction Status Date / Time No Known Allergies Allergy Verified 07/08/16 16:02 All systems ED: reviewed and negative except as stated. Constitutional: Denies: fever, chills Respiratory: Reports: dyspnea, wheezes Gastrointestinal: Denies: nausea, vomiting Past Medical History - Past Medical History Source: patient, old records reviewed, obtained from family, nursing notes reviewed Medical history: Reports: COPD, coronary artery disease, diabetes, hyperlipidemia, hypertension, peripheral artery disease Surgical history: Reports: angioplasty/stent, sinus surgery Psychiatric history: Reports: no psych history - Social History Smoking Status: Former smoker Smokeless Tobacco Status: No Alcohol use: Reports: heavy Drug use: Reports: none Physical Exam - General Limitations: no limitations General appearance: alert, in distress (Vision tachypneic using accessory muscles on BiPAP) - Head Head exam: atraumatic, normocephalic, normal inspection - Eye Eye exam: Present: normal appearance, PERRL, EOMI - ENT ENT exam: normal exam, normal oropharynx, mucous membranes moist - Neck Neck exam: Present: normal inspection, full ROM, trachea midline - Chest Chest inspection: Present: symmetric chest wall rise - Respiratory Respiratory exam: Present: respiratory distress, accessory muscle use, prolonged expiratory phase - Cardiovascular Cardiovascular exam: Present: tachycardia, normal heart sounds - Abdominal Exam Abdominal exam: Present: soft, Non-Tender. Absent: tenderness, distention, guarding, rebound, rigidity - Back Exam Back exam: Present: normal inspection, full ROM. Absent: tenderness - Neurological Exam Neurological exam: Present: alert, oriented X3 - Psychiatric Psychiatric exam: Present: normal affect, normal mood - Skin Skin exam: Present: warm Course - Reevaluation(s) Reevaluation #1: He is feeling much better than he did prior to arrival he wants to try nasal cannula. The BiPAP. Time: 14:18 Vital Signs Temperature 97.1 F L 08/17/16 12:50 Pulse Rate 116 08/17/16 12:50 Respiratory Rate 23 08/17/16 12:50 Blood Pressure 134/87 08/17/16 12:50 O2 Sat by Pulse Oximetry 99 08/17/16 12:50 Temperature 97.1 F L 08/17/16 12:50 Pulse Rate 111 08/17/16 14:36 Respiratory Rate 32 08/17/16 14:36 Blood Pressure 115/71 08/17/16 14:36 O2 Sat by Pulse Oximetry 96 08/17/16 14:36 Oxygen Delivery Oxygen Delivery Bipap Shortness of Breath/Dyspnea - Differential Diagnosis Likely: acute exacerbation of chronic obstructive airways disease, congestive heart failure, pneumonia, asthma with exacerbation, pulmonary embolism, pneumothorax, arrhythmia - Medical Records Medical records reviewed: Yes I reviewed the patient's medical records. - Lab Data Lab results reviewed: Yes I reviewed the patient's lab results. Result diagrams: 08/17/16 13:31 08/17/16 12:50 Lab Results 08/17/16 08/17/16 08/17/16 Range/Units 12:50 12:50 12:50 WBC (4.3-11.1) K/mcL RBC (4.19-5.50) M/mcL Hgb (12.9-16.9) g/dL Hct (37.5-50.1) % MCV (83.0-100.0) fL MCH (28.0-33.3) pg MCHC (31.6-35.5) g/dL RDW (11.5-14.5) % Plt Count (140-400) K/mcL MPV (9.4-12.4) fL Immature Gran % (0-4) % Seg Neutrophils % % Lymphocytes % % Monocytes % % Eosinophils % % Basophils % % Neutrophils # (1.6-8.9) K/mcL Lymphocytes # (0.6-4.6) K/mcL Monocytes # (0.0-1.3) K/mcL Eosinophils # (0.0-0.6) K/mcL Basophils # (0.0-0.2) K/mcL PT 11.9 (9.4-12.1) Seconds INR 1.1 APTT 26.9 (26.0-36.0) Seconds ABG pH (7.32-7.45) pH Units ABG pCO2 (35-45) mmHg ABG pO2 (85-104) mmHg ABG HCO3 (21-27) mEQ/L ABG Total CO2 (20-26) mEq/L ABG O2 Saturation (95-98) % ABG Base Excess (-2.0 to 3.0) mEq/L Blood Gas Modality Inspired O2 % Sodium 136 (136-145) mEq/L Potassium 4.7 H (3.5-4.5) mEq/L Chloride 102 (98-109) mEq/L Carbon Dioxide 23 (19-29) mEq/L BUN 18 (8-26) mg/dL Creatinine 0.90 (0.72-1.25) mg/dL Est GFR ( Amer) > 60 (> 60) Est GFR (Non-Af Amer) > 60 (> 60) BUN/Creatinine Ratio 20 (6-26) Glucose 218 H (70-99) mg/dL Calculated Osmolality 291 (280-300) Lactic Acid (0.5-2.2) mmol/L Calcium 8.7 (8.6-10.8) mg/dL Troponin I 0.21 H* (0-0.03) ng/mL B-Natriuretic Peptide (0-100) pg/mL 08/17/16 08/17/16 08/17/16 Range/Units 13:10 13:31 13:31 WBC 14.9 H (4.3-11.1) K/mcL RBC 3.57 L (4.19-5.50) M/mcL Hgb 10.1 L (12.9-16.9) g/dL Hct 32.6 L (37.5-50.1) % MCV 91.3 (83.0-100.0) fL MCH 28.3 (28.0-33.3) pg MCHC 31.0 L (31.6-35.5) g/dL RDW 13.1 (11.5-14.5) % Plt Count 401 H (140-400) K/mcL MPV 9.3 L (9.4-12.4) fL Immature Gran % 0.9 (0-4) % Seg Neutrophils % 88.6 % Lymphocytes % 4.4 % Monocytes % 5.3 % Eosinophils % 0.7 % Basophils % 0.1 % Neutrophils # 13.2 H (1.6-8.9) K/mcL Lymphocytes # 0.7 (0.6-4.6) K/mcL Monocytes # 0.8 (0.0-1.3) K/mcL Eosinophils # 0.1 (0.0-0.6) K/mcL Basophils # 0.0 (0.0-0.2) K/mcL PT (9.4-12.1) Seconds INR APTT (26.0-36.0) Seconds ABG pH 7.39 (7.32-7.45) pH Units ABG pCO2 47 H (35-45) mmHg ABG pO2 227 H (85-104) mmHg ABG HCO3 28.5 H (21-27) mEQ/L ABG Total CO2 29.9 H (20-26) mEq/L ABG O2 Saturation 100 H (95-98) % ABG Base Excess 2.9 (-2.0 to 3.0) mEq/L Blood Gas Modality bipap Inspired O2 50 % Sodium (136-145) mEq/L Potassium (3.5-4.5) mEq/L Chloride (98-109) mEq/L Carbon Dioxide (19-29) mEq/L BUN (8-26) mg/dL Creatinine (0.72-1.25) mg/dL Est GFR ( Amer) (> 60) Est GFR (Non-Af Amer) (> 60) BUN/Creatinine Ratio (6-26) Glucose (70-99) mg/dL Calculated Osmolality (280-300) Lactic Acid 1.6 (0.5-2.2) mmol/L Calcium (8.6-10.8) mg/dL Troponin I (0-0.03) ng/mL B-Natriuretic Peptide (0-100) pg/mL 08/17/16 Range/Units 13:31 WBC (4.3-11.1) K/mcL RBC (4.19-5.50) M/mcL Hgb (12.9-16.9) g/dL Hct (37.5-50.1) % MCV (83.0-100.0) fL MCH (28.0-33.3) pg MCHC (31.6-35.5) g/dL RDW (11.5-14.5) % Plt Count (140-400) K/mcL MPV (9.4-12.4) fL Immature Gran % (0-4) % Seg Neutrophils % % Lymphocytes % % Monocytes % % Eosinophils % % Basophils % % Neutrophils # (1.6-8.9) K/mcL Lymphocytes # (0.6-4.6) K/mcL Monocytes # (0.0-1.3) K/mcL Eosinophils # (0.0-0.6) K/mcL Basophils # (0.0-0.2) K/mcL PT (9.4-12.1) Seconds INR APTT (26.0-36.0) Seconds ABG pH (7.32-7.45) pH Units ABG pCO2 (35-45) mmHg ABG pO2 (85-104) mmHg ABG HCO3 (21-27) mEQ/L ABG Total CO2 (20-26) mEq/L ABG O2 Saturation (95-98) % ABG Base Excess (-2.0 to 3.0) mEq/L Blood Gas Modality Inspired O2 % Sodium (136-145) mEq/L Potassium (3.5-4.5) mEq/L Chloride (98-109) mEq/L Carbon Dioxide (19-29) mEq/L BUN (8-26) mg/dL Creatinine (0.72-1.25) mg/dL Est GFR ( Amer) (> 60) Est GFR (Non-Af Amer) (> 60) BUN/Creatinine Ratio (6-26) Glucose (70-99) mg/dL Calculated Osmolality (280-300) Lactic Acid (0.5-2.2) mmol/L Calcium (8.6-10.8) mg/dL Troponin I (0-0.03) ng/mL B-Natriuretic Peptide 1707 H (0-100) pg/mL - Radiology Data Radiology results reviewed: Yes I reviewed the patient's radiology results. - EKG Data EKG attestation: Yes I reviewed and interpreted this EKG. Critical Care Time Critical Care Time: Yes Total Critical Care Time: 35 Attestation: Critical care performed: Time is exclusive of separately billable procedures. Time includes: direct patient care, patient reassessment, coordination of patient care, interpretation of data (laboratory data, radiology data, and respiratory data), review of patient's medical records, medical consultation and documentation of patient care. Procedures included in critical care time: Procedures excluded from critical care time:
[2016-08-17 13:41] LABS: Basophils % 0.1 %; Eosinophils # 0.1 K/mcL (0.0-0.6); Eosinophils % 0.7 %; Hematocrit 32.6 % (37.5-50.1); Hemoglobin 10.1 g/dL (12.9-16.9); Immature Granulocytes % 0.9 % (0-4); Lymphocytes # 0.7 K/mcL (0.6-4.6); Lymphocytes % 4.4 %; Mean Corpuscular Hemoglobin 28.3 pg (28.0-33.3); Mean Corpuscular Volume 91.3 fL (83.0-100.0); Mean Platelet Volume 9.3 fL (9.4-12.4); Monocytes # 0.8 K/mcL (0.0-1.3); Monocytes % 5.3 %; Neutrophils # 13.2 K/mcL (1.6-8.9); Platelet Count 401 K/mcL (140-400); Red Blood Count 3.57 M/mcL (4.19-5.50); Red Cell Distribution Width 13.1 % (11.5-14.5); Segmented Neutrophils % 88.6 %
[2016-08-17] MEDS ORDERED: Aspirin 81 MG TAB.CHEW PO ONE (14:18)
[2016-08-17] MEDS ORDERED: Furosemide 40 MG/4 ML VIAL IVP ONE (14:30)
[2016-08-17] MEDS ORDERED: Famotidine 20 MG TABLET PO PRN (15:29)
[2016-08-17] MEDS ORDERED: Naloxone 0.4 MG/ML INJ IVP PRN (15:36)
[2016-08-17] MEDS ORDERED: Ondansetron ODT 4 MG TAB.RAPDIS SL PRN (15:36)
[2016-08-17] MEDS ORDERED: ALPRAZolam 0.5 MG TABLET PO PRN (16:56)
--- NOTE | 2016-08-17 17:16 | Internal Med History&Physical ---
<Pastrana,Traci J - Last Filed: 08/17/16 17:40> Date of Encounter: 08/17/16 Time of Encounter: 14:00 Assessment and Plan (1) Acute and chronic respiratory failure Current visit: Yes Status: Acute Presented with worsening shortness of breath and was placed on BiPAP in the ED. 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 Respiratory status stable and improved in the ED. Continue treating underlying causes. Wean BiPAP as able Qualifiers: Respiratory failure complication: hypoxia Qualified Code(s): J96.21 - Acute and chronic respiratory failure with hypoxia (2) Acute systolic (congestive) heart failure Current visit: Yes Status: Acute EF 20% per 08/09/2016 left heart catheter. Now with worsening shortness of breath for the last week. BNP 1707, chest x-ray with pulmonary congestion area and does not appear overtly overloaded. Will add low-dose IV Lasix as this may be contributing to worsening respiratory status. May need Lasix at discharge. Monitor I&Os, daily weights. Consult Cardiology if needed. (3) Acute exacerbation of chronic obstructive airways disease Current visit: Yes Status: Acute Presented with worsening shortness of breath for 1 week prior to admission. Wears O2 at at bedtime only now requiring it [id number]. Dyspneic and placed on BiPAP. With scant scattered wheezing on exam. Breathing improved with IV steroids and breathing treatments and BiPAP in the ED. WBC 14 K (has been on steroids), afebrile and no change in sputum production. Hold on ATB at this time. Continue IV steroids, nebs wean BiPAP as able (4) CAD (coronary artery disease) Current visit: No Status: Chronic Per history. 08/09/2016 left heart catheter with severe 2 vessel disease. Not amenable to stenting. Continue medical management. Troponin 0.21 however trending down, suspect this is secondary to left heart catheter. Patient does not complain of chest pain no acute ST changes on EKG. Continue to trend troponin consult cardiology if troponin uptrending or having chest pain. Qualifiers: Coronary Disease-Associated Artery/Lesion type: [place] artery [place] vs. transplanted heart: [place] heart Associated angina: without angina Qualified Code(s): I25.10 - Atherosclerotic heart disease of [place] coronary artery without angina pectoris (5) DM2 (diabetes mellitus, type 2) Current visit: No Status: Chronic Control unknown. Holding home metformin. Start SSI, monitor blood sugar and titrate PRN (been on steroids at home and now on IV steroids with acute COPD exacerbation). Hgb A1c pending Qualifiers: Diabetes mellitus complication status: without complication Diabetes mellitus intermission coordinator insulin use: without intermission coordinator use Qualified Code(s): E11.9 - Type 2 diabetes mellitus without complications (6) BPH (benign prostatic hyperplasia) Current visit: No Status: Chronic Per history, continue home medication regimen. Qualifiers: Prostatic enlargement morphology: unspecified morphology Lower urinary tract symptom presence: symptoms absent Qualified Code(s): N40.0 - Benign prostatic hyperplasia without lower urinary tract symptoms (7) DVT prophylaxis Current visit: No Status: Acute Internal Medicine - H&P: HPI Chief complaint: shortness of breath Admitted From: Home Plans for Post Hospital Care: Home History of present illness: Mr. Rahman is a 65 year old male CAD diabetes and BPH who presented to [facility] on 08/17/2016 with complaints of worsening shortness of breath. He was found to be an acute COPD exacerbation and was placed on BiPAP in the ED. He was admitted for further workup and treatment. Information obtained from chart review and patient report, patient was recently discharged one week ago and says he has been progressively short of breath since that time. Typically wears oxygen at night only but has been wearing a round-the- clock this past week shortness of breath worse with ambulation better with rest as dry non-productive cough at times. No CP, no ABD pain, no N/V/D Past Med Surg Social Fam HX - Past Medical History Medical history: COPD, coronary artery disease, diabetes, hyperlipidemia, hypertension, peripheral artery disease Psychiatric history: no psych history - Past Surgical History Surgical History: angioplasty/stent, sinus surgery - Social History Smoking Status: Former smoker Smokeless Tobacco Status: No Alcohol use: heavy Drug use: none - Family History Mother Hx Family Endocrine Disorder: Yes (diabeties) - Additional Family History Additional family history: reviewed and non-contributory Internal Medicine - H&P: Meds Albuterol Sulfate [Albuterol Inhaler] 2 puff IH Q4HR PRN 11/13/14 [History] Aspirin 81 mg PO DAILY 11/14/14 [History] Cholecalciferol (Vitamin D3) [Vitamin D3] 1,000 unit PO DAILY 11/14/14 [History] Clopidogrel [Plavix] 75 mg PO DAILY 11/14/14 [History] Ferrous Gluconate 324 mg PO DAILY 12/13/15 [History] Ipratropium [place] 1 spray NS DAILY 12/13/15 [History] Metformin HCl [Metformin HCl ER] 1,000 mg PO QPM 12/13/15 [History] Oxygen 3 l IH HS 12/13/15 [History] Ranitidine HCl [Heartburn Relief] 150 mg PO BID PRN 12/13/15 [History] Fluticasone Propionate [Flovent Hfa] 2 puff IH BID 08/08/16 [History] Ipratropium/Albuterol Neb [Duoneb] 3 ml IH Q6H PRN 08/08/16 [History] Atorvastatin [Lipitor] 40 mg PO HS #30 tablet 08/10/16 [Rx] Tamsulosin [Flomax] 0.4 mg PO DAILY #30 capsule 08/10/16 [Rx] predniSONE [PredniSONE] 10 mg PO TAPER #20 tablet 08/10/16 [Rx] Allergies No Known Allergies Allergy (Verified 07/08/16 16:02) All Systems PM: A 10-system review of systems was performed and is negative for pertinent findings except as documented above in the HPI. - Constitutional Constitutional: no chills, no fever(s), no night sweats - EENT Eyes: no change in vision, no discharge, no pain, no photophobia Ears: no ear discharge, no ear pain, no tinnitus Nose, mouth and throat: no dysphagia, no nasal discharge, no neck pain, no sore throat - Cardiovascular Cardiovascular ROS IM: no chest pain, no diaphoresis, no dyspnea, no lightheadedness, no palpitations, no syncope - Respiratory Respiratory: cough, dyspnea, dyspnea on exertion, no wheezing, no excessive phlegm production - Gastrointestinal Gastrointestinal: no abdominal pain, no diarrhea, no hematemesis, no hematochezia, no melena, no nausea, no vomiting - Musculoskeletal Musculoskeletal ROS IM: no numbness, no tingling - Integumentary Integumentary IM: no rash, no unusual bruising - Neurological Neurological ROS: no confusion, no convulsions, no focal weakness, no numbness, no tingling, no tremor(s) - Hematologic/Lymphatic Hematologic/Lymphatic: no easy bruising - Constitutional Vitals: Temp Pulse Resp BP Pulse Ox 98.1 F 113 29 124/82 93 08/17/16 16:28 08/17/16 16:28 08/17/16 16:31 08/17/16 16:31 08/17/16 16:42 General appearance: Present: mild distress, A&O X 3 - Head Head exam: Present: atraumatic, normocephalic - Eye Eye exam: Present: PERRL, conjuntiva pink, sclera anicteric Pupils: Present: PERRL - Neck Neck exam general surgery: Present: supple, trachea midline. Absent: lymphadenopathy - Respiratory Respiratory exam: Present: wheezes. Absent: accessory muscle use, rales, rhonchi Additional comments: Right lower lobe wheezing appears dyspneic on exam BiPAP on - Cardiovascular Cardiovascular exam: Present: RRR, +S1, +S2. Absent: diastolic murmur, gallop, rubs, systolic murmur - GI/Abdominal GI/Abdominal exam: Present: normal bowel sounds, soft, no peritoneal signs. Absent: distended, tenderness - Extremities Exam Extremities exam: Present: warm, radial pulses palpable and symetrical. Absent : calf tenderness, cyanotic, pedal edema - Neurological Exam Neurological exam: Present: CN II-XII intact, oriented X3, no focal deficits. Absent: pronater drift, facial droop, speech deficit - Skin Skin exam: Present: dry, intact Internal Med - H&P Results - Labs CBC & Chem 7: 08/17/16 13:31 08/17/16 12:50 <Abhay Olson H - Last Filed: 08/17/16 18:22> Date of Encounter: 08/17/16 Internal Medicine - H&P: HPI History of present illness: Mr. Rahman is a 65 year old male All Systems PM: A 10-system review of systems was performed and is negative for pertinent findings except as documented above in the HPI. - Constitutional Vitals: Temp Pulse Resp BP Pulse Ox 98.1 F 113 29 124/82 93 08/17/16 16:28 08/17/16 16:28 08/17/16 16:31 08/17/16 16:31 08/17/16 16:42 Internal Med - H&P Results - Labs CBC & Chem 7: 08/17/16 13:31 08/17/16 12:50 - Attending Attestation 1. Acute on chronic hypoxic respiratory failure secondary to combination of acute systolic CHF exacerbation and acute COPD exacerbation Continue IV Lasix and Solu-Medrol, start Rocephin 2. Elevated troponins likely secondary to demand ischemia, the patient had a cardiac catheterization recently and his troponins are trending down, consider cardiology consult if needed 3. Diabetes type 2 continue insulin sliding scale. Time spent on this admission 40 minutes I examined this patient and my medical decision-making was reviewed with the CREAM HAULER/PA/Advanced Practice Nurse/Resident Physician. I agree with the documented findings, disposition and treatment plan as described except to the extent set forth below.
[2016-08-17] MEDS ORDERED: Ipratropium/Albuterol Neb 3 ML IH PRN (17:50)
[2016-08-17] MEDS ORDERED: D5% in Water 1,000 ML IVC PRN (17:52)
[2016-08-17] MEDS ORDERED: Dextrose Gel 15 GM PO PRN ×2 (17:52)
[2016-08-17] MEDS ORDERED: *HR* Dextrose 50 % in Water (Syg) 50 ML SYRINGE IVP PRN (17:52)
[2016-08-17 18:50] LABS: Hemoglobin A1C 5.7 %
[2016-08-17] MEDS: Furosemide 20 MG/2 ML VIAL IVP SCH (20:18)
[2016-08-17] MEDS: Insulin LISPRO 300 UNITS/3 ML VIAL SQ SCH (20:36)
[2016-08-17] MEDS: *HR* Heparin 5,000 UNIT/ML VIAL SQ SCH (21:50)
[2016-08-17 22:35] LABS: Magnesium 1.8 mg/dL (1.6-2.6); Potassium 4.3 mEq/L (3.5-4.5)
[2016-08-17] MEDS: Ipratropium/Albuterol Neb 3 ML IH SCH ×2 (22:38)
[2016-08-17] MEDS: Beclomethasone 80mcg MDI IH SCH (22:39)
[2016-08-17] MEDS ORDERED: Magnesium Sulfate 1 GM in D5% in Water 100 ML IVPB ONE (22:42)
[2016-08-17] MEDS: MethylPREDNISolone 40 MG/ML VIAL IVP SCH (23:52)
[2016-08-18 04:44] LABS: Basophils % 0.1 %; Hemoglobin 9.8 g/dL (12.9-16.9); Immature Granulocytes % 1.1 % (0-4); Lymphocytes # 0.4 K/mcL (0.6-4.6); Lymphocytes % 4.1 %; Mean Corpuscular HGB Conc 31.6 g/dL (31.6-35.5); Mean Corpuscular Hemoglobin 28.5 pg (28.0-33.3); Mean Corpuscular Volume 90.1 fL (83.0-100.0); Mean Platelet Volume 9.5 fL (9.4-12.4); Monocytes # 0.2 K/mcL (0.0-1.3); Neutrophils # 9.2 K/mcL (1.6-8.9); Platelet Count 389 K/mcL (140-400); Red Blood Count 3.44 M/mcL (4.19-5.50); Red Cell Distribution Width 12.9 % (11.5-14.5); Segmented Neutrophils % 92.7 %
[2016-08-18] MEDS: Ipratropium/Albuterol Neb 3 ML IH SCH ×4 (04:44→21:39)
[2016-08-18 04:58] LABS: Alanine Aminotransferase 28 Units/L (0-55); Albumin 3.3 g/dL (3.5-5.0); Albumin/Globulin Ratio 1.2 (1.1-2.2); Alkaline Phosphatase 65 Units/L (38-126); Aspartate Amino Transferase 15 Units/L (5-34); BUN/Creatinine Ratio 23 (6-26); Bilirubin,Total 1.5 mg/dL (0.2-1.2); Blood Urea Nitrogen 22 mg/dL (8-26); Calcium 8.8 mg/dL (8.6-10.8); Carbon Dioxide 28 mEq/L (19-29); Chloride 98 mEq/L (98-109); Globulin 2.8 g/dL (2.4-3.5); Glucose 180 mg/dL (70-99); Osmolality,Calculated 292 (280-300); Potassium 3.8 mEq/L (3.5-4.5); Sodium 137 mEq/L (136-145); Total Protein 6.1 g/dL (6.0-8.3); eGFR For African Americans > 60 (> 60); eGFR For Non-African Americans > 60 (> 60)
[2016-08-18] MEDS: *HR* Heparin 5,000 UNIT/ML VIAL SQ SCH ×3 (05:17→20:40)
[2016-08-18] MEDS: MethylPREDNISolone 40 MG/ML VIAL IVP SCH (07:34)
[2016-08-18] MEDS: Furosemide 20 MG/2 ML VIAL IVP SCH ×2 (07:34→16:38)
[2016-08-18] MEDS: Cholecalciferol (D-3) 1,000 UNIT TABLET PO SCH (08:39)
[2016-08-18] MEDS: Aspirin 81 MG TAB.CHEW PO SCH (08:39)
[2016-08-18] MEDS: Insulin LISPRO 300 UNITS/3 ML VIAL SQ SCH ×4 (08:40→20:39)
[2016-08-18] MEDS ORDERED: Ipratropium 1 PUFF INHALER IH SCH (09:00)
[2016-08-18] MEDS: Beclomethasone 80mcg MDI IH SCH ×2 (10:27→21:39)
--- NOTE | 2016-08-18 12:41 | Internal Med Progress Note ---
Date of Encounter: 08/18/16 Time of Encounter: 10:00 - Assessment and plan (1) Acute and chronic respiratory failure Current Visit: Yes Status: Acute Assessment and plan: Due to combination of COPD and CHF exacerbation. Improving overall. Now back to baseline O2 supplementation. Qualifiers: Respiratory failure complication: hypoxia Qualified Code(s): J96.21 - Acute and chronic respiratory failure with hypoxia (2) Acute exacerbation of chronic obstructive airways disease Current Visit: Yes Status: Acute Assessment and plan: Still requiring scheduled bronchodilator nebs and having shortness of breath. Continue current management. High risk for complications. (3) Acute systolic (congestive) heart failure Current Visit: Yes Status: Acute Assessment and plan: Continue Lasix. Patient having good urine output. (4) CAD (coronary artery disease) Current Visit: No Status: Chronic Assessment and plan: Troponins trending down. 0.16 today. Continue aspirin, statin. Not on beta michelle due to severe COPD. Qualifiers: Coronary Disease-Associated Artery/Lesion type: [place] artery [place] vs. transplanted heart: [place] heart Associated angina: without angina Qualified Code(s): I25.10 - Atherosclerotic heart disease of [place] coronary artery without angina pectoris (5) DM2 (diabetes mellitus, type 2) Current Visit: No Status: Chronic Assessment and plan: On sliding scale insulin. Will continue to monitor blood sugars. So far they have been fairly controlled. Qualifiers: Diabetes mellitus complication status: without complication Diabetes mellitus mcfp insulin use: without mcfp use Qualified Code(s): E11.9 - Type 2 diabetes mellitus without complications (6) DVT prophylaxis Current Visit: No Status: Acute - Subjective Interval history: Patient continues to have shortness of breath although this is improved compared to yesterday. Denies any chest pain. No fever chills or night sweats. Has been off BiPAP since yesterday afternoon. - Constitutional Vitals: Temp Pulse Resp BP Pulse Ox 98.0 F 90 16 99/70 97 08/18/16 11:23 08/18/16 11:23 08/18/16 11:23 08/18/16 11:23 08/18/16 11:23 General appearance: Present: mild distress, A&O X 3, answers questions appropriately - Respiratory Respiratory exam: Present: accessory muscle use, prolonged expiratory phase, wheezes. Absent: rales, rhonchi - Cardiovascular Cardiovascular exam: Present: RRR, +S1, +S2. Absent: diastolic murmur, gallop, rubs, systolic murmur - Extremities Exam Extremities exam: Present: warm, radial pulses palpable and symetrical. Absent : calf tenderness, cyanotic, pedal edema - Neurological Exam Neurological exam: Present: alert, oriented X3, no focal deficits. Absent: facial droop, speech deficit - Skin Skin exam: Present: dry, intact Internal Medicine: Result - Labs CBC & Chem 7: 08/18/16 04:09 08/18/16 04:09 Labs: Short CBC 08/18/16 Range/Units 04:09 WBC 9.9 (4.3-11.1) K/mcL Hgb 9.8 L (12.9-16.9) g/dL Hct 31.0 L (37.5-50.1) % Plt Count 389 (140-400) K/mcL Neutrophils # 9.2 H (1.6-8.9) K/mcL BMP 08/17/16 08/18/16 20:14 04:09 Sodium 137 Potassium 4.3 3.8 Chloride 98 Carbon Dioxide 28 BUN 22 Creatinine 0.94 Glucose 180 H Calcium 8.8 Cardiac Enzymes 08/17/16 08/18/16 Range/Units 20:14 04:09 Troponin I 0.17 H* 0.16 H* (0-0.03) ng/mL Liver Function 08/18/16 Range/Units 04:09 Total Bilirubin 1.5 H (0.2-1.2) mg/dL AST 15 (5-34) Units/L ALT 28 (0-55) Units/L Alkaline Phosphatase 65 (38-126) Units/L Albumin 3.3 L (3.5-5.0) g/dL - ABG Interpretation ABG results: ABG ABG pH 7.39 pH Units (7.32-7.45) 08/17/16 13:10 ABG pCO2 47 mmHg (35-45) H 08/17/16 13:10 ABG pO2 227 mmHg (85-104) H 08/17/16 13:10 ABG O2 Saturation 100 % (95-98) H 08/17/16 13:10 PT/INR, D-dimer PT 11.9 Seconds (9.4-12.1) 08/17/16 12:50 - VTE Documentation of Mechanical Device: Intermittent pneumatic compression device Consult Discharge Plan - Plan Referrals: Saul Grayson MD [Primary Care Provider] - 08/24/16 2:00 pm - Attending Attestation This document has been at least partially created by [employer] recognition technology by Dr. Mcleod. Errors in grammar, wording or other phrases may exist. If errors are found after the documentation is signed, they will be addressed individually in the addendum section of this document when appropriate.
--- NOTE | 2016-08-18 16:17 | Electrocardiograph Report ---
[place] [id number] Test Date: 2016-08-17 Pat Name: Sravan Rahman Department: 105 Room: 2N12 Gender: M [employer]room Operator: : [id number] Requested By: Chris Saenz Order Number: [id number] Reading MD: Samantha Diaz Measurements Intervals [place] Rate: 117 P: IA: 0 QRS: -6 QRSD: 99 T: 159 QT: 311 QTc: 381 Interpretive Statements SINUS TACHYCARDIA WITH PVC ST DEVIATION AND MODERATE T-WAVE ABNORMALITY, CONSIDER LATERAL ISCHEMIA Electronically Signed On 08-18-2016 16:16:11 EDT by Samantha Diaz
--- NOTE | 2016-08-18 16:41 | Electrocardiograph Report ---
[address] [place], [place] [address] Test Date: 2016-08-17 Pat Name: Sravan Rahman Department: 110 Room: 2N12 Gender: M Phlebotomy Services Technician: ADINA : [id number] Requested By: Zuhair Enciso Order Number: [id number] Reading MD: Samantha Diaz Measurements Intervals [place] Rate: 89 P: 65 VT: 167 QRS: 57 QRSD: 110 T: 247 QT: 387 QTc: 434 Interpretive Statements SINUS RHYTHM WITH FREQUENT VENTRICULAR PREMATURE COMPLEXES POSSIBLE ANTERIOR MYOCARDIAL INFARCTION, OF INDETERMINATE AGE MODERATE T-WAVE ABNORMALITY, CONSIDER LATERAL ISCHEMIA Electronically Signed On 08-18-2016 16:39:49 EDT by Samantha Diaz
[2016-08-19] MEDS: Ipratropium/Albuterol Neb 3 ML IH SCH ×4 (04:25→22:29)
[2016-08-19 04:34] LABS: ABG HCO3 34.9 mEQ/L (21-27); ABG Oxygen Saturation 98 % (95-98); ABG PCO2 48 mmHg (35-45); ABG PH 7.47 pH Units (7.32-7.45); ABG PO2 104 mmHg (85-104); ABG TCO2 36.4 mEq/L (20-26)
[2016-08-19 04:35] LABS: Blood Gas FiO2 32 %; Blood Gas Liter Flow 3 L/MIN
[2016-08-19] MEDS: *HR* Heparin 5,000 UNIT/ML VIAL SQ SCH ×4 (05:24→20:32)
[2016-08-19] MEDS: Insulin LISPRO 300 UNITS/3 ML VIAL SQ SCH ×4 (08:09→23:29)
[2016-08-19] MEDS: Furosemide 20 MG/2 ML VIAL IVP SCH ×2 (08:11→15:59)
[2016-08-19] MEDS: predniSONE 20 MG TABLET PO SCH (08:11)
[2016-08-19] MEDS: Aspirin 81 MG TAB.CHEW PO SCH (08:15)
[2016-08-19] MEDS: Cholecalciferol (D-3) 1,000 UNIT TABLET PO SCH (08:15)
[2016-08-19] MEDS: Beclomethasone 80mcg MDI IH SCH ×2 (09:51→22:30)
--- NOTE | 2016-08-19 14:02 | Internal Med Progress Note ---
Date of Encounter: 08/19/16 Time of Encounter: 11:25 - Assessment and plan (1) Acute and chronic respiratory failure Current Visit: Yes Status: Acute Assessment and plan: Continue O2 supplementation. Continue bronchodilators. Patient would benefit from rehabilitation. grain farmworker and case management working on getting patient to skilled rehabilitation. Moderate risk for complications. Qualifiers: Respiratory failure complication: hypoxia Qualified Code(s): J96.21 - Acute and chronic respiratory failure with hypoxia (2) Acute exacerbation of chronic obstructive airways disease Current Visit: Yes Status: Acute Assessment and plan: Continue O2 supplementation, steroids and bronchodilators (3) Acute systolic (congestive) heart failure Current Visit: Yes Status: Acute Assessment and plan: On intravenous Lasix. Improving. Will transition to oral Lasix (4) CAD (coronary artery disease) Current Visit: No Status: Chronic Assessment and plan: On aspirin and statin Qualifiers: Coronary Disease-Associated Artery/Lesion type: [place] artery [place] vs. transplanted heart: [place] heart Associated angina: without angina Qualified Code(s): I25.10 - Atherosclerotic heart disease of [place] coronary artery without angina pectoris (5) DM2 (diabetes mellitus, type 2) Current Visit: No Status: Chronic Assessment and plan: Blood sugars slightly elevated. We will place patient on long-acting insulin. Qualifiers: Diabetes mellitus complication status: without complication Diabetes mellitus prison insulin use: without public works inspector use Qualified Code(s): E11.9 - Type 2 diabetes mellitus without complications (6) DVT prophylaxis Current Visit: No Status: Acute - Subjective Interval history: Patient continues to have some shortness of breath. Has not required noninvasive positive pressure ventilation. No chest pain. - Constitutional Vitals: Temp Pulse Resp BP Pulse Ox 98.2 F 109 28 109/75 97 08/19/16 12:17 08/19/16 12:17 08/19/16 12:17 08/19/16 12:17 08/19/16 12:17 General appearance: Present: mild distress, A&O X 3, answers questions appropriately - Respiratory Respiratory exam: Present: accessory muscle use, prolonged expiratory phase, rhonchi. Absent: rales, wheezes - GI/Abdominal GI/Abdominal exam: Present: normal bowel sounds, soft, no peritoneal signs. Absent: distended, tenderness - Extremities Exam Extremities exam: Present: warm, radial pulses palpable and symetrical. Absent : calf tenderness, cyanotic, pedal edema - Skin Skin exam: Present: dry, intact Internal Medicine: Result - Labs CBC & Chem 7: 08/18/16 04:09 08/18/16 04:09 - ABG Interpretation ABG results: ABG ABG pH 7.47 pH Units (7.32-7.45) H 08/19/16 04:23 ABG pCO2 48 mmHg (35-45) H 08/19/16 04:23 ABG pO2 104 mmHg (85-104) 08/19/16 04:23 ABG O2 Saturation 98 % (95-98) 08/19/16 04:23 PT/INR, D-dimer PT 11.9 Seconds (9.4-12.1) 08/17/16 12:50 - VTE Documentation of Mechanical Device: Intermittent pneumatic compression device Consult Discharge Plan - Plan Referrals: Saul Grayson MD [Primary Care Provider] - 08/24/16 2:00 pm - Attending Attestation This document has been at least partially created by [employer] recognition technology by Dr. Mcloed. Errors in grammar, wording or other phrases may exist. If errors are found after the documentation is signed, they will be addressed individually in the addendum section of this document when appropriate.
[2016-08-19] MEDS: Insulin DETEMIR 100 UNIT/ML X5UNITS SQ SCH (20:33)
[2016-08-20] MEDS: Ipratropium/Albuterol Neb 3 ML IH SCH ×4 (04:39→22:41)
[2016-08-20] MEDS: *HR* Heparin 5,000 UNIT/ML VIAL SQ SCH ×3 (04:55→20:56)
[2016-08-20] MEDS: Cholecalciferol (D-3) 1,000 UNIT TABLET PO SCH (08:51)
[2016-08-20] MEDS: predniSONE 20 MG TABLET PO SCH (08:51)
[2016-08-20] MEDS: Aspirin 81 MG TAB.CHEW PO SCH (08:51)
[2016-08-20] MEDS: Furosemide 20 MG/2 ML VIAL IVP SCH (08:52)
[2016-08-20] MEDS: Insulin LISPRO 300 UNITS/3 ML VIAL SQ SCH ×4 (08:52→22:21)
[2016-08-20] MEDS: Beclomethasone 80mcg MDI IH SCH ×2 (09:50→22:41)
--- NOTE | 2016-08-20 13:29 | Internal Med Progress Note ---
Date of Encounter: 08/20/16 Time of Encounter: 10:15 - Assessment and plan (1) Acute and chronic respiratory failure Current Visit: Yes Status: Acute Assessment and plan: Continue O2 supplementation. Continue treatment for underlying COPD and CHF. Qualifiers: Respiratory failure complication: hypoxia Qualified Code(s): J96.21 - Acute and chronic respiratory failure with hypoxia (2) Acute exacerbation of chronic obstructive airways disease Current Visit: Yes Status: Acute Assessment and plan: On prednisone, bronchodilator nebs (3) Acute systolic (congestive) heart failure Current Visit: Yes Status: Acute Assessment and plan: We will transition to oral Lasix as patient is clinically improving. (4) CAD (coronary artery disease) Current Visit: No Status: Chronic Assessment and plan: Continue aspirin, statin Qualifiers: Coronary Disease-Associated Artery/Lesion type: [place] artery [place] vs. transplanted heart: [place] heart Associated angina: without angina Qualified Code(s): I25.10 - Atherosclerotic heart disease of [place] coronary artery without angina pectoris (5) DM2 (diabetes mellitus, type 2) Current Visit: No Status: Chronic Assessment and plan: Blood sugars are better controlled. Continue current insulin regimen Qualifiers: Diabetes mellitus complication status: without complication Diabetes mellitus long term care social worker insulin use: without long term care social worker use Qualified Code(s): E11.9 - Type 2 diabetes mellitus without complications (6) DVT prophylaxis Current Visit: No Status: Acute - Subjective Interval history: Patient feels slightly better today. No chest pain. Tolerating nasal cannula well. Respiratory status is improving. - Constitutional Vitals: Temp Pulse Resp BP Pulse Ox 98.1 F 97 18 99/59 98 08/20/16 11:37 08/20/16 12:05 08/20/16 11:37 08/20/16 11:37 08/20/16 11:37 General appearance: Present: mild distress, A&O X 3, answers questions appropriately - Respiratory Respiratory exam: Present: accessory muscle use (Less accessory muscle use compared to yesterday), decreased breath sounds (Improved air entry bilaterally) , prolonged expiratory phase. Absent: rales, rhonchi, wheezes - Cardiovascular Cardiovascular exam: Present: RRR, +S1, +S2. Absent: diastolic murmur, gallop, rubs, systolic murmur - GI/Abdominal GI/Abdominal exam: Present: normal bowel sounds, soft, no peritoneal signs. Absent: distended, tenderness - Extremities Exam Extremities exam: Present: warm, radial pulses palpable and symetrical. Absent : calf tenderness, cyanotic, pedal edema Internal Medicine: Result - Labs CBC & Chem 7: 08/18/16 04:09 08/18/16 04:09 - ABG Interpretation ABG results: ABG ABG pH 7.47 pH Units (7.32-7.45) H 08/19/16 04:23 ABG pCO2 48 mmHg (35-45) H 08/19/16 04:23 ABG pO2 104 mmHg (85-104) 08/19/16 04:23 ABG O2 Saturation 98 % (95-98) 08/19/16 04:23 PT/INR, D-dimer PT 11.9 Seconds (9.4-12.1) 08/17/16 12:50 - VTE Documentation of Mechanical Device: Intermittent pneumatic compression device Consult Discharge Plan - Plan Referrals: Saul Grayson MD [Primary Care Provider] - 08/24/16 2:00 pm - Attending Attestation This document has been at least partially created by [employer] recognition technology by Dr. Mcleod. Errors in grammar, wording or other phrases may exist. If errors are found after the documentation is signed, they will be addressed individually in the addendum section of this document when appropriate.
[2016-08-20] MEDS: Furosemide 20 MG TABLET PO SCH (16:59)
[2016-08-20] MEDS: Insulin DETEMIR 100 UNIT/ML X5UNITS SQ SCH (20:56)
[2016-08-21] MEDS: Ipratropium/Albuterol Neb 3 ML IH SCH ×2 (03:55→10:36)
[2016-08-21] MEDS: *HR* Heparin 5,000 UNIT/ML VIAL SQ SCH (05:02)
[2016-08-21] MEDS: Furosemide 20 MG TABLET PO SCH (05:02)
[2016-08-21] MEDS: Aspirin 81 MG TAB.CHEW PO SCH (08:19)
[2016-08-21] MEDS: Insulin LISPRO 300 UNITS/3 ML VIAL SQ SCH (08:19)
[2016-08-21] MEDS: Cholecalciferol (D-3) 1,000 UNIT TABLET PO SCH (08:19)
[2016-08-21] MEDS: predniSONE 20 MG TABLET PO SCH (08:20)
[2016-08-21 08:26] VITALS: BP 95/59
--- NOTE | 2016-08-21 10:06 | Discharge Summary ---
Date of Encounter: 08/21/16 Time of Encounter: 10:04 - Discharge Diagnosis (1) Acute and chronic respiratory failure Priority: Primary Status: Acute Qualifiers: Respiratory failure complication: hypoxia Qualified Code(s): J96.21 - Acute and chronic respiratory failure with hypoxia (2) Acute exacerbation of chronic obstructive airways disease Priority: Secondary Status: Acute (3) Acute systolic (congestive) heart failure Priority: Secondary Status: Acute (4) CAD (coronary artery disease) Priority: Secondary Status: Chronic Qualifiers: Coronary Disease-Associated Artery/Lesion type: [place] artery [place] vs. transplanted heart: [place] heart Associated angina: without angina Qualified Code(s): I25.10 - Atherosclerotic heart disease of [place] coronary artery without angina pectoris (5) DM2 (diabetes mellitus, type 2) Priority: Secondary Status: Chronic Qualifiers: Diabetes mellitus complication status: without complication Diabetes mellitus residential insulin use: without residential use Qualified Code(s): E11.9 - Type 2 diabetes mellitus without complications (6) DVT prophylaxis Priority: Secondary Status: Acute - Discharge Medications Prescriptions: Furosemide [Lasix] 20 mg PO Q12HR #60 tablet predniSONE [PredniSONE] 10 mg PO TAPER 9 Days Home Medications: Albuterol Sulfate [Albuterol Inhaler] 2 puff IH Q4HR PRN 11/13/14 [History] Aspirin 81 mg PO DAILY 11/14/14 [History] Cholecalciferol (Vitamin D3) [Vitamin D3] 1,000 unit PO DAILY 11/14/14 [History] Clopidogrel [Plavix] 75 mg PO DAILY 11/14/14 [History] Ferrous Gluconate 324 mg PO DAILY 12/13/15 [History] Ipratropium [place] 1 spray NS DAILY 12/13/15 [History] Metformin HCl [Metformin HCl ER] 1,000 mg PO QPM 12/13/15 [History] Oxygen 3 l IH HS 12/13/15 [History] Ranitidine HCl [Heartburn Relief] 150 mg PO BID PRN 12/13/15 [History] Fluticasone Propionate [Flovent Hfa] 2 puff IH BID 08/08/16 [History] Ipratropium/Albuterol Neb [Duoneb] 3 ml IH Q6H PRN 08/08/16 [History] Atorvastatin [Lipitor] 40 mg PO HS #30 tablet 08/10/16 [Rx] Tamsulosin [Flomax] 0.4 mg PO DAILY #30 capsule 08/10/16 [Rx] Furosemide [Lasix] 20 mg PO Q12HR #60 tablet 08/21/16 [Rx] predniSONE [PredniSONE] 10 mg PO TAPER 9 Days 08/21/16 [Rx] Allergies/Adverse Reactions: Allergies No Known Allergies Allergy (Verified 07/08/16 16:02) Date of admission: 08/17/16 15:36 Primary care physician: Saul Grayson MD Consults: 08/17/16 17:09 Consult to Nutrition [CONS] Routine Comment: Consulting Provider: NUTRITION Reason for Dietary Consult: MST Score 08/18/16 09:22 Consult to Freight Agent [CONS] Routine Reason for SW Consult: Discharge planning 08/18/16 14:12 Consult to Respiratory Therapy [CONS] Routine Reason for Consult: Overnight pulse ox for bipap qualification. Call Completed: Yes Discharging clinician: Kaylyn Mcleod Anticipated date of discharge: 08/21/16 - Patient Status Disposition: Home, Self-Care Condition: Good Functional capacity at discharge: independent ambulation Overall status at discharge: patient is progressing back to baseline - Discharge Instructions Instructions: Heart Failure (DC), Peripheral Vascular Disorders (DC), Chronic Obstructive Pulmonary Disease (DC) Follow Up With: Saul Grayson MD [Primary Care Provider] - 08/24/16 2:00 pm (SENT WEB REQUEST TO CANCEL THIS APPOINTMENT) Sesar Antonio CNP [Advanced Practice Nurse] - (office will call patient at home with an appointment they make their own) Forms: ED Satisfaction Letter Additional Instructions: Follow-up with cardiology in 1-2 weeks for cardiomyopathy and heart failure - Diet and Activity Activity: increase activity as tolerated, resume usual activities as tolerated, wear oxygen at night Diet: diabetic diet, low fat, low cholesterol, low salt diet Hospital course: Mr. Rahman is a 65 year old male patient with a history of cardiomyopathy with EF of 25%, COPD on chronic O2 supplementation, diabetes mellitus type 2 who was admitted here with worsening respiratory failure. He was diagnosed with acute on chronic hypoxic respiratory failure related to COPD and CHF. He was treated for this with bronchodilators, IV steroids and IV Lasix. His symptoms have slowly been improving. He is feeling much better today. He is now on oral Lasix and oral steroids. He is receiving nebulizers with bronchodilators but is no longer using accessory respiratory muscles. Initially will be discussed with the patient about getting to a short-term rehabilitation to get stronger but he has improved much better than expected and is able to ambulate well on his own without any respiratory distress. As such he will be discharged home. He will follow up with his primary care provider and cardiology for further management of his chronic medical conditions. He will be discharged on Lasix 20 mg twice daily. He is not being discharged on an VANIA inhibitor due to his low blood pressure and he is not being discharged on beta michelle due to his severe COPD and low blood pressure. Did not qualify for home BiPAP. - Time Spent with Patient Total time spent providing and/or coordinating discharge services: Greater than 30 minutes (40 min) - Constitutional Vitals: Temp Pulse Resp BP Pulse Ox 98.1 F 84 14 95/59 96 08/21/16 07:31 08/21/16 08:25 08/21/16 07:31 08/21/16 08:25 08/21/16 07:31 General appearance: Present: A&O X 3, pleasant, no acute distress, answers questions appropriately - Neck Neck exam general surgery: Present: supple, trachea midline. Absent: lymphadenopathy - Respiratory Respiratory exam: Present: prolonged expiratory phase. Absent: accessory muscle use, rales, rhonchi, wheezes - Extremities Exam Extremities exam: Present: warm, radial pulses palpable and symetrical. Absent : calf tenderness, cyanotic, pedal edema - Neurological Exam Neurological exam: Present: alert, CN II-XII intact, oriented X3, no focal deficits. Absent: facial droop, speech deficit - Skin Skin exam: Present: dry, intact - VTE Documentation of Mechanical Device: Intermittent pneumatic compression device - Attending Attestation This document has been at least partially created by [employer] recognition technology by Dr. Mcleod. Errors in grammar, wording or other phrases may exist. If errors are found after the documentation is signed, they will be addressed individually in the addendum section of this document when appropriate.
[2016-08-21] MEDS: Beclomethasone 80mcg MDI IH SCH (10:36)
== END 2016-08-21 11:27 | disposition home or self-care (01) | DRG 291 ==
LOC: EMEROO 12:48 → 2NNU 12:48
PROVIDERS: ADMIT Internal Medicine; ATTEND Internal Medicine

== ENCOUNTER 2016-09-05 01:46 | Inpatient (IN) ==
[2016-09-05] MEDS ORDERED: Ipratropium/Albuterol Neb 3 ML IH ONE ×2 (02:00→06:03)
[2016-09-05] MEDS ORDERED: methylPREDNISolone 125 MG/2 ML VIAL IVP ONE (02:03)
[2016-09-05 02:09] LABS: Basophils % 0.2 %; Eosinophils # 0.2 K/mcL (0.0-0.6); Eosinophils % 2.4 %; Hematocrit 32.6 % (37.5-50.1); Hemoglobin 10.2 g/dL (12.9-16.9); Immature Granulocytes % 0.4 % (0-4); Mean Corpuscular HGB Conc 31.3 g/dL (31.6-35.5); Mean Corpuscular Hemoglobin 27.5 pg (28.0-33.3); Mean Corpuscular Volume 87.9 fL (83.0-100.0); Mean Platelet Volume 9.4 fL (9.4-12.4); Monocytes # 0.7 K/mcL (0.0-1.3); Monocytes % 7.1 %; Neutrophils # 7.5 K/mcL (1.6-8.9); Platelet Count 244 K/mcL (140-400); Red Blood Count 3.71 M/mcL (4.19-5.50); Red Cell Distribution Width 13.5 % (11.5-14.5); Segmented Neutrophils % 78.9 %
[2016-09-05] MEDS ORDERED: *HR* LORazepam 2 MG/ML VIAL IVP ONE (02:27)
--- NOTE | 2016-09-05 02:38 | Emergency Department Note ---
Disposition Clinical Impression: Elevated troponin, COPD exacerbation Dyspnea Qualifiers: Dyspnea type: unspecified Qualified Code(s): R06.00 - Dyspnea, unspecified Disposition: Admitted As Inpatient Condition: Good Referrals: NO,PCP [Non-Partnered Physician] - Forms: ED Satisfaction Letter General Adult HPI - General Chief complaint: ED Shortness of Breath/Dyspnea Stated complaint: SOB Time Seen by Provider: 09/05/16 02:02 Source: patient, EMS Limitations: no limitations Nursing Notes Reviewed: Yes Vital Signs Reviewed: Yes - History of Present Illness HPI Narrative: 65-year-old male who reports he had sudden onset of dyspnea starting at 7 PM. He reports he was sitting in a chair when it started. He states that he has had multiple admissions for the exact same symptoms over the last few months. He said last time that he was here he said he had some heart trouble and had a stent never had any chest pain. He denies having chest pain this time. He says he feels short of breath. Denies a cough. Denies lower extremity edema. States he still eating and drinking without difficulty. No abdominal pain or difficulty with urination or bowel movements. Denies having a fever. Past medical history of COPD, CAD, diabetes. He takes aspirin, Plavix, metformin, statin, Lasix. Reports that he did a breathing treatment at home without effect. Pain Scale: 0 Consistency: constant Improves with: nothing Worsens with: nothing Associated symptoms: Reports: denies other symptoms Treatments Prior to Arrival: none - Related Data Home Medications Medication Instructions Recorded Confirmed Albuterol Sulfate [Albuterol 2 puff IH Q4HR PRN 11/13/14 08/17/16 Inhaler] Aspirin 81 mg PO DAILY 11/14/14 08/17/16 Cholecalciferol (Vitamin D3) 1,000 unit PO DAILY 11/14/14 08/17/16 [Vitamin D3] Clopidogrel [Plavix] 75 mg PO DAILY 11/14/14 08/17/16 Ferrous Gluconate 324 mg PO DAILY 12/13/15 08/17/16 Ipratropium [place] 1 spray NS DAILY 12/13/15 08/17/16 Metformin HCl [Metformin HCl ER] 1,000 mg PO QPM 12/13/15 08/17/16 Oxygen 3 l IH HS 12/13/15 08/17/16 Ranitidine HCl [Heartburn Relief] 150 mg PO BID PRN 12/13/15 08/17/16 Fluticasone Propionate [Flovent 2 puff IH BID 08/08/16 08/17/16 Hfa] Ipratropium/Albuterol Neb [Duoneb] 3 ml IH Q6H PRN 08/08/16 08/17/16 Previous Rx's Medication Instructions Recorded Atorvastatin [Lipitor] 40 mg PO HS #30 tablet 08/10/16 Tamsulosin [Flomax] 0.4 mg PO DAILY #30 capsule 08/10/16 Furosemide [Lasix] 20 mg PO Q12HR #60 tablet 08/21/16 predniSONE [PredniSONE] 10 mg PO TAPER 9 Days 08/21/16 Allergies Allergy/AdvReac Type Severity Reaction Status Date / Time No Known Allergies Allergy Verified 09/05/16 02:00 All systems ED: reviewed and negative except as stated. Constitutional: Denies: fever Eyes: Denies: vision change ENT ED: Denies: throat pain Cardiovascular: Denies: chest pain Respiratory: Reports: dyspnea. Denies: cough Gastrointestinal: Denies: abdominal pain, nausea, vomiting Musculoskeletal: Denies: back pain Integumentary: Denies: rash Psychiatric: Reports: anxiety Past Medical History - Past Medical History Medical history: Reports: COPD, coronary artery disease, diabetes, hyperlipidemia, hypertension, peripheral artery disease Surgical history: Reports: angioplasty/stent, sinus surgery Psychiatric history: Reports: no psych history - Social History Smoking Status: Former smoker Smokeless Tobacco Status: No Alcohol use: Reports: heavy Drug use: Reports: none Physical Exam - General Limitations: no limitations General appearance: alert - Head Head exam: atraumatic - Eye Eye exam: Present: normal appearance, PERRL - ENT ENT exam: normal exam, normal oropharynx - Neck Neck exam: Present: normal inspection - Chest Chest inspection: Present: normal inspection - Respiratory Respiratory exam: Present: other (diminished breath sounds, minimal wheezing.) - Cardiovascular Cardiovascular exam: Present: normal rhythm, tachycardia - Abdominal Exam Abdominal exam: Present: soft, Non-Tender - Extremities Exam Extremities exam: Present: normal inspection. Absent: pedal edema - Back Exam Back exam: Present: normal inspection - Neurological Exam Neurological exam: Present: alert, oriented X3 - Skin Skin exam: Present: warm, dry Course Course Narrative: He is taking deep breaths but does have diminished air movement minimal wheezes. His SPO2 is in the 90s on 2 L nasal cannula. He wears 3 L at all times at home. He had a recent admission where he received a stent in the left circumflex. Troponin is elevated today at 0.17. We will give him aspirin. There is some ST depression in the lateral leads which is present on prior EKGs. He has sinus tachycardia. Vitals are otherwise stable. BNP has decreased from his last admission and he has no lower extremity edema and no pulmonary edema on chest x-ray. Troponin is about the same as it was when he was discharged. D- dimer of 583 is negative considering his age of 65. Positive value at his age would be 650 or above. It is unclear whether his troponin is increasing, decreasing her stay in the same. This in combination with a EKG with some lateral depression and this is similar symptom he had at his last ND we will go ahead and admit him. He has received aspirin. Accepted by Dr Samayoa Vital Signs Temperature 98 F 09/05/16 01:50 Pulse Rate 122 09/05/16 01:50 Respiratory Rate 26 09/05/16 01:50 Blood Pressure 115/83 09/05/16 01:50 O2 Sat by Pulse Oximetry 98 09/05/16 01:50 Temperature 98 F 09/05/16 01:50 Pulse Rate 122 09/05/16 01:50 Respiratory Rate 25 09/05/16 02:04 Blood Pressure 115/83 09/05/16 02:04 O2 Sat by Pulse Oximetry 98 09/05/16 02:04 Oxygen Delivery Oxygen Delivery Nasal Cannula Medical Decision Making - Medical Records Medical records reviewed: Yes I reviewed the patient's medical records. - Lab Data Lab results reviewed: Yes I reviewed the patient's lab results. Result diagrams: 09/05/16 02:00 09/05/16 02:35 Lab Results 09/05/16 09/05/16 09/05/16 Range/Units 02:00 02:00 02:00 WBC 9.5 (4.3-11.1) K/mcL RBC 3.71 L (4.19-5.50) M/mcL Hgb 10.2 L (12.9-16.9) g/dL Hct 32.6 L (37.5-50.1) % MCV 87.9 (83.0-100.0) fL MCH 27.5 L (28.0-33.3) pg MCHC 31.3 L (31.6-35.5) g/dL RDW 13.5 (11.5-14.5) % Plt Count 244 (140-400) K/mcL MPV 9.4 (9.4-12.4) fL Immature Gran % 0.4 (0-4) % Seg Neutrophils % 78.9 % Lymphocytes % 11.0 % Monocytes % 7.1 % Eosinophils % 2.4 % Basophils % 0.2 % Neutrophils # 7.5 (1.6-8.9) K/mcL Lymphocytes # 1.0 (0.6-4.6) K/mcL Monocytes # 0.7 (0.0-1.3) K/mcL Eosinophils # 0.2 (0.0-0.6) K/mcL Basophils # 0.0 (0.0-0.2) K/mcL D-Dimer 583 H (0-500) ng/mLFEU VBG pH (7.32-7.42) pH Units VBG pCO2 (41-51) mmHg VBG pO2 (25-40) mmHg VBG HCO3 (21-27) mEq/L Sodium (136-145) mEq/L Potassium (3.5-4.5) mEq/L Chloride (98-109) mEq/L Carbon Dioxide (19-29) mEq/L BUN (8-26) mg/dL Creatinine (0.72-1.25) mg/dL Est GFR ( Amer) (> 60) Est GFR (Non-Af Amer) (> 60) BUN/Creatinine Ratio (6-26) Glucose (70-99) mg/dL Calculated Osmolality (280-300) Calcium (8.6-10.8) mg/dL Troponin I 0.12 H* (0-0.03) ng/mL B-Natriuretic Peptide (0-100) pg/mL 09/05/16 09/05/16 09/05/16 Range/Units 02:00 02:35 02:35 WBC (4.3-11.1) K/mcL RBC (4.19-5.50) M/mcL Hgb (12.9-16.9) g/dL Hct (37.5-50.1) % MCV (83.0-100.0) fL MCH (28.0-33.3) pg MCHC (31.6-35.5) g/dL RDW (11.5-14.5) % Plt Count (140-400) K/mcL MPV (9.4-12.4) fL Immature Gran % (0-4) % Seg Neutrophils % % Lymphocytes % % Monocytes % % Eosinophils % % Basophils % % Neutrophils # (1.6-8.9) K/mcL Lymphocytes # (0.6-4.6) K/mcL Monocytes # (0.0-1.3) K/mcL Eosinophils # (0.0-0.6) K/mcL Basophils # (0.0-0.2) K/mcL D-Dimer (0-500) ng/mLFEU VBG pH 7.43 H (7.32-7.42) pH Units VBG pCO2 50 (41-51) mmHg VBG pO2 94 H (25-40) mmHg VBG HCO3 33.2 H (21-27) mEq/L Sodium 137 (136-145) mEq/L Potassium 4.4 (3.5-4.5) mEq/L Chloride 99 (98-109) mEq/L Carbon Dioxide 25 (19-29) mEq/L BUN 14 (8-26) mg/dL Creatinine 0.96 (0.72-1.25) mg/dL Est GFR ( Amer) > 60 (> 60) Est GFR (Non-Af Amer) > 60 (> 60) BUN/Creatinine Ratio 15 (6-26) Glucose 141 H (70-99) mg/dL Calculated Osmolality 287 (280-300) Calcium 9.6 (8.6-10.8) mg/dL Troponin I (0-0.03) ng/mL B-Natriuretic Peptide 1095 H (0-100) pg/mL - Radiology Data Radiology results reviewed: Yes I reviewed the patient's radiology results. - EKG Data EKG #1 EKG attestation: Yes I reviewed and interpreted this EKG. EKG shows normal: sinus rhythm Rate: tachycardia Rhythm: NSR ST segment depression in: v4, v5, v6 Interpretation: unchanged when compared to prior tracing (date) Attestation Statement - Attestation Attestation: I, Marvel Lane MD, personally evaluated this patient and discussed their management with the resident physician. I reviewed the resident's note and agree with the documented findings, medical decision making, and plan of care. 65-year-old male presents to the emergency department by ambulance with a complaint of an acutely increased shortness of breath since earlier this evening. Some increased cough. No fever. No chest pain. Patient is on home oxygen. He took nebulizer treatments at home with no improvement. History of similar episode recently and patient was admitted to the hospital and ended up having a cardiac catheter with stent. On examination patient is a well-developed thin elderly male in no acute distress. He does appear to be hyperventilating. He is alert and oriented 3. There is no cyanosis or diaphoresis. Chest is nontender to palpation. Breath sounds are decreased bilaterally but no rales or wheezes are noted. Heart regular rate and rhythm with a 2/6 systolic murmur. Abdomen is soft and nontender with normal bowel sounds. No pedal edema noted. Chest x-ray shows no change from prior x-ray. EKG shows a sinus tachycardia with some lateral ST segment depression in V4 through 6. Labs reviewed. Troponin 0.12. The hospitalist, Dr. Samayoa, was consulted and accepted the admission of the patient.
[2016-09-05 02:39] LABS: VBG HCO3 33.2 mEq/L (21-27); VBG PH 7.43 pH Units (7.32-7.42)
[2016-09-05] MEDS ORDERED: Aspirin 325 MG TABLET PO ONE (02:55)
[2016-09-05 02:56] LABS: BUN/Creatinine Ratio 15 (6-26); Blood Urea Nitrogen 14 mg/dL (8-26); Calcium 9.6 mg/dL (8.6-10.8); Carbon Dioxide 25 mEq/L (19-29); Chloride 99 mEq/L (98-109); Glucose 141 mg/dL (70-99); Osmolality,Calculated 287 (280-300); Potassium 4.4 mEq/L (3.5-4.5); Sodium 137 mEq/L (136-145); eGFR For African Americans > 60 (> 60); eGFR For Non-African Americans > 60 (> 60)
[2016-09-05] MEDS ORDERED: Nitroglycerin 0.4 MG TAB.SUBL SL PRN (05:05)
[2016-09-05] MEDS ORDERED: Famotidine 20 MG TABLET PO PRN (05:06)
[2016-09-05] MEDS ORDERED: *HR* Morphine 2 MG/ML SYRINGE IVP PRN (05:08)
[2016-09-05] MEDS ORDERED: Ondansetron 4 MG/2 ML VIAL IVP PRN (05:08)
[2016-09-05] MEDS ORDERED: Dextrose Gel 15 GM PO PRN ×2 (05:08)
[2016-09-05] MEDS ORDERED: Acetaminophen 325 MG TABLET PO PRN (05:08)
[2016-09-05] MEDS ORDERED: *HR* Dextrose 50 % in Water (Syg) 50 ML SYRINGE IVP PRN (05:08)
[2016-09-05] MEDS ORDERED: Naloxone 0.4 MG/ML INJ IVP PRN (05:08)
[2016-09-05] MEDS ORDERED: D5% in Water 1,000 ML IVC PRN (05:08)
--- NOTE | 2016-09-05 05:14 | Internal Med History&Physical ---
Date of Encounter: 09/05/16 Time of Encounter: 05:11 Assessment and Plan (1) Acute and chronic respiratory failure Current visit: No Status: Acute Acute and chronic respiratory failure secondary to acute COPD exacerbation from acute bacterial bronchitis *Rocephin, continue Solu-Medrol, DuoNeb nebs, oxygen therapy Omeprazole for GI prophylaxis and subcutaneous heparin for DVT prophylaxis. The patient will be admitted as inpatient, expected stay more than 2 midnights. DNR CC arrest DNI. Time spent on this admission 40 minutes Qualifiers: Respiratory failure complication: hypoxia Qualified Code(s): J96.21 - Acute and chronic respiratory failure with hypoxia (2) Acute exacerbation of chronic obstructive airways disease Current visit: No Status: Acute (3) Cardiomyopathy Current visit: No Status: Acute Qualifiers: Cardiomyopathy type: ischemic Qualified Code(s): I25.5 - Ischemic cardiomyopathy (4) Elevated troponin Current visit: No Status: Acute Likely secondary to demand ischemia Monitor troponins, maintain telemetry next Continue aspirin and Plavix (5) BPH (benign prostatic hyperplasia) Current visit: No Status: Chronic Qualifiers: Prostatic enlargement morphology: unspecified morphology Lower urinary tract symptom presence: symptoms absent Qualified Code(s): N40.0 - Benign prostatic hyperplasia without lower urinary tract symptoms (6) CAD (coronary artery disease) Current visit: No Status: Chronic Continue metoprolol Qualifiers: Coronary Disease-Associated Artery/Lesion type: [place] artery [place] vs. transplanted heart: [place] heart Associated angina: without angina Qualified Code(s): I25.10 - Atherosclerotic heart disease of [place] coronary artery without angina pectoris (7) DM2 (diabetes mellitus, type 2) Current visit: No Status: Chronic Hold metformin, use insulin sliding scale Qualifiers: Diabetes mellitus complication status: without complication Diabetes mellitus long-term insulin use: without long-term use Qualified Code(s): E11.9 - Type 2 diabetes mellitus without complications (8) PVD (peripheral vascular disease) Current visit: No Status: Chronic Internal Medicine - H&P: HPI Chief complaint: Shortness of breath Admitted From: Emergency Dept History of present illness: Mr. Rahman is a 65 year old male with a past medical history of end-stage COPD oxygen dependent using 3 L continuously at home, systolic CHF with an ejection fraction of 25%, CAD status post stents recently discharged from the hospital on August 21 where he was evaluated for COPD exacerbation. Patient says that he completed his prednisone last week and earlier last night at 7 PM he started having severe difficulty breathing while trying to push furniture at home. She complained of pleuritic type of pain on the left side of his chest and has been coughing constantly. The patient had a productive cough bringing up minimal yellowish phlegm. His BNP today is 1095 but it has improved from the last measurement which was 1707. His troponin was 0.12 which is lower than the prior measurement which was 0.16. Heart rate was 122 EKG shows sinus tachycardia chest x-ray is unremarkable with no acute current pulmonary findings. Received Solu-Medrol at the emergency room. He is a still in respiratory distress, denies any other complaint other than weakness and shortness of breath at the moment. Past Med Surg Social Fam HX - Past Medical History Medical history: COPD (Oxygen dependent using 3 L continuously), coronary artery disease (Status post stents), diabetes (Not insulin-dependent), hyperlipidemia, hypertension, other (Systolic CHF with ejection fraction of 25% , peripheral artery disease, BPH, mild aortic stenosis) Psychiatric history: no psych history - Past Surgical History Surgical History: angioplasty/stent, sinus surgery, other - Social History Smoking Status: Former smoker Packs per day: Quit smoking 3 months ago used to smoke up to 2 packs per day for 55 years Smokeless Tobacco Status: No Alcohol use: occasionally, heavy Drug use: none - Family History Mother Hx Family Endocrine Disorder: Yes (diabeties) - Additional Family History Additional family history: Mother with diabetes Internal Medicine - H&P: Meds Albuterol Sulfate [Albuterol Inhaler] 2 puff IH Q4HR PRN 11/13/14 [History] Aspirin 81 mg PO DAILY 11/14/14 [History] Cholecalciferol (Vitamin D3) [Vitamin D3] 1,000 unit PO DAILY 11/14/14 [History] Clopidogrel [Plavix] 75 mg PO DAILY 11/14/14 [History] Ferrous Gluconate 324 mg PO DAILY 12/13/15 [History] Ipratropium [place] 1 spray NS DAILY 12/13/15 [History] Metformin HCl [Metformin HCl ER] 1,000 mg PO QPM 12/13/15 [History] Oxygen 3 l IH HS 12/13/15 [History] Ranitidine HCl [Heartburn Relief] 150 mg PO BID PRN 12/13/15 [History] Fluticasone Propionate [Flovent Hfa] 2 puff IH BID 08/08/16 [History] Ipratropium/Albuterol Neb [Duoneb] 3 ml IH Q6H PRN 08/08/16 [History] Atorvastatin [Lipitor] 40 mg PO HS #30 tablet 08/10/16 [Rx] Tamsulosin [Flomax] 0.4 mg PO DAILY #30 capsule 08/10/16 [Rx] Furosemide [Lasix] 20 mg PO Q12HR #60 tablet 08/21/16 [Rx] predniSONE [PredniSONE] 10 mg PO TAPER 9 Days 08/21/16 [Rx] Allergies No Known Allergies Allergy (Verified 09/05/16 02:00) All Systems PM: A 10-system review of systems was performed and is negative for pertinent findings except as documented above in the HPI. Review of systems: No chest pain except for pleuritic pain at times, other systems out of the 10 reviewed were negative - Constitutional Vitals: Temp Pulse Resp BP Pulse Ox 98 F 106 22 115/82 96 09/05/16 04:07 09/05/16 03:39 09/05/16 04:07 09/05/16 04:07 09/05/16 03:39 General appearance: Present: cachectic, A&O X 3 - Head Head exam: Present: atraumatic, normocephalic - Eye Eye exam: Present: PERRL, conjuntiva pink, sclera anicteric Pupils: Present: PERRL - Neck Neck exam general surgery: Present: supple, trachea midline. Absent: lymphadenopathy - Respiratory Respiratory exam: Present: decreased breath sounds (Very diminished breath sounds with minimal wheezing), CTAB. Absent: accessory muscle use, rales, rhonchi, wheezes - Cardiovascular Cardiovascular exam: Present: RRR, +S1, +S2, systolic murmur (2 out of 6 radiating to the aortic area). Absent: diastolic murmur, gallop, rubs - GI/Abdominal GI/Abdominal exam: Present: normal bowel sounds, soft, no peritoneal signs. Absent: distended, tenderness - Extremities Exam Extremities exam: Present: warm, radial pulses palpable and symetrical. Absent : calf tenderness, cyanotic, pedal edema - Neurological Exam Neurological exam: Present: CN II-XII intact, oriented X3, no focal deficits. Absent: pronater drift, facial droop, speech deficit - Skin Skin exam: Present: dry, intact Internal Med - H&P Results - Labs CBC & Chem 7: 09/05/16 02:00 09/05/16 02:35
[2016-09-05] MEDS: Furosemide 20 MG TABLET PO SCH ×2 (05:53→17:16)
[2016-09-05] MEDS: *HR* Heparin 5,000 UNIT/ML VIAL SQ SCH ×3 (05:53→20:17)
[2016-09-05] MEDS: Aspirin 81 MG TAB.CHEW PO SCH (07:50)
[2016-09-05] MEDS: Insulin LISPRO 300 UNITS/3 ML VIAL SQ SCH ×4 (07:50→20:15)
[2016-09-05] MEDS: MethylPREDNISolone 40 MG/ML VIAL IVP SCH ×3 (07:50→22:52)
[2016-09-05] MEDS: Ipratropium/Albuterol Neb 3 ML IH SCH ×3 (10:44→22:35)
--- NOTE | 2016-09-05 11:34 | Electrocardiograph Report ---
[place] [id number] Test Date: 2016-09-05 Pat Name: Sravan Rahman Department: 104 Room: 3B39 Gender: M Medical Asst: : 1950 Requested By: Ramon Estes Order Number: [id number] Reading MD: Samantha Diaz Measurements Intervals [place] Rate: 108 P: 70 [place]: 151 QRS: 67 QRSD: 100 T: 261 QT: 330 QTc: 393 Interpretive Statements SINUS TACHYCARDIA LEFT VENTRICULAR HYPERTROPHY AND ST-T CHANGE Electronically Signed On 09-05-2016 11:32:56 EDT by Samantha Diaz
--- NOTE | 2016-09-05 13:37 | Palliative - Consult Note ---
Date of Encounter: 09/05/16 Time of Encounter: 13:10 - Assessment and Plan (1) Chest pain Current Visit: Yes Status: Acute Assessment and plan: assaociated with sob we see the history of present illness, cardiology and hospitalist team. Cardiology has been consulted. The patient does have severe coronary artery disease with a 20% ejection fraction based on cardiac catheterization up proximally a month ago. Qualifiers: Chest pain type: chest pain on breathing Qualified Code(s): R07.1 - Chest pain on breathing (2) COPD exacerbation Current Visit: No Status: Ruled-out Assessment and plan: Patient with end-stage lung disease, treated with oxygen and steroids dilators and antibiotics. Per hospitalist team. (3) CAD (coronary artery disease) Current Visit: No Status: Chronic Assessment and plan: She appears to be [place] [employer] for chest if our fear with a 20% ejection fraction established on catheterization last month. Cardiology has been consulted. For further treatment per cardiology. It appeared that they have recommended medical management in the past. He is also interested in what options there might be an [place] or at [facility]. Qualifiers: Coronary Disease-Associated Artery/Lesion type: [place] artery [place] vs. transplanted heart: [place] heart Associated angina: without angina Qualified Code(s): I25.10 - Atherosclerotic heart disease of [place] coronary artery without angina pectoris (4) Goals of care, counseling/discussion Current Visit: Yes Status: Acute Assessment and plan: The patient has already opted for DNR CCA DNI, will put a state form on the chart as well. His goals are to find out what his options are and then consider. He would like aggressive care if this is available. He understands that he is eligible for hospice if the aggressive care is no longer available or does not work. Palliative-CN HPI - Data of Consult Patient: new to practice Requesting Physician: Soraya Watson Primary Care Provider: Saul Grayson MD - Consult Narrative Palliative Care/Comfort Measures: Palliative care History of present illness: Mr. Rahman is a 65 year old male History of coronary artery disease and COPD. That MRI approximately a month ago cardiac catheterization showed double areas of dyskinesis and akinesis and a 20% ejection fraction and recommended medical management only. She has not been able to follow up with cardiology since then because he has had several exacerbations of his COPD which is resulted in his being hospitalized and missing his appointments with cardiology. At this point he does not feel he has ever had a chance to talk to his estate administrator about what his options actually are. [place] of shortness of breath at rest and chest discomfort and shortness of breath with any reasonable exertion. Continue at home. The discomfort is kind of a pressure across his chest is better with rest and worse with exertion is associated with shortness of breath does not radiate worst it is for 5/10 but the breathing gets to a 10 over 10. She states that as of about 4-5 months ago he was able to do some limited yard work and could only walk at least 10-15 yards before having to take a rest. Prior to all exacerbations of his COPD he was not able to make it from room to room without being significantly short of breath. He was having shortness of breath at rest. CC: Soraya Watson sob Past Med Surg Social Fam HX - Past Medical History Medical history: COPD (Oxygen dependent using 3 L continuously), coronary artery disease (Status post stents), diabetes (Not insulin-dependent), hyperlipidemia, hypertension, other (Systolic CHF with ejection fraction of 25% , peripheral artery disease, BPH, mild aortic stenosis) Psychiatric history: no psych history - Past Surgical History Surgical History: angioplasty/stent, sinus surgery, other - Social History Smoking Status: Former smoker Packs per day: Quit smoking 3 months ago used to smoke up to 2 packs per day for 55 years Smokeless Tobacco Status: No Alcohol use: occasionally, heavy Drug use: none - Family History Mother Hx Family Endocrine Disorder: Yes (diabeties) Medications and Allergies Albuterol Sulfate [Albuterol Inhaler] 2 puff IH Q4HR PRN 11/13/14 [History] Aspirin 81 mg PO DAILY 11/14/14 [History] Cholecalciferol (Vitamin D3) [Vitamin D3] 1,000 unit PO DAILY 11/14/14 [History] Clopidogrel [Plavix] 75 mg PO DAILY 11/14/14 [History] Ferrous Gluconate 324 mg PO DAILY 12/13/15 [History] Ipratropium [place] 1 spray NS DAILY 12/13/15 [History] Metformin HCl [Metformin HCl ER] 1,000 mg PO QPM 12/13/15 [History] Oxygen 3 l IH HS 12/13/15 [History] Ranitidine HCl [Heartburn Relief] 150 mg PO BID PRN 12/13/15 [History] Fluticasone Propionate [Flovent Hfa] 2 puff IH BID 08/08/16 [History] Ipratropium/Albuterol Neb [Duoneb] 3 ml IH Q6H PRN 08/08/16 [History] Atorvastatin [Lipitor] 40 mg PO HS #30 tablet 08/10/16 [Rx] Tamsulosin [Flomax] 0.4 mg PO DAILY #30 capsule 08/10/16 [Rx] Furosemide [Lasix] 20 mg PO Q12HR #60 tablet 08/21/16 [Rx] predniSONE [PredniSONE] 10 mg PO TAPER 9 Days 08/21/16 [Rx] Allergies No Known Allergies Allergy (Verified 09/05/16 02:00) - Constitutional Constitutional ROS PAL: decreased appetite - EENT Eyes: no discharge, no loss of vision, no pain Ears: no ear discharge, no ear pain Ears, nose, mouth, throat: epistaxis (when he strains at stool), no dysphagia, no mouth pain, no nasal congestion - Cardiovascular Cardiovascular ROS: chest pain, chest pain at rest, dyspnea on exertion, edema, leg edema - Respiratory Respiratory: cough, dyspnea, dyspnea on exertion, pain on inspiration - Gastrointestinal Gastrointestinal: no constipation, no diarrhea, no nausea, no vomiting - Genitourinary Genitourinary ROS male: no urinary frequency, no urinary hesitancy, no urinary incontinence - Musculoskeletal Musculoskeletal ROS IM: muscle weakness (generalized) - Integumentary ROS Integumentary: no skin ulcer, no sores - Neurological Neurological ROS: no behavioral changes, no disequilibrium, no dizziness, no focal weakness, no lack of coordination - Psychiatric Psychiatric general PM: change in appetite, no confusion, no homicidal ideation , no suicidal ideation - Endocrine Endocrine IM: other (dm) Palliative Care-Exam - Constitutional Vitals: Temp Pulse Resp BP Pulse Ox 97.5 F L 113 23 115/74 95 09/05/16 11:27 09/05/16 11:27 09/05/16 11:27 09/05/16 11:27 09/05/16 11:27 General appearance: Present: mild distress (sob) - Head Head Exam: Present: atraumatic - Eye Eye exam: Present: EOMI, normal appearance, periorbital tenderness, PERRL - ENT ENT exam: Present: mucous membranes dry - Respiratory Respiratory exam: Present: decreased breath sounds, wheezes (slight) - Cardiovascular Cardiovascular exam: Present: RRR, tachycardia - GI/Abdominal Exam GI/Abdominal exam: Present: normal bowel sounds, soft. Absent: tenderness - Extremities Exam Extremities exam: Present: normal inspection. Absent: pedal edema, tenderness - Neurological Exam Neurological exam: Present: alert, CN II-XII intact, oriented X3 - Psychiatric Psychiatric exam: Present: normal affect, normal mood. Absent: agitated, anxious - Skin Skin exam: Present: dry, warm Internal Medicine - CN: Reslt - Labs CBC & Chem 7: 09/05/16 02:00 09/05/16 02:35 Labs: Short CBC 09/05/16 09/05/16 Range/Units 07:23 10:48 POC Glucose 207 H (58-89) Troponin I 0.09 H* (0-0.03) ng/mL Cardiac Enzymes 09/05/16 Range/Units 10:48 Troponin I 0.09 H* (0-0.03) ng/mL - ABG Interpretation ABG results: PT/INR, D-dimer D-Dimer 583 ng/mLFEU (0-500) H 09/05/16 02:00 Consult Discharge Plan - Plan Referrals: Saul Grayson MD [Primary Care Provider] - 09/12/16 3:00 pm Palliative Quality Palliative Quality: Screen for Code Status: Yes, Screen for Goals of Care: Yes, Screen for Pain: Yes, If Pain Regimen Started, Initiate Bowel Regimen: Yes, Screen for Nausea/Vomitting: Yes
--- NOTE | 2016-09-05 14:12 | Cardiology Consult Note ---
Date of Encounter: 09/05/16 Time of Encounter: 14:10 Assessment and Plan (1) Acute and chronic respiratory failure Current Visit: No Status: Acute Per Cardiology: Known COPD presented with acute on chronic COPD exacerbation. Management per primary service. Palliative care following and evaluating for possible hospice. Patient confirms desire to be DNR/arrest/DNI. Qualifiers: Respiratory failure complication: hypoxia Qualified Code(s): J96.21 - Acute and chronic respiratory failure with hypoxia (2) Elevated troponin Current Visit: Yes Status: Acute Per Cardiology: Troponins 0.12, 0.10, 0.09. Peak troponin during non-STEMI 1.57 a few weeks ago. Chest pain-free. Do not suspect non-STEMI, suspect demand ischemia in setting of acute chronic COPD exacerbation. No cardiac rehabilitation consult warranted during this stay. (3) CAD (coronary artery disease) Current Visit: No Status: Chronic Per Cardiology: Recent catheterization from July 2016 patient underwent PTCA of proximal circumflex lesion approximately 99% to about 50% per review by Dr. Vandana Diaz. Patient had proximal LAD 30%, mid LAD 50%, distal LAD 50%; proximal RCA 90%, mid RCA 100% noted to be small vessel and does have collateral circulation. Remains chest pain-free. On aspirin, Plavix, statin. Qualifiers: Coronary Disease-Associated Artery/Lesion type: [place] artery [place] vs. transplanted heart: [place] heart Associated angina: without angina Qualified Code(s): I25.10 - Atherosclerotic heart disease of [place] coronary artery without angina pectoris (4) Cardiomyopathy Current Visit: No Status: Acute Per Cardiology: EF on echo July 2016 25%. Chest x-ray shows no evidence of effusion or pulmonary edema. Patient euvolemic on exam. BNP is elevated at 1095, however improved from 1700 during last hospital stay. Patient and family aware of recommendations for repeat echo in 3 months to assess for need of possible ICD. On lasix. According to previous medical records patient was on VANIA inhibitor. Systolic blood pressures in the 100s to 110s. Will resume VANIA inhibitor, start lisinopril 2.5 mg by mouth daily. We'll consider addition of beta michelle in outpatient setting based on respiratory status. Qualifiers: Cardiomyopathy type: ischemic Qualified Code(s): I25.5 - Ischemic cardiomyopathy (5) Aortic stenosis Current Visit: Yes Status: Chronic Per Cardiology: Moderate aortic stenosis and moderate mitral regurgitation noted on echo in July 2016. Qualifiers: Cardiac valve disease etiology: etiology unspecified Qualified Code(s): I35.0 - Nonrheumatic aortic (valve) stenosis (6) Tobacco abuse Current Visit: No Status: Acute Per Cardiology: Previous to smoke at least 2 packs per day for 55 years. He reports he continues to remain smoke-free over the past 3 months. Discussion w patient/family: The assessment and plan as outlined above was discussed with the patient and/or family members who expressed understanding and agreement. All questions were answered. Thank you for involving us in the care of your patient. Please call with any questions. Patient discussed and reviewed with primary service and palliative care team. I did spend about 30 minutes today with patient and family and answered all questions. Patient appears clinically stable from a cardiac standpoint. Will continue wit h medical management. Can consider addition of BB if resp status allows. Consider addition of nitrates/ranexa if needed. History of Present Illness Consult date: 09/05/16 Requesting physician: Soraya Wallace Consult reason: ICMP Chief complaint: SOB History of present illness: Mr. Rahman is a 65 year old male with a relevant past history of hypertension, hyperlipidemia, diabetes-[place] type II, history of CAD with previous stenting in 2006, COPD requiring home oxygen, past nicotine abuse of at least 2 packs per day for 55 years and reportedly quit smoking 3 months ago. Seen recently by cardiology within the past few weeks in the setting of a non- STEMI with peak troponin of 1.57. At that time patient underwent left heart catheterization and underwent PTCA to circumflex. Has been unable to follow-up with cardiology due to frequent readmissions for COPD exacerbation. Has pending appointment tomorrow with cardiology. Patient reports remitted due to worsening short of breath at rest and with exertion at home. He denies any chest pain. Denies any swelling. Denies any fever, chills, nausea, vomiting, diarrhea. He denies any palpitations, dizziness , syncope, falls. Reports has been on home oxygen for quite some time. Patient family report he is DNR [facility] arrest and DNI. He is currently exploring possible hospice options related to his COPD. Past Med Surg Social Fam HX - Past Medical History Attestation: Yes The following information was validated with the patient. Source: patient, old records reviewed, obtained from family Medical history: COPD (Oxygen dependent using 3 L continuously), coronary artery disease (Status post stents), diabetes (Not insulin-dependent), hyperlipidemia, hypertension, other (Systolic CHF with ejection fraction of 25% , peripheral artery disease, BPH, mild aortic stenosis) Psychiatric history: no psych history - Past Surgical History Surgical History: angioplasty/stent, sinus surgery, other - Social History Smoking Status: Former smoker Packs per day: Quit smoking 3 months ago used to smoke up to 2 packs per day for 55 years Smokeless Tobacco Status: No Alcohol use: occasionally, heavy Drug use: none - Family History Mother Hx Family Endocrine Disorder: Yes (diabeties) Medications and Allergies Albuterol Sulfate [Albuterol Inhaler] 2 puff IH Q4HR PRN 11/13/14 [History] Aspirin 81 mg PO DAILY 11/14/14 [History] Cholecalciferol (Vitamin D3) [Vitamin D3] 1,000 unit PO DAILY 11/14/14 [History] Clopidogrel [Plavix] 75 mg PO DAILY 11/14/14 [History] Ferrous Gluconate 324 mg PO DAILY 12/13/15 [History] Ipratropium [place] 1 spray NS DAILY 12/13/15 [History] Metformin HCl [Metformin HCl ER] 1,000 mg PO QPM 12/13/15 [History] Oxygen 3 l IH HS 12/13/15 [History] Ranitidine HCl [Heartburn Relief] 150 mg PO BID PRN 12/13/15 [History] Fluticasone Propionate [Flovent Hfa] 2 puff IH BID 08/08/16 [History] Ipratropium/Albuterol Neb [Duoneb] 3 ml IH Q6H PRN 08/08/16 [History] Atorvastatin [Lipitor] 40 mg PO HS #30 tablet 08/10/16 [Rx] Tamsulosin [Flomax] 0.4 mg PO DAILY #30 capsule 08/10/16 [Rx] Furosemide [Lasix] 20 mg PO Q12HR #60 tablet 08/21/16 [Rx] predniSONE [PredniSONE] 10 mg PO TAPER 9 Days 08/21/16 [Rx] Allergies No Known Allergies Allergy (Verified 09/05/16 02:00) All Systems Review: A 10-system review of systems was performed and is negative for pertinent findings except as documented above in the HPI. - Constitutional Constitutional: fatigue - Cardiovascular Cardiovascular: as per HPI, dyspnea at rest, dyspnea on exertion - Respiratory Respiratory: cough, dyspnea Physical Examination Vital Signs, Last 4 Hours Temp Pulse Resp BP Pulse Ox 09/05/16 11:27 97.5 F L 113 23 115/74 95 09/05/16 10:45 22 96 General: Conversant, Other (emaciated) HEENT: Atraumatic, Normocephaly, Mucus Membranes Moist Neck: No JVD, Normal carotid pulses Cardiac: Reg Rate and Rhythm, Normal S1 and S2, Other (Grade II/ murmur noted) Lungs: Other (Respirations mild to moderately labored at rest, on nasal cannula oxygen, diminished throughout) Neuro: Alert and responsive, No focal deficits noted Abdomen: Soft, Non-Tender Skin: No rashes noted on visualized skin Musculoskeletal: No Chest Wall Tenderness Extremities: No Edema, Normal Pulses Results 09/05/16 02:00 09/05/16 02:35 Lab Results Laboratory Tests 09/05/16 09/05/16 09/05/16 02:00 02:00 02:00 D-Dimer 583 H Creatinine Est GFR (Non-Af Amer) Troponin I 0.12 H* B-Natriuretic Peptide 1095 H 09/05/16 02:35 D-Dimer Creatinine 0.96 Est GFR (Non-Af Amer) > 60 Troponin I B-Natriuretic Peptide ITS Impressions Chest X-Ray 09/05/16 02:03 IMPRESSION: No focal airspace disease. Areas of atelectasis or scarring suspected in the right lung. No appreciable change. D/ / 09/05/2016 07:31:50 [facility]rav[facility]donado [facility] / [facility] Interpreting Provider: Sravan Maldonado MD Active Medications Acetaminophen (Tylenol) 650 mg PO Q6HR PRN PRN Reason: Mild Pain (1-3) Stop: 03/07/17 05:09 Albuterol/Ipratropium (Duoneb) 3 ml IH [id number] [place] PRN Reason: Protocol Stop: 03/07/17 10:01 Last Admin: 09/05/16 10:44 Dose: 3 ml Aspirin (Aspirin) 81 mg PO DAILY [facility] Stop: 03/07/17 09:01 Last Admin: 09/05/16 07:50 Dose: 81 mg Clopidogrel Bisulfate (Plavix) 75 mg PO DAILY [facility] Stop: 03/07/17 09:01 Last Admin: 09/05/16 07:50 Dose: 75 mg Dextrose/Water (Dextrose 50% (Syg)) 25 ml IVP AD PRN PRN Reason: Hypoglycemia Stop: 03/07/17 05:09 Famotidine (Pepcid) 20 mg PO BID PRN PRN Reason: GERD Furosemide (Lasix) 20 mg PO Q12HR [facility] Stop: 03/07/17 06:01 Last Admin: 09/05/16 05:53 Dose: 20 mg Glucagon (Glucagen) 1 mg IM ONCE PRN PRN Reason: Hypoglycemia Stop: 03/07/17 05:09 Glucose (Gluctose) 15 gm PO ONCE PRN PRN Reason: Hypoglycemia Stop: 03/07/17 05:09 Glucose (Gluctose) 30 gm PO ONCE PRN PRN Reason: Hypoglycemia Stop: 03/07/17 05:09 Heparin Sodium (Porcine) (Heparin) 5,000 unit SQ Q8HCO [facility] Stop: 03/07/17 06:01 Last Admin: 09/05/16 05:53 Dose: Not Given Ceftriaxone Sodium 1,000 mg/ (Dextrose) 100 mls @ 200 mls/hr IVPB DAILY [facility] Stop: 03/07/17 09:01 Last Admin: 09/05/16 07:50 Dose: 200 mls/hr Dextrose (Dextrose 5%) 1,000 mls @ 100 mls/hr IVC .Q10H PRN PRN Reason: HYPOGLYCEMIA Stop: 03/07/17 05:09 Insulin Human Lispro (Humalog) 0 units SQ TIDAC [facility] PRN Reason: Protocol Stop: 03/07/17 07:31 Last Admin: 09/05/16 12:52 Dose: 4 units Insulin Human Lispro (Humalog) 0 units SQ HS [facility] PRN Reason: Protocol Stop: 03/07/17 21:01 Methylprednisolone (Solu-Medrol) 40 mg IVP Q8HR [facility] Stop: 03/07/17 08:01 Last Admin: 09/05/16 07:50 Dose: 40 mg Morphine Sulfate (Morphine Sulfate) 1 mg IVP Q2H PRN PRN Reason: pain or sob Stop: 03/07/17 05:09 Naloxone HCl (Narcan) 0.4 mg IVP Q2MIN PRN PRN Reason: Opioid Reversal Stop: 03/07/17 05:09 Nitroglycerin (Nitroglycerin) 0.4 mg SL Q5MIN PRN PRN Reason: Chest Pain Stop: 03/07/17 05:06 Omeprazole (Prilosec) 40 mg PO DAILY@0630 [place] PRN Reason: Protocol Stop: 03/07/17 06:31 Last Admin: 09/05/16 05:53 Dose: 40 mg Ondansetron HCl (Zofran) 4 mg IVP Q8HR PRN PRN Reason: Nausea And Vomiting Stop: 03/07/17 05:09 Senna/Docusate Sodium (Senna Plus) 1 each PO BID [place] PRN Reason: Protocol Stop: 03/07/17 21:01 Simvastatin (Zocor) 40 mg PO HS [facility] Stop: 03/07/17 21:01 Tamsulosin HCl (Flomax) 0.4 mg PO DAILY [place] PRN Reason: Protocol Stop: 03/07/17 09:01 Last Admin: 09/05/16 07:50 Dose: 0.4 mg - Imaging and Cardiology Echo: report reviewed Cardiac cath: report reviewed - EKG Interpretation EKG results cardiology: personally reviewed (ST), normal ECG, other (Telemetry reviewed with average heart rate 110, sinus rhythm to sinus tachycardia, currently sinus tach at 100 on telemetry) Consult Discharge Plan - Plan Referrals: Saul Grayson MD [Primary Care Provider] - 09/12/16 3:00 pm
[2016-09-05] MEDS: *HR* Morphine 2 MG/ML SYRINGE IVP PRN ×3 (15:11→23:30)
--- NOTE | 2016-09-05 16:13 | Internal Med Progress Note ---
Date of Encounter: 09/05/16 Time of Encounter: 09:30 - Assessment and plan (1) COPD exacerbation Current Visit: No Status: Acute Assessment and plan: Patient with end-stage COPD. On examination, patient with moderate respiratory distress and poor aeration. He is on 3 L per nasal cannula continuously. In review of his chart, he was admitted last month for the same thing where they attempted to qualify him for BiPAP but he did not qualify. This is his third admission within the last several weeks. Continue pulmonary toilet measures. Chest x-ray negative. Continue ceftriaxone. Given the multiple readmissions in the end-stage nature of his COPD coupled with his new onset of systolic heart failure, palliative care has been brought on board, appreciate their recommendations. Patient still wants to be a DNR CCA DNI but he would like to discuss his options particularly his cardiac options. ITS Impressions Chest X-Ray 09/05/16 02:03 IMPRESSION: No focal airspace disease. Areas of atelectasis or scarring suspected in the right lung. No appreciable change. D/ / 09/05/2016 07:31:50 Sravan Maldonado MD / [facility] Interpreting Provider: Sravan Maldonado MD (2) Goals of care, counseling/discussion Current Visit: Yes Status: Acute Assessment and plan: See prior note for COPD exacerbation (3) End stage COPD Current Visit: Yes Status: Acute (4) Former heavy tobacco smoker Current Visit: Yes Status: Chronic Assessment and plan: 2 pack per day smoker for 55 years, stopped 3 months ago (5) Systolic heart failure Current Visit: Yes Status: Chronic Assessment and plan: Patient had an echocardiogram in July that revealed an ejection fraction of 25%. Chest x-ray negative. No signs of fluid overload on examination. Cardiology is on board. BNP elevated however improved from his admission last month. Appreciate cardiology recommendations. Of note, this is a relatively new diagnosis since last month the patient and the family would like to discuss what their options are moving forward. They state that he has not been able to follow-up with cardiology thus far given his multiple readmissions. (6) CAD (coronary artery disease) Current Visit: No Status: Chronic Qualifiers: Coronary Disease-Associated Artery/Lesion type: [place] artery [place] vs. transplanted heart: [place] heart Associated angina: without angina Qualified Code(s): I25.10 - Atherosclerotic heart disease of [place] coronary artery without angina pectoris (7) PVD (peripheral vascular disease) Current Visit: No Status: Chronic (8) DM2 (diabetes mellitus, type 2) Current Visit: No Status: Chronic Assessment and plan: Controlled at home with a recent A1c of 5.7%. Continue sliding scale while admitted. Qualifiers: Diabetes mellitus complication status: without complication Diabetes mellitus termite control representative insulin use: without termite control representative use Qualified Code(s): E11.9 - Type 2 diabetes mellitus without complications (9) BPH (benign prostatic hyperplasia) Current Visit: No Status: Chronic Qualifiers: Prostatic enlargement morphology: unspecified morphology Lower urinary tract symptom presence: symptoms absent Qualified Code(s): N40.0 - Benign prostatic hyperplasia without lower urinary tract symptoms (10) DVT prophylaxis Current Visit: No Status: Acute Assessment and plan: Subcutaneous heparin (11) Elevated troponin Current Visit: No Status: Chronic Assessment and plan: Chronic and is trending down from his prior NC last month. (12) Essential hypertension Current Visit: No Status: Chronic Assessment and plan: Controlled. Slightly hypotensive, will trend. (13) COPD (chronic obstructive pulmonary disease) Current Visit: No Status: Chronic Qualifiers: COPD type: unspecified COPD Qualified Code(s): J44.9 - Chronic obstructive pulmonary disease, unspecified (14) Cardiomyopathy Current Visit: No Status: Chronic Qualifiers: Cardiomyopathy type: ischemic Qualified Code(s): I25.5 - Ischemic cardiomyopathy (15) Acute and chronic respiratory failure Current Visit: No Status: Chronic Assessment and plan: At home, patient is on 3 L per nasal cannula continuously. During his visit last month, they attempted to qualify him for BiPAP but he did not qualify. Qualifiers: Respiratory failure complication: hypoxia Qualified Code(s): J96.21 - Acute and chronic respiratory failure with hypoxia (16) Aortic stenosis Current Visit: Yes Status: Chronic Assessment and plan: Cardiology on board Qualifiers: Cardiac valve disease etiology: etiology unspecified Qualified Code(s): I35.0 - Nonrheumatic aortic (valve) stenosis - Subjective Interval history: Patient seen and examined. On examination, patient resting supine in bed. Patient alert and oriented 3 and currently denies pain. He does endorse continued shortness of breath above his norm. - Constitutional Vitals: Temp Pulse Resp BP Pulse Ox 97.7 F 118 22 99/66 97 09/05/16 15:35 09/05/16 15:35 09/05/16 15:35 09/05/16 15:35 09/05/16 15:35 General appearance: Present: cachectic, A&O X 3, pleasant, severe distress ( moderate), answers questions appropriately - Head Head exam: Present: atraumatic, normocephalic - Eye Eye exam: Present: PERRL, conjuntiva pink, sclera anicteric Pupils: Present: PERRL - Neck Neck exam general surgery: Present: supple, trachea midline. Absent: lymphadenopathy - Respiratory Respiratory exam: Present: accessory muscle use, decreased breath sounds, prolonged expiratory phase, respiratory distress, wheezes. Absent: CTAB, rales , rhonchi - Cardiovascular Cardiovascular exam: Present: RRR, +S1, +S2. Absent: diastolic murmur, gallop, rubs, systolic murmur - GI/Abdominal GI/Abdominal exam: Present: normal bowel sounds, soft, no peritoneal signs. Absent: distended, tenderness - Extremities Exam Extremities exam: Present: warm, radial pulses palpable and symetrical. Absent : calf tenderness, cyanotic, pedal edema - Neurological Exam Neurological exam: Present: alert, CN II-XII intact, oriented X3, no focal deficits, strengths equal and symetr throughout. Absent: pronater drift, facial droop, speech deficit - Skin Skin exam: Present: dry, intact, pallor, warm Internal Medicine: Result - Labs CBC & Chem 7: 09/05/16 02:00 09/05/16 02:35 Labs: Cardiac Enzymes 09/05/16 Range/Units 10:48 Troponin I 0.09 H* (0-0.03) ng/mL - ABG Interpretation ABG results: PT/INR, D-dimer D-Dimer 583 ng/mLFEU (0-500) H 09/05/16 02:00 Consult Discharge Plan - Plan Referrals: Saul Grayson MD [Primary Care Provider] - 09/12/16 3:00 pm
[2016-09-05] MEDS: Sennosides/Docusate Sodium TABLET PO SCH (20:11)
[2016-09-06] MEDS: *HR* Morphine 2 MG/ML SYRINGE IVP PRN (02:54)
[2016-09-06] MEDS: Ipratropium/Albuterol Neb 3 ML IH SCH ×4 (03:44→22:55)
[2016-09-06 05:08] LABS: Hematocrit 25.7 % (37.5-50.1); Immature Granulocytes % 0.6 % (0-4); Lymphocytes # 0.4 K/mcL (0.6-4.6); Lymphocytes % 4.7 %; Mean Corpuscular HGB Conc 31.5 g/dL (31.6-35.5); Mean Corpuscular Hemoglobin 27.5 pg (28.0-33.3); Mean Corpuscular Volume 87.1 fL (83.0-100.0); Mean Platelet Volume 9.4 fL (9.4-12.4); Monocytes # 0.3 K/mcL (0.0-1.3); Monocytes % 3.1 %; Neutrophils # 7.6 K/mcL (1.6-8.9); Platelet Count 231 K/mcL (140-400); Red Blood Count 2.95 M/mcL (4.19-5.50); Red Cell Distribution Width 13.5 % (11.5-14.5); Segmented Neutrophils % 91.6 %
[2016-09-06 05:31] LABS: BUN/Creatinine Ratio 22 (6-26); Blood Urea Nitrogen 20 mg/dL (8-26); Calcium 8.9 mg/dL (8.6-10.8); Carbon Dioxide 30 mEq/L (19-29); Chloride 96 mEq/L (98-109); Glucose 208 mg/dL (70-99); Osmolality,Calculated 287 (280-300); Potassium 3.8 mEq/L (3.5-4.5); Sodium 134 mEq/L (136-145); eGFR For African Americans > 60 (> 60); eGFR For Non-African Americans > 60 (> 60)
[2016-09-06] MEDS: *HR* Heparin 5,000 UNIT/ML VIAL SQ SCH ×2 (05:56→15:32)
[2016-09-06] MEDS: Furosemide 20 MG TABLET PO SCH (05:56)
[2016-09-06 07:24] LABS: Hemoglobin 8.1 g/dL (12.9-16.9)
[2016-09-06] MEDS ORDERED: Morphine Oral CONC 5 MG/0.25 ML ORAL.SYG PO PRN (07:46)
[2016-09-06] MEDS: Aspirin 81 MG TAB.CHEW PO SCH (07:55)
[2016-09-06] MEDS: Sennosides/Docusate Sodium TABLET PO SCH ×3 (07:56→20:07)
[2016-09-06] MEDS: MethylPREDNISolone 40 MG/ML VIAL IVP SCH ×3 (07:57→23:05)
[2016-09-06] MEDS: Insulin LISPRO 300 UNITS/3 ML VIAL SQ SCH ×4 (07:58→20:09)
--- NOTE | 2016-09-06 09:17 | Palliative Progress Note ---
Date of Encounter: 09/06/16 Time of Encounter: 07:40 - Assessment and plan (1) Chest pain Current Visit: Yes Status: Acute Assessment and plan: Believe this to be related back to his breathing, it is under good control with current medications. The patient does become very breathless with any exertion. Will plan conversion of medications to by mouth today. Qualifiers: Chest pain type: chest pain on breathing Qualified Code(s): R07.1 - Chest pain on breathing (2) COPD exacerbation Current Visit: No Status: Acute Assessment and plan: Plan per hospitalist team, patient is undergoing an extended COPD exacerbation which I believe has just been made worse by the fact he had a recent [place]. (3) CAD (coronary artery disease) Current Visit: No Status: Chronic Assessment and plan: Discussion with cardiology yesterday, cardiology believes that the ejection fraction of between 20 and 25% (catheter versus echo) represents some improvement. They extends the possibility of stunned myocardium being the primary problem with the low ejection fraction. They believe, that this will continue to get better at least to some degree and they will follow-up with this as an outpatient. I spent some time with the patient talking to him about this this morning and reminded him that yesterday I had spoken to him about the possibility of stunned myocardium and that this is what cardiology believes occurred, and that it may very well come back. I have recommended the patient to give it time, and follow-up with cardiology. Qualifiers: Coronary Disease-Associated Artery/Lesion type: [place] artery [place] vs. transplanted heart: [place] heart Associated angina: without angina Qualified Code(s): I25.10 - Atherosclerotic heart disease of [place] coronary artery without angina pectoris (4) Goals of care, counseling/discussion Current Visit: Yes Status: Acute Assessment and plan: Patient is DNR CCA DNI and this CODE STATUS was established prior to consultation with palliative care. Have however put state forms on the chart at patient request. I believe the patient is hospice eligible, secondary to his breathing, and his heart disease however this is all based on acute events, . As such, the patient could not come into hospice and do well enough that will require discharge within the next 4-5 months. I believe the patient should follow up with cardiology avail himself of what ever is available from them and therefore do not believe that hospice is appropriate for him at this time, the patient understands that it is a backup. Currently recommend palliative home care to try to keep the patient out of the hospital, and continue to use oral morphine for his shortness of breath, as this seems to be working quite well currently. I have discussed this at length with the patient' s hospitalist team and they will arrange follow-up as an outpatient. - Time Spent With Patient Total time spent is greater than 50% in coordination of care (as documented) at patient's floor/unit and/or counseling patient: - Subjective Interval history: The patient states that he is still being short of breath especially with any exertion. States the morphine does seem to help a great deal. However seems to wear off fairly quick. He is however not using it as often as he can. And his pain ratings after each time he is gotten the medication have been 0. - Constitutional Vitals: Abnormal lab results RBC 2.95 M/mcL (4.19-5.50) L 09/06/16 04:41 Hgb 8.1 g/dL (12.9-16.9) L D 09/06/16 04:41 Hct 25.7 % (37.5-50.1) L 09/06/16 04:41 MCH 27.5 pg (28.0-33.3) L 09/06/16 04:41 MCHC 31.5 g/dL (31.6-35.5) L 09/06/16 04:41 Lymphocytes # 0.4 K/mcL (0.6-4.6) L 09/06/16 04:41 D-Dimer 583 ng/mLFEU (0-500) H 09/05/16 02:00 VBG pH 7.43 pH Units (7.32-7.42) H 09/05/16 02:35 VBG pO2 94 mmHg (25-40) H 09/05/16 02:35 VBG HCO3 33.2 mEq/L (21-27) H 09/05/16 02:35 Sodium 134 mEq/L (136-145) L 09/06/16 04:41 Chloride 96 mEq/L (98-109) L 09/06/16 04:41 Carbon Dioxide 30 mEq/L (19-29) H 09/06/16 04:41 Glucose 208 mg/dL (70-99) H 09/06/16 04:41 POC Glucose 195 (58-89) H 09/06/16 07:44 Troponin I 0.15 ng/mL (0-0.03) H* 09/05/16 17:27 B-Natriuretic Peptide 1095 pg/mL (0-100) H 09/05/16 02:00 General appearance: Present: no acute distress - Head Head exam: Present: atraumatic, normal inspection - ENT ENT exam: Present: mucous membranes moist - Respiratory Respiratory exam: Present: decreased breath sounds - Cardiovascular Cardiovascular exam: Present: RRR, tachycardia - GI/Abdominal GI/Abdominal exam: Present: normal bowel sounds, soft. Absent: tenderness - Extremities Exam Extremities exam: Present: normal inspection. Absent: pedal edema, tenderness - Neurological Exam Neurological exam: Present: alert, oriented X3 - Psychiatric Psychiatric exam: Present: normal affect, normal mood. Absent: agitated, anxious - Skin Skin exam: Present: dry, warm Palliative Quality Palliative Quality: Screen for Code Status: Yes, Screen for Goals of Care: Yes, Screen for Pain: Yes, If Pain Regimen Started, Initiate Bowel Regimen: Yes, Screen for Nausea/Vomitting: Yes - Labs CBC & Chem 7: 09/06/16 08:26 09/06/16 04:41 Labs: Laboratory Results - last 24 hr 09/05/16 09/05/16 09/05/16 10:48 11:23 16:32 WBC RBC Hgb Hct MCV MCH MCHC RDW Plt Count MPV Immature Gran % Seg Neutrophils % Lymphocytes % Monocytes % Eosinophils % Basophils % Neutrophils # Lymphocytes # Monocytes # Eosinophils # Basophils # Sodium Potassium Chloride Carbon Dioxide BUN Creatinine Est GFR ( Amer) Est GFR (Non-Af Amer) BUN/Creatinine Ratio Glucose POC Glucose 182 H 193 H Calculated Osmolality Calcium Troponin I 0.09 H* 09/05/16 09/05/16 09/06/16 17:27 20:09 04:41 WBC RBC Hgb Hct MCV MCH MCHC RDW Plt Count MPV Immature Gran % Seg Neutrophils % Lymphocytes % Monocytes % Eosinophils % Basophils % Neutrophils # Lymphocytes # Monocytes # Eosinophils # Basophils # Sodium 134 L Potassium 3.8 Chloride 96 L Carbon Dioxide 30 H BUN 20 Creatinine 0.92 Est GFR ( Amer) > 60 Est GFR (Non-Af Amer) > 60 BUN/Creatinine Ratio 22 Glucose 208 H POC Glucose 226 H Calculated Osmolality 287 Calcium 8.9 Troponin I 0.15 H* 09/06/16 09/06/16 04:41 07:44 WBC 8.3 RBC 2.95 L Hgb 8.1 L D Hct 25.7 L MCV 87.1 MCH 27.5 L MCHC 31.5 L RDW 13.5 Plt Count 231 MPV 9.4 Immature Gran % 0.6 Seg Neutrophils % 91.6 Lymphocytes % 4.7 Monocytes % 3.1 Eosinophils % 0.0 Basophils % 0.0 Neutrophils # 7.6 Lymphocytes # 0.4 L Monocytes # 0.3 Eosinophils # 0.0 Basophils # 0.0 Sodium Potassium Chloride Carbon Dioxide BUN Creatinine Est GFR ( Amer) Est GFR (Non-Af Amer) BUN/Creatinine Ratio Glucose POC Glucose 195 H Calculated Osmolality Calcium Troponin I - ABG Interpretation ABG results: PT/INR, D-dimer D-Dimer 583 ng/mLFEU (0-500) H 09/05/16 02:00 Consult Discharge Plan - Plan Referrals: Saul Grayson MD [Primary Care Provider] - 09/12/16 3:00 pm
[2016-09-06 09:28] LABS: Hematocrit 27.1 % (37.5-50.1); Hemoglobin 8.5 g/dL (12.9-16.9)
--- NOTE | 2016-09-06 11:11 | Internal Med Progress Note ---
Date of Encounter: 09/06/16 Time of Encounter: 09:00 - Assessment and plan (1) Anemia Current Visit: Yes Status: Acute Assessment and plan: Hemoglobin has slowly trended down over the last month. Unknown causation. Patient endorsing black stools however he has attributed this to an iron supplementation. We will check a guaiac. I spoke to the patient about the possibility of a blood transfusion given that he is weak and more short of breath than usual. Patient stated he would like to avoid a transfusion if possible but states if he needs it and he will consent to transfusion. Repeat H &H revealing stability with hemoglobin this morning of 8.1 and repeat a couple hours later of a 0.5. We will hold off on transfusing him at this time, and monitor closely. Guaiac is pending. We will also check iron, B12, folate, TSH. (2) COPD exacerbation Current Visit: No Status: Acute Assessment and plan: Patient with end-stage COPD. On examination, patient with moderate respiratory distress and poor aeration although slightly improved today. He is on 3 L per nasal cannula continuously. In review of his chart, he was admitted last month for the same thing where they attempted to qualify him for BiPAP but he did not qualify. This is his third admission within the last several weeks. Continue pulmonary toilet measures. Chest x-ray negative. Continue ceftriaxone. Given the multiple readmissions in the end-stage nature of his COPD coupled with his new onset of systolic heart failure, palliative care was brought on board. Patient still wants to be a DNR CCA DNI but he would like to discuss his options particularly his cardiac options and cardiology has seen the patient and family and have cleared them for outpatient followup. Tentatively, plan is to discharge home with palliative care but his anemia needs investigated prior. ITS Impressions Chest X-Ray 09/05/16 02:03 IMPRESSION: No focal airspace disease. Areas of atelectasis or scarring suspected in the right lung. No appreciable change. D/ / 09/05/2016 07:31:50 Sravan Maldonado MD / rita Interpreting Provider: Sravan Maldonado MD (3) Goals of care, counseling/discussion Current Visit: Yes Status: Acute Assessment and plan: See prior note for COPD exacerbation (4) Decreased oral intake Current Visit: Yes Status: Acute Assessment and plan: Patient has not been eating very much of his food. I discussed with him the possibility of an appetite stimulant however patient declines. Patient stating he certainly does not want to gain weight stating that if he gains weight, his feels that his shortness of breath will worsen. Stressed importance of maintaining his weight, patient stating that he snacks all day and again does not want an appetite stimulant. (5) End stage COPD Current Visit: Yes Status: Acute (6) Former heavy tobacco smoker Current Visit: Yes Status: Chronic Assessment and plan: 2 pack per day smoker for 55 years, stopped 3 months ago (7) Systolic heart failure Current Visit: Yes Status: Chronic Assessment and plan: Patient had an echocardiogram in July that revealed an ejection fraction of 25%. Chest x-ray negative. No signs of fluid overload on examination. Cardiology was on board and have cleared him for outpatient followup and are cautiously optimistic that his EF may very well increase as he recovers from his recent [place]. BNP elevated however improved from his admission last month. (8) CAD (coronary artery disease) Current Visit: No Status: Chronic Qualifiers: Coronary Disease-Associated Artery/Lesion type: [place] artery [place] vs. transplanted heart: [place] heart Associated angina: without angina Qualified Code(s): I25.10 - Atherosclerotic heart disease of [place] coronary artery without angina pectoris (9) PVD (peripheral vascular disease) Current Visit: No Status: Chronic (10) DM2 (diabetes mellitus, type 2) Current Visit: No Status: Chronic Assessment and plan: Controlled at home with a recent A1c of 5.7%. Continue sliding scale while admitted. Qualifiers: Diabetes mellitus complication status: without complication Diabetes mellitus custodial insulin use: without terminal gauger supervisor use Qualified Code(s): E11.9 - Type 2 diabetes mellitus without complications (11) BPH (benign prostatic hyperplasia) Current Visit: No Status: Chronic Qualifiers: Prostatic enlargement morphology: unspecified morphology Lower urinary tract symptom presence: symptoms absent Qualified Code(s): N40.0 - Benign prostatic hyperplasia without lower urinary tract symptoms (12) DVT prophylaxis Current Visit: No Status: Acute Assessment and plan: Subcutaneous heparin (13) Elevated troponin Current Visit: No Status: Chronic Assessment and plan: Chronic and is trending down from his prior [place] last month. (14) Essential hypertension Current Visit: No Status: Chronic Assessment and plan: Hypotensive. He is alert and oriented x3. He does endorse weakness and dyspnea worse than his baseline which is multifactorial including anemia, COPDEX , CHF. He has no signs of sepsis. No Leukocytosis. Tachycardia is expected given that he is getting frequent bronchodilators and steroids. At home, only antihypertensive medication is furosemide. He has not been eating or drinking very much- will hold furosemide and monitor. (15) COPD (chronic obstructive pulmonary disease) Current Visit: No Status: Chronic Qualifiers: COPD type: unspecified COPD Qualified Code(s): J44.9 - Chronic obstructive pulmonary disease, unspecified (16) Cardiomyopathy Current Visit: No Status: Chronic Qualifiers: Cardiomyopathy type: ischemic Qualified Code(s): I25.5 - Ischemic cardiomyopathy (17) Acute and chronic respiratory failure Current Visit: No Status: Chronic Assessment and plan: At home, patient is on 3 L per nasal cannula continuously. During his visit last month, they attempted to qualify him for BiPAP but he did not qualify. Qualifiers: Respiratory failure complication: hypoxia Qualified Code(s): J96.21 - Acute and chronic respiratory failure with hypoxia (18) Aortic stenosis Current Visit: Yes Status: Chronic Assessment and plan: Cardiology has signed off and cleared for outpatient followup. Qualifiers: Cardiac valve disease etiology: etiology unspecified Qualified Code(s): I35.0 - Nonrheumatic aortic (valve) stenosis - Subjective Interval history: Patient seen and examined. On examination, patient sitting in high [place]. He continues to endorse shortness of breath above his normal as well as generalized weakness. He states the Morphine has been a "real help." He states he is not eating very much, but states he has been snacking throughout the day. - Constitutional Vitals: Temp Pulse Resp BP Pulse Ox 97.6 F 99 24 91/61 95 09/06/16 11:02 09/06/16 11:02 09/06/16 11:02 09/06/16 11:02 09/06/16 11:02 General appearance: Present: cachectic, A&O X 3, pleasant, severe distress ( moderate), answers questions appropriately - Head Head exam: Present: atraumatic, normocephalic - Eye Eye exam: Present: PERRL, conjuntiva pink, sclera anicteric Pupils: Present: PERRL - Neck Neck exam general surgery: Present: supple, trachea midline. Absent: lymphadenopathy - Respiratory Respiratory exam: Present: accessory muscle use, decreased breath sounds, prolonged expiratory phase, respiratory distress, wheezes. Absent: rales, rhonchi - Cardiovascular Cardiovascular exam: Present: RRR, +S1, +S2. Absent: diastolic murmur, gallop, rubs, systolic murmur - GI/Abdominal GI/Abdominal exam: Present: normal bowel sounds, soft, no peritoneal signs. Absent: distended, tenderness - Extremities Exam Extremities exam: Present: warm, radial pulses palpable and symetrical. Absent : calf tenderness, cyanotic, pedal edema - Neurological Exam Neurological exam: Present: alert, CN II-XII intact, oriented X3, no focal deficits, strengths equal and symetr throughout. Absent: pronater drift, facial droop, speech deficit - Skin Skin exam: Present: cyanosis (circumoral), dry, intact, pallor, warm Internal Medicine: Result - Labs CBC & Chem 7: 09/06/16 08:26 09/06/16 04:41 Labs: Short CBC 09/06/16 09/06/16 Range/Units 04:41 08:26 WBC 8.3 (4.3-11.1) K/mcL Hgb 8.1 L D 8.5 L (12.9-16.9) g/dL Hct 25.7 L 27.1 L (37.5-50.1) % Plt Count 231 (140-400) K/mcL Neutrophils # 7.6 (1.6-8.9) K/mcL BMP 09/06/16 04:41 Sodium 134 L Potassium 3.8 Chloride 96 L Carbon Dioxide 30 H BUN 20 Creatinine 0.92 Glucose 208 H Calcium 8.9 Cardiac Enzymes 09/05/16 09/05/16 Range/Units 10:48 17:27 Troponin I 0.09 H* 0.15 H* (0-0.03) ng/mL - ABG Interpretation ABG results: PT/INR, D-dimer D-Dimer 583 ng/mLFEU (0-500) H 09/05/16 02:00 Consult Discharge Plan - Plan Referrals: Saul Grayson MD [Primary Care Provider] - 09/12/16 3:00 pm
[2016-09-06 13:21] LABS: Folate 7.6 ng/mL (7.0-31.4)
[2016-09-06 14:53] LABS: Thyroid Stimulating Hormone 1.078 mcIU/mL (0.350-4.840)
[2016-09-06] MEDS: Morphine Oral CONC 5 MG/0.25 ML ORAL.SYG PO PRN ×2 (16:46→23:06)
[2016-09-07] MEDS: *HR* Heparin 5,000 UNIT/ML VIAL SQ SCH ×4 (01:19→21:00)
[2016-09-07] MEDS: Morphine Oral CONC 5 MG/0.25 ML ORAL.SYG PO PRN ×5 (02:20→20:58)
[2016-09-07] MEDS: Ipratropium/Albuterol Neb 3 ML IH SCH ×4 (03:24→22:45)
[2016-09-07 06:24] LABS: Basophils % 0.1 %; Hematocrit 28.2 % (37.5-50.1); Immature Granulocytes % 1.2 % (0-4); Lymphocytes # 0.3 K/mcL (0.6-4.6); Mean Corpuscular HGB Conc 31.9 g/dL (31.6-35.5); Mean Corpuscular Hemoglobin 27.9 pg (28.0-33.3); Mean Corpuscular Volume 87.3 fL (83.0-100.0); Mean Platelet Volume 9.8 fL (9.4-12.4); Monocytes # 0.5 K/mcL (0.0-1.3); Neutrophils # 10.3 K/mcL (1.6-8.9); Platelet Count 263 K/mcL (140-400); Red Blood Count 3.23 M/mcL (4.19-5.50); Red Cell Distribution Width 13.5 % (11.5-14.5); Segmented Neutrophils % 91.7 %
[2016-09-07 06:37] LABS: BUN/Creatinine Ratio 33 (6-26); Calcium 9.3 mg/dL (8.6-10.8); Carbon Dioxide 29 mEq/L (19-29); Chloride 93 mEq/L (98-109); Glucose 181 mg/dL (70-99); Osmolality,Calculated 285 (280-300); Potassium 4.5 mEq/L (3.5-4.5); Sodium 132 mEq/L (136-145); eGFR For African Americans > 60 (> 60); eGFR For Non-African Americans > 60 (> 60)
[2016-09-07 06:41] LABS: Blood Urea Nitrogen 31 mg/dL (8-26)
[2016-09-07] MEDS ORDERED: Ferumoxytol 510 MG in 0.9 % Sodium Chloride 100 ML IVPB ONE (07:46)
[2016-09-07] MEDS: Sennosides/Docusate Sodium TABLET PO SCH ×2 (08:20→20:57)
[2016-09-07] MEDS: Aspirin 81 MG TAB.CHEW PO SCH (08:20)
[2016-09-07] MEDS: Insulin LISPRO 300 UNITS/3 ML VIAL SQ SCH ×4 (08:22→20:59)
--- NOTE | 2016-09-07 09:28 | Palliative Progress Note ---
Date of Encounter: 09/07/16 Time of Encounter: 07:40 - Assessment and plan (1) Chest pain Current Visit: Yes Status: Acute Assessment and plan: Believe this to be related back to his breathing, it is under good control with current medications. The patient does become very breathless with any exertion. Patient is doing well with oral medications. Qualifiers: Chest pain type: chest pain on breathing Qualified Code(s): R07.1 - Chest pain on breathing (2) COPD exacerbation Current Visit: No Status: Acute Assessment and plan: Plan per hospitalist team, patient is undergoing an extended COPD exacerbation which I believe has just been made worse by the fact he had a recent [place]. Complicating this also appears to be anemia which is probably of chronic disease. This would explain the normal MCV, normal transferrin and ferritin levels as well as the extremely low iron levels despite the fact the patient's been taking oral iron. Discussed with hospitalist team about the possibility of patient getting some IV iron prior to discharge. (3) CAD (coronary artery disease) Current Visit: No Status: Chronic Assessment and plan: Discussion with cardiology yesterday, cardiology believes that the ejection fraction of between 20 and 25% (catheter versus echo) represents some improvement. They extends the possibility of stunned myocardium being the primary problem with the low ejection fraction. They believe, that this will continue to get better at least to some degree and they will follow-up with this as an outpatient. I spent some time with the patient talking to him about this this morning and reminded him that yesterday I had spoken to him about the possibility of stunned myocardium and that this is what cardiology believes occurred, and that it may very well come back. I have recommended the patient to give it time, and follow-up with cardiology. Qualifiers: Coronary Disease-Associated Artery/Lesion type: [place] artery [place] vs. transplanted heart: [place] heart Associated angina: without angina Qualified Code(s): I25.10 - Atherosclerotic heart disease of [place] coronary artery without angina pectoris (4) Goals of care, counseling/discussion Current Visit: Yes Status: Acute Assessment and plan: Patient is DNR CCA DNI and this CODE STATUS was established prior to consultation with palliative care. Have however put state forms on the chart at patient request. I believe the patient is hospice eligible, secondary to his breathing, and his heart disease however this is all based on acute events, . As such, the patient could not come into hospice and do well enough that will require discharge within the next 4-5 months. I believe the patient should follow up with cardiology avail himself of what ever is available from them and therefore do not believe that hospice is appropriate for him at this time, the patient understands that it is a backup. Currently recommend palliative home care to try to keep the patient out of the hospital, and continue to use oral morphine for his shortness of breath, as this seems to be working quite well currently. I have discussed this at length with the patient' s hospitalist team and they will arrange follow-up as an outpatient. With the patient is ready for discharge plan for outpatient palliative home care - Time Spent With Patient Total time spent is greater than 50% in coordination of care (as documented) at patient's floor/unit and/or counseling patient: - Subjective Interval history: The patient states that his breathing is about the same. Every gets up and moves around he gets extremely short of breath. He also appears to be short of breath at rest - Constitutional Vitals: Abnormal lab results WBC 11.2 K/mcL (4.3-11.1) H 09/07/16 06:04 RBC 3.23 M/mcL (4.19-5.50) L 09/07/16 06:04 Hgb 9.0 g/dL (12.9-16.9) L 09/07/16 06:04 Hct 28.2 % (37.5-50.1) L 09/07/16 06:04 MCH 27.9 pg (28.0-33.3) L 09/07/16 06:04 Neutrophils # 10.3 K/mcL (1.6-8.9) H 09/07/16 06:04 Lymphocytes # 0.3 K/mcL (0.6-4.6) L 09/07/16 06:04 D-Dimer 583 ng/mLFEU (0-500) H 09/05/16 02:00 VBG pH 7.43 pH Units (7.32-7.42) H 09/05/16 02:35 VBG pO2 94 mmHg (25-40) H 09/05/16 02:35 VBG HCO3 33.2 mEq/L (21-27) H 09/05/16 02:35 Sodium 132 mEq/L (136-145) L 09/07/16 06:04 Chloride 93 mEq/L (98-109) L 09/07/16 06:04 BUN 31 mg/dL (8-26) H D 09/07/16 06:04 BUN/Creatinine Ratio 33 (6-26) H 09/07/16 06:04 Glucose 181 mg/dL (70-99) H 09/07/16 06:04 POC Glucose 168 (58-89) H 09/06/16 20:04 Iron 12 mcg/dL (65-175) L 09/06/16 08:26 % Saturation 4 % (20-55) L 09/06/16 08:26 Troponin I 0.15 ng/mL (0-0.03) H* 09/05/16 17:27 B-Natriuretic Peptide 1095 pg/mL (0-100) H 09/05/16 02:00 General appearance: Present: no acute distress (Unless he moves around and then he is visibly short of breath.) - Head Head exam: Present: atraumatic, normal inspection - Eye Eye exam: Present: PERRL - ENT ENT exam: Present: mucous membranes moist - Respiratory Respiratory exam: Present: decreased breath sounds - Cardiovascular Cardiovascular exam: Present: RRR - GI/Abdominal GI/Abdominal exam: Present: normal bowel sounds, soft. Absent: tenderness - Extremities Exam Extremities exam: Present: normal inspection. Absent: pedal edema, tenderness - Neurological Exam Neurological exam: Present: alert, oriented X3 - Psychiatric Psychiatric exam: Absent: agitated, anxious - Skin Skin exam: Present: dry, warm Palliative Quality Palliative Quality: Screen for Code Status: Yes, Screen for Goals of Care: Yes, Screen for Pain: Yes, If Pain Regimen Started, Initiate Bowel Regimen: Yes, Screen for Nausea/Vomitting: Yes - Labs CBC & Chem 7: 09/07/16 06:04 09/07/16 06:04 Labs: Laboratory Results - last 24 hr 09/06/16 09/06/16 09/06/16 08:26 08:26 08:26 WBC RBC Hgb 8.5 L Hct 27.1 L MCV MCH MCHC RDW Plt Count MPV Immature Gran % Seg Neutrophils % Lymphocytes % Monocytes % Eosinophils % Basophils % Neutrophils # Lymphocytes # Monocytes # Eosinophils # Basophils # Sodium Potassium Chloride Carbon Dioxide BUN Creatinine Est GFR ( Amer) Est GFR (Non-Af Amer) BUN/Creatinine Ratio Glucose POC Glucose Calculated Osmolality Calcium Iron 12 L % Saturation 4 L Transferrin 232 Ferritin 33 Vitamin B12 257 Folate 7.6 TSH 1.078 Stool Occult Blood 09/06/16 09/06/16 09/06/16 11:00 16:24 16:36 WBC RBC Hgb Hct MCV MCH MCHC RDW Plt Count MPV Immature Gran % Seg Neutrophils % Lymphocytes % Monocytes % Eosinophils % Basophils % Neutrophils # Lymphocytes # Monocytes # Eosinophils # Basophils # Sodium Potassium Chloride Carbon Dioxide BUN Creatinine Est GFR ( Amer) Est GFR (Non-Af Amer) BUN/Creatinine Ratio Glucose POC Glucose 192 H 336 H Calculated Osmolality Calcium Iron % Saturation Transferrin Ferritin Vitamin B12 Folate TSH Stool Occult Blood Negative 09/06/16 09/07/16 09/07/16 20:04 06:04 06:04 WBC 11.2 H RBC 3.23 L Hgb 9.0 L Hct 28.2 L MCV 87.3 MCH 27.9 L MCHC 31.9 RDW 13.5 Plt Count 263 MPV 9.8 Immature Gran % 1.2 Seg Neutrophils % 91.7 Lymphocytes % 3.0 Monocytes % 4.0 Eosinophils % 0.0 Basophils % 0.1 Neutrophils # 10.3 H Lymphocytes # 0.3 L Monocytes # 0.5 Eosinophils # 0.0 Basophils # 0.0 Sodium 132 L Potassium 4.5 Chloride 93 L Carbon Dioxide 29 BUN 31 H D Creatinine 0.93 Est GFR ( Amer) > 60 Est GFR (Non-Af Amer) > 60 BUN/Creatinine Ratio 33 H Glucose 181 H POC Glucose 168 H Calculated Osmolality 285 Calcium 9.3 Iron % Saturation Transferrin Ferritin Vitamin B12 Folate TSH Stool Occult Blood - ABG Interpretation ABG results: PT/INR, D-dimer D-Dimer 583 ng/mLFEU (0-500) H 09/05/16 02:00 Consult Discharge Plan - Plan Referrals: Saul Grayson MD [Primary Care Provider] - 09/12/16 3:00 pm
--- NOTE | 2016-09-07 10:09 | Internal Med Progress Note ---
Date of Encounter: 09/07/16 Time of Encounter: 09:15 - Assessment and plan (1) Acute and chronic respiratory failure Current Visit: Yes Status: Chronic Assessment and plan: At home, patient is on 3 L per nasal cannula continuously. During his visit last month, they attempted to qualify him for BiPAP but he did not qualify. Qualifiers: Respiratory failure complication: hypoxia Qualified Code(s): J96.21 - Acute and chronic respiratory failure with hypoxia (2) CHF (congestive heart failure) Current Visit: Yes Status: Chronic Assessment and plan: EF on echo July 2016 25%. Chest x-ray shows no evidence of effusion or pulmonary edema. Patient euvolemic on exam. BNP is elevated at 1095, however improved from 1700 during last hospital stay. patient is on lasix 20mg po bid and lisinopril 2.5mg daily These were held due to low blood pressures No BB due to severe respiratory distress Cardiology has recommended O-P follow up for medication optimization and possible AICD placement Qualifiers: Congestive heart failure type: systolic Congestive heart failure chronicity : chronic Qualified Code(s): I50.22 - Chronic systolic (congestive) heart failure (3) COPD exacerbation Current Visit: Yes Status: Acute Assessment and plan: Patient with end-stage COPD. On examination, patient with moderate respiratory distress and poor aeration Continue 3 L per nasal cannula continuously. Chest x-ray negative. On Ceftriaxone for bronchitis, Continue ceftriaxone. Palliative input appreciated, patient declines hospice Patient is high risk for readmissions Change solumedrol to prednisone po Continue duonebs (4) CAD (coronary artery disease) Current Visit: Yes Status: Chronic Assessment and plan: Chronic, stable, management as in CHF Qualifiers: Coronary Disease-Associated Artery/Lesion type: [place] artery [place] vs. transplanted heart: [place] heart Associated angina: without angina Qualified Code(s): I25.10 - Atherosclerotic heart disease of [place] coronary artery without angina pectoris (5) PVD (peripheral vascular disease) Current Visit: Yes Status: Chronic Assessment and plan: Chronic stable (6) DM2 (diabetes mellitus, type 2) Current Visit: Yes Status: Chronic Assessment and plan: Controlled at home with a recent A1c of 5.7%. Continue sliding scale while admitted. 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 use: without longterm use Qualified Code(s): E11.9 - Type 2 diabetes mellitus without complications (7) BPH (benign prostatic hyperplasia) Current Visit: Yes Status: Chronic Qualifiers: Prostatic enlargement morphology: unspecified morphology Lower urinary tract symptom presence: symptoms absent Qualified Code(s): N40.0 - Benign prostatic hyperplasia without lower urinary tract symptoms (8) Essential hypertension Current Visit: Yes Status: Chronic Assessment and plan: hypotensive, possibly from poor oral intake and continuous use of morphine Hold medications and observe (9) Cardiomyopathy Current Visit: Yes Status: Chronic Assessment and plan: As in CHF Qualifiers: Cardiomyopathy type: ischemic Qualified Code(s): I25.5 - Ischemic cardiomyopathy (10) Elevated troponin Current Visit: Yes Status: Acute Assessment and plan: Improving from prior, no intervention per cardio Recent NSTEMI with [facility] (11) Aortic stenosis Current Visit: Yes Status: Chronic Assessment and plan: Chronic, moderate, follow up with cardiology as out-patient Qualifiers: Cardiac valve disease etiology: etiology unspecified Qualified Code(s): I35.0 - Nonrheumatic aortic (valve) stenosis - Subjective Interval history: Seen and evaluated at bedside 66 M with end stage COPD , chronic respiratory failure on home oxygen, CAD s/p [place] in 07/2016, [facility] with [facility] 08/09/16, with ishchemic CMP, CHFrEF with EF 20-25%, BPH, moderate aortic stenosis, Chronic anemia Patient is admitted and being managed for acute on chronic respiratory failure secondary to COPDE, demand ishemia with elevated troponins from hypoxia Patient is seen in mid respiratory distress, states this is his baseline He denies new complains Palliative is following patient due to multiple co-mobidities and extremely limited capacity due to dyspnea Chart review reveals BP meds held due to hypotension Patient also has a new leukocytosis possibly from steroids use He has been on Ceftriaxone for bronchitis-Day 3 - Constitutional Vitals: Temp Pulse Resp BP Pulse Ox 97.8 F 99 17 104/71 99 09/07/16 06:57 09/07/16 06:57 09/07/16 06:57 09/07/16 06:57 09/07/16 06:57 General appearance: Present: cachectic, mild distress, A&O X 3, pleasant, severe distress (moderate), answers questions appropriately - Head Head exam: Present: atraumatic, normocephalic - Eye Eye exam: Present: PERRL, conjuntiva pink, sclera anicteric Pupils: Present: PERRL - Neck Neck exam general surgery: Present: supple, trachea midline. Absent: lymphadenopathy - Respiratory Additional comments: Diminished air entry bilaterally possibly from emphysema, no audible wheezing or crackles - Cardiovascular Cardiovascular exam: Present: RRR, +S1, +S2, systolic murmur - GI/Abdominal GI/Abdominal exam: Present: normal bowel sounds, soft, no peritoneal signs. Absent: distended, tenderness - Extremities Exam Extremities exam: Present: warm, radial pulses palpable and symetrical. Absent : calf tenderness, cyanotic, pedal edema - Neurological Exam Neurological exam: Present: alert, CN II-XII intact, oriented X3, no focal deficits. Absent: pronater drift, facial droop, speech deficit - Skin Skin exam: Present: dry, intact Internal Medicine: Result - Labs CBC & Chem 7: 09/07/16 06:04 09/07/16 06:04 Labs: Short CBC 09/07/16 Range/Units 06:04 WBC 11.2 H (4.3-11.1) K/mcL Hgb 9.0 L (12.9-16.9) g/dL Hct 28.2 L (37.5-50.1) % Plt Count 263 (140-400) K/mcL Neutrophils # 10.3 H (1.6-8.9) K/mcL BMP 09/07/16 06:04 Sodium 132 L Potassium 4.5 Chloride 93 L Carbon Dioxide 29 BUN 31 H D Creatinine 0.93 Glucose 181 H Calcium 9.3 - ABG Interpretation ABG results: PT/INR, D-dimer D-Dimer 583 ng/mLFEU (0-500) H 09/05/16 02:00 Consult Discharge Plan - Plan Referrals: Saul Grayson MD [Primary Care Provider] - 09/12/16 3:00 pm
[2016-09-08] MEDS: Ipratropium/Albuterol Neb 3 ML IH SCH ×4 (03:54→22:38)
[2016-09-08 05:31] LABS: Eosinophils # 0.1 K/mcL (0.0-0.6); Eosinophils % 0.8 %; Hematocrit 26.5 % (37.5-50.1); Hemoglobin 8.4 g/dL (12.9-16.9); Immature Granulocytes % 0.3 % (0-4); Lymphocytes # 0.8 K/mcL (0.6-4.6); Lymphocytes % 11.4 %; Mean Corpuscular HGB Conc 31.7 g/dL (31.6-35.5); Mean Corpuscular Hemoglobin 27.6 pg (28.0-33.3); Mean Corpuscular Volume 87.2 fL (83.0-100.0); Mean Platelet Volume 9.7 fL (9.4-12.4); Monocytes # 0.7 K/mcL (0.0-1.3); Monocytes % 10.3 %; Neutrophils # 5.6 K/mcL (1.6-8.9); Platelet Count 246 K/mcL (140-400); Red Blood Count 3.04 M/mcL (4.19-5.50); Red Cell Distribution Width 13.6 % (11.5-14.5); Segmented Neutrophils % 77.2 %
[2016-09-08] MEDS: Morphine Oral CONC 5 MG/0.25 ML ORAL.SYG PO PRN ×4 (06:07→17:45)
[2016-09-08] MEDS: *HR* Heparin 5,000 UNIT/ML VIAL SQ SCH ×3 (06:09→20:52)
[2016-09-08] MEDS: Aspirin 81 MG TAB.CHEW PO SCH (08:23)
[2016-09-08] MEDS: predniSONE 20 MG TABLET PO SCH (08:23)
[2016-09-08] MEDS: Sennosides/Docusate Sodium TABLET PO SCH ×2 (08:23→20:51)
[2016-09-08] MEDS: Insulin LISPRO 300 UNITS/3 ML VIAL SQ SCH ×4 (08:23→20:50)
[2016-09-08] MEDS: Furosemide 20 MG TABLET PO SCH (08:26)
[2016-09-08] MEDS ORDERED: *HR* Morphine 2 MG/ML SYRINGE ONE (09:40)
[2016-09-08] MEDS ORDERED: *HR* Morphine 2 MG/ML SYRINGE IVP ONE (09:41)
[2016-09-08] MEDS ORDERED: *HR* Morphine 2 MG/ML SYRINGE IVP PRN (10:08)
--- NOTE | 2016-09-08 12:44 | Internal Med Progress Note ---
Date of Encounter: 09/08/16 Time of Encounter: 10:00 - Assessment and plan (1) Acute and chronic respiratory failure Current Visit: Yes Status: Chronic Assessment and plan: At home, patient is on 3 L per nasal cannula continuously. During his visit last month, they attempted to qualify him for BiPAP but he did not qualify. Patient reports feeling better whenever he uses BiPAP Patient has agreed to hospice and may be able to obtain BiPAP as a hospice patient Qualifiers: Respiratory failure complication: hypoxia Qualified Code(s): J96.21 - Acute and chronic respiratory failure with hypoxia (2) CHF (congestive heart failure) Current Visit: Yes Status: Chronic Assessment and plan: EF on echo July 2016 25%. Chest x-ray shows no evidence of effusion or pulmonary edema. Patient euvolemic on exam. BNP is elevated at 1095, however improved from 1700 during last hospital stay. patient is on lasix 20mg po bid and lisinopril 2.5mg daily These were held due to low blood pressures Will resume lasix only, at 10mg daily No BB due to severe respiratory distress Cardiology has recommended O-P follow up for medication optimization and possible AICD placement Qualifiers: Congestive heart failure type: systolic Congestive heart failure chronicity : chronic Qualified Code(s): I50.22 - Chronic systolic (congestive) heart failure (3) COPD exacerbation Current Visit: Yes Status: Acute Assessment and plan: Patient with end-stage COPD. On examination, patient with moderate respiratory distress and poor aeration Continue 3 L per nasal cannula continuously. Chest x-ray negative. On Ceftriaxone for bronchitis, Continue ceftriaxone. Palliative input appreciated, patient now accepts Continue duonebs, prednisone, ceftriaxone-Day 4, discontinue after tomorrow's dose (4) CAD (coronary artery disease) Current Visit: Yes Status: Chronic Assessment and plan: Chronic, stable, management as in CHF Qualifiers: Coronary Disease-Associated Artery/Lesion type: [place] artery [place] vs. transplanted heart: [place] heart Associated angina: without angina Qualified Code(s): I25.10 - Atherosclerotic heart disease of [place] coronary artery without angina pectoris (5) PVD (peripheral vascular disease) Current Visit: Yes Status: Chronic Assessment and plan: Chronic stable (6) DM2 (diabetes mellitus, type 2) Current Visit: Yes Status: Chronic Assessment and plan: Controlled at home with a recent A1c of 5.7%. Continue sliding scale while admitted. Qualifiers: Diabetes mellitus complication status: without complication Diabetes mellitus intermediate insulin use: without watermaster use Qualified Code(s): E11.9 - Type 2 diabetes mellitus without complications (7) BPH (benign prostatic hyperplasia) Current Visit: Yes Status: Chronic Qualifiers: Prostatic enlargement morphology: unspecified morphology Lower urinary tract symptom presence: symptoms absent Qualified Code(s): N40.0 - Benign prostatic hyperplasia without lower urinary tract symptoms (8) Essential hypertension Current Visit: Yes Status: Chronic Assessment and plan: hypotensive, possibly from poor oral intake and continuous use of morphine Hold medications and observe (9) Cardiomyopathy Current Visit: Yes Status: Chronic Assessment and plan: As in CHF Qualifiers: Cardiomyopathy type: ischemic Qualified Code(s): I25.5 - Ischemic cardiomyopathy (10) Elevated troponin Current Visit: Yes Status: Acute Assessment and plan: Improving from prior, no intervention per cardio Recent NSTEMI with [facility] (11) Aortic stenosis Current Visit: Yes Status: Chronic Assessment and plan: Chronic, moderate, follow up with cardiology as out-patient Qualifiers: Cardiac valve disease etiology: etiology unspecified Qualified Code(s): I35.0 - Nonrheumatic aortic (valve) stenosis - Subjective Interval history: Seen and evaluated at bedside 66 M with end stage COPD , chronic respiratory failure on home oxygen, CAD s/p [place] in 07/2016, [facility] with [facility] 08/09/16, with ishchemic CMP, CHFrEF with EF 20-25%, BPH, moderate aortic stenosis, Chronic anemia Patient is admitted and being managed for acute on chronic respiratory failure secondary to COPDE, demand [place] with elevated troponins from hypoxia Patient is seen in mid respiratory distress, states this is his baseline He denies new complains Palliative is following patient due to multiple co-mobidities and extremely limited capacity due to dyspnea Attention drawn to patient by RN , patient went to the bathroom and became extremely short of breath He was ordered and given IV morphine, duonebs and placed on BiPAP At time of review, palliative care was on board, as well for evaluation Patient is very anxious about his health, Ativan has been started Patient is now agreeing for hospice, his lasix will be restarted at low dose He is very poor prognosis, and is DNR/DNI, patient with poor reserve , recommend home hospice - Constitutional Vitals: Temp Pulse Resp BP Pulse Ox 97.4 F L 112 17 111/72 99 09/08/16 10:32 09/08/16 10:32 09/08/16 10:32 09/08/16 10:32 09/08/16 10:32 General appearance: Present: cachectic, mild distress, A&O X 3, pleasant, severe distress (moderate), answers questions appropriately - Head Head exam: Present: atraumatic, normocephalic - Eye Eye exam: Present: PERRL, conjuntiva pink, sclera anicteric Pupils: Present: PERRL - Neck Neck exam general surgery: Present: supple, trachea midline. Absent: lymphadenopathy - Respiratory Respiratory exam: Present: CTAB (Clear to auscultation bilaterally, distant breath sounds due to emphysema, no wheezing, no rales). Absent: accessory muscle use, rales, rhonchi, wheezes - Cardiovascular Cardiovascular exam: Present: RRR, +S1, +S2, systolic murmur. Absent: diastolic murmur, gallop, rubs - GI/Abdominal GI/Abdominal exam: Present: normal bowel sounds, soft, no peritoneal signs. Absent: distended, tenderness - Extremities Exam Extremities exam: Present: warm, radial pulses palpable and symetrical. Absent : calf tenderness, cyanotic, pedal edema - Neurological Exam Neurological exam: Present: alert, CN II-XII intact, oriented X3, no focal deficits. Absent: pronater drift, facial droop, speech deficit - Skin Skin exam: Present: dry, intact Internal Medicine: Result - Labs CBC & Chem 7: 09/08/16 05:03 09/07/16 06:04 Labs: Short CBC 09/08/16 Range/Units 05:03 WBC 7.2 (4.3-11.1) K/mcL Hgb 8.4 L (12.9-16.9) g/dL Hct 26.5 L (37.5-50.1) % Plt Count 246 (140-400) K/mcL Neutrophils # 5.6 (1.6-8.9) K/mcL - ABG Interpretation ABG results: PT/INR, D-dimer D-Dimer 583 ng/mLFEU (0-500) H 09/05/16 02:00 Consult Discharge Plan - Plan Referrals: Saul Grayson MD [Primary Care Provider] - 09/12/16 3:00 pm
--- NOTE | 2016-09-08 13:12 | Palliative Progress Note ---
Date of Encounter: 09/08/16 Time of Encounter: 10:40 - Assessment and plan (1) Dyspnea Current Visit: Yes Status: Chronic Assessment and plan: Upon arrival to the room, Mr. Rahman was in severe respiratory distress. He is sitting up on the side of the bed rocking back and forth. Breathing treatment had just been started. Morphine administered. BiPAP ordered. Qualifiers: Dyspnea type: dyspnea on exertion Qualified Code(s): R06.09 - Other forms of dyspnea (2) Chest pain Current Visit: Yes Status: Acute Qualifiers: Chest pain type: chest pain on breathing Qualified Code(s): R07.1 - Chest pain on breathing (3) Goals of care, counseling/discussion Current Visit: Yes Status: Acute Assessment and plan: Family meeting with patient, spouse-Will, daughters Nori and Arminda, son-in-law Ramon, and grandchildren. Reviewed advanced lung disease and treatment options. Mr. Rahman remains adamant that he is a "no code". Discussed hospice options. Reviewed hospice philosophy, services, plan of care. Patient and family very agreeable to hospice at this time. Patient states "I just do not want to suffer anymore ". Referral made to [facility] per patient/family request. (4) Anxiety about health Current Visit: Yes Status: Acute Assessment and plan: Anxiety as a result of dyspnea. May use Ativan 0.5mg every 6 hours as needed. - Time Spent With Patient Total time spent is greater than 50% in coordination of care (as documented) at patient's floor/unit and/or counseling patient: - Subjective Interval history: Mr. Rahman is sitting up on the side of the bed, in severe respiratory distress, rocking back and forth on bedside. Breathing treatment was started and nursing is administering morphine. - Constitutional Vitals: Abnormal lab results RBC 3.04 M/mcL (4.19-5.50) L 09/08/16 05:03 Hgb 8.4 g/dL (12.9-16.9) L 09/08/16 05:03 Hct 26.5 % (37.5-50.1) L 09/08/16 05:03 MCH 27.6 pg (28.0-33.3) L 09/08/16 05:03 D-Dimer 583 ng/mLFEU (0-500) H 09/05/16 02:00 VBG pH 7.43 pH Units (7.32-7.42) H 09/05/16 02:35 VBG pO2 94 mmHg (25-40) H 09/05/16 02:35 VBG HCO3 33.2 mEq/L (21-27) H 09/05/16 02:35 Sodium 132 mEq/L (136-145) L 09/07/16 06:04 Chloride 93 mEq/L (98-109) L 09/07/16 06:04 BUN 31 mg/dL (8-26) H D 09/07/16 06:04 BUN/Creatinine Ratio 33 (6-26) H 09/07/16 06:04 Glucose 181 mg/dL (70-99) H 09/07/16 06:04 POC Glucose 180 (58-89) H 09/07/16 19:55 Iron 12 mcg/dL (65-175) L 09/06/16 08:26 % Saturation 4 % (20-55) L 09/06/16 08:26 Troponin I 0.15 ng/mL (0-0.03) H* 09/05/16 17:27 B-Natriuretic Peptide 1095 pg/mL (0-100) H 09/05/16 02:00 General appearance: Present: severe distress Exam: 66 year old male patient in severe respiratory distress. - Eye Eye exam: Present: EOMI - ENT ENT exam: Present: mucous membranes dry - Respiratory Respiratory exam: Present: accessory muscle use, decreased breath sounds ( minimal air exchange), respiratory distress - Cardiovascular Cardiovascular exam: Present: RRR - GI/Abdominal GI/Abdominal exam: Present: normal bowel sounds, soft. Absent: tenderness - Extremities Exam Extremities exam: Absent: pedal edema - Neurological Exam Neurological exam: Present: alert, oriented X3, no focal deficits, strengths equal and symetr throughout - Psychiatric Psychiatric exam: Present: agitated, anxious - Skin Skin exam: Present: dry, warm Palliative Quality Palliative Quality: Screen for Code Status: Yes, Screen for Goals of Care: Yes, Screen for Pain: Yes, If Pain Regimen Started, Initiate Bowel Regimen: Yes, Screen for Nausea/Vomitting: Yes - Labs CBC & Chem 7: 09/08/16 05:03 09/07/16 06:04 Labs: Laboratory Results - last 24 hr 09/07/16 09/07/1617 06:57 10:47 16:50 WBC RBC Hgb Hct MCV MCH MCHC RDW Plt Count MPV Immature Gran % Seg Neutrophils % Lymphocytes % Monocytes % Eosinophils % Basophils % Neutrophils # Lymphocytes # Monocytes # Eosinophils # Basophils # POC Glucose 189 H 178 H 136 H 09/07/16 09/08/16 19:55 05:03 WBC 7.2 RBC 3.04 L Hgb 8.4 L Hct 26.5 L MCV 87.2 MCH 27.6 L MCHC 31.7 RDW 13.6 Plt Count 246 MPV 9.7 Immature Gran % 0.3 Seg Neutrophils % 77.2 Lymphocytes % 11.4 Monocytes % 10.3 Eosinophils % 0.8 Basophils % 0.0 Neutrophils # 5.6 Lymphocytes # 0.8 Monocytes # 0.7 Eosinophils # 0.1 Basophils # 0.0 POC Glucose 180 H - ABG Interpretation ABG results: PT/INR, D-dimer D-Dimer 583 ng/mLFEU (0-500) H 09/05/16 02:00 Consult Discharge Plan - Plan Referrals: Saul Grayson MD [Primary Care Provider] - 09/12/16 3:00 pm
[2016-09-08] MEDS: *HR* LORazepam 0.5 MG TABLET PO PRN (17:49)
[2016-09-09] MEDS: Morphine Oral CONC 5 MG/0.25 ML ORAL.SYG PO PRN (01:39)
[2016-09-09] MEDS ORDERED: Morphine Oral CONC 5 MG/0.25 ML ORAL.SYG PO PRN (01:50)
[2016-09-09] MEDS: *HR* LORazepam 0.5 MG TABLET PO PRN ×2 (03:34→10:48)
[2016-09-09] MEDS: Ipratropium/Albuterol Neb 3 ML IH SCH ×2 (03:49→08:45)
[2016-09-09] MEDS: *HR* Heparin 5,000 UNIT/ML VIAL SQ SCH (06:17)
[2016-09-09 07:05] VITALS: BP 103/70
[2016-09-09] MEDS: Sennosides/Docusate Sodium TABLET PO SCH (07:39)
[2016-09-09] MEDS: predniSONE 20 MG TABLET PO SCH (07:40)
[2016-09-09] MEDS: Aspirin 81 MG TAB.CHEW PO SCH (07:40)
[2016-09-09] MEDS: Furosemide 20 MG TABLET PO SCH (07:40)
--- NOTE | 2016-09-09 09:17 | Discharge Summary ---
Date of Encounter: 09/09/16 Time of Encounter: 09:00 - Discharge Diagnosis (1) Acute and chronic respiratory failure Priority: Primary Status: Chronic Comments: Secondary to COPDE At home, patient is on 3 L per nasal cannula continuously. During his visit last month, they attempted to qualify him for BiPAP but he did not qualify. Patient reports feeling better whenever he uses BiPAP Continue duonebs, prednisone, BiPAP, morphine, ativan, management per palliative has received 5 days of ceftriaxone, may be discontinued Qualifiers: Respiratory failure complication: hypoxia Qualified Code(s): J96.21 - Acute and chronic respiratory failure with hypoxia (2) CHF (congestive heart failure) Priority: Secondary Status: Chronic Comments: EF on echo July 2016 25%. Chest x-ray shows no evidence of effusion or pulmonary edema. Patient euvolemic on exam. BNP is elevated at 1095, however improved from 1700 during last hospital stay. patient was on lasix 20mg po bid and lisinopril 2.5mg daily These were held due to low blood pressures His BP tolerated lasix 10mg po daily No BB due to severe respiratory distress Cardiology has recommended O-P follow up for medication optimization and possible AICD placement Qualifiers: Congestive heart failure type: systolic Congestive heart failure chronicity : chronic Qualified Code(s): I50.22 - Chronic systolic (congestive) heart failure (3) COPD exacerbation Priority: Primary Status: Acute (4) CAD (coronary artery disease) Priority: Secondary Status: Chronic Qualifiers: Coronary Disease-Associated Artery/Lesion type: [place] artery [place] vs. transplanted heart: [place] heart Associated angina: without angina Qualified Code(s): I25.10 - Atherosclerotic heart disease of [place] coronary artery without angina pectoris (5) PVD (peripheral vascular disease) Priority: Secondary Status: Chronic (6) DM2 (diabetes mellitus, type 2) Priority: Secondary Status: Chronic Qualifiers: Diabetes mellitus complication status: without complication Diabetes mellitus group home insulin use: without group home use Qualified Code(s): E11.9 - Type 2 diabetes mellitus without complications (7) BPH (benign prostatic hyperplasia) Priority: Secondary Status: Chronic Qualifiers: Prostatic enlargement morphology: unspecified morphology Lower urinary tract symptom presence: symptoms absent Qualified Code(s): N40.0 - Benign prostatic hyperplasia without lower urinary tract symptoms (8) Essential hypertension Priority: Secondary Status: Chronic (9) Cardiomyopathy Priority: Secondary Status: Chronic Qualifiers: Cardiomyopathy type: ischemic Qualified Code(s): I25.5 - Ischemic cardiomyopathy (10) Elevated troponin Priority: Primary Status: Acute (11) Aortic stenosis Priority: Secondary Status: Chronic Qualifiers: Cardiac valve disease etiology: etiology unspecified Qualified Code(s): I35.0 - Nonrheumatic aortic (valve) stenosis - Discharge Medications Home Medications: Albuterol Sulfate [Albuterol Inhaler] 2 puff IH Q4HR PRN 11/13/14 [History] Aspirin 81 mg PO DAILY 11/14/14 [History] Cholecalciferol (Vitamin D3) [Vitamin D3] 1,000 unit PO DAILY 11/14/14 [History] Clopidogrel [Plavix] 75 mg PO DAILY 11/14/14 [History] Ferrous Gluconate 324 mg PO DAILY 12/13/15 [History] Ipratropium [place] 1 spray NS DAILY 12/13/15 [History] Metformin HCl [Metformin HCl ER] 1,000 mg PO QPM 12/13/15 [History] Oxygen 3 l IH HS 12/13/15 [History] Ranitidine HCl [Heartburn Relief] 150 mg PO BID PRN 12/13/15 [History] Fluticasone Propionate [Flovent Hfa] 2 puff IH BID 08/08/16 [History] Ipratropium/Albuterol Neb [Duoneb] 3 ml IH Q6H PRN 08/08/16 [History] Atorvastatin [Lipitor] 40 mg PO HS #30 tablet 08/10/16 [Rx] Tamsulosin [Flomax] 0.4 mg PO DAILY #30 capsule 08/10/16 [Rx] Furosemide [Lasix] 20 mg PO Q12HR #60 tablet 08/21/16 [Rx] predniSONE [PredniSONE] 10 mg PO TAPER 9 Days 08/21/16 [Rx] Allergies/Adverse Reactions: Allergies No Known Allergies Allergy (Verified 09/05/16 02:00) Date of admission: 09/05/16 05:55 Primary care physician: Saul Grayson MD Consults: 09/05/16 11:38 Consult to [employer] [CONS] Routine Reason for SW Consult: d/c planning 09/05/16 12:13 Consult to Palliative Care [CONS] Routine Comment: Consulting Provider: [facility] [place] Reason for Consult: end stage copd. third admit this month. open to palliative/hospice discussion. please eval and advise. thanks! Time Notified: 12:14 Call Completed: Yes 09/05/16 13:21 Consult to Cardiology [CONS] Routine Comment: Consulting Provider: Kel Landrum Reason for Consult: newer onset sys HF- ef 20%. has not been able to followup outpatient 2/2 multiple admissions. end stage copd as well. He wants to know what his options are. Time Notified: 13:22 Call Completed: Yes Discharging clinician: Tyler Lopez Anticipated date of discharge: 09/09/16 - Patient Status Disposition: Hospice - Medical Facility Condition: Fair Functional capacity at discharge: independent ambulation Overall status at discharge: patient is not back to baseline - Discharge Instructions Instructions: Chronic Obstructive Pulmonary Disease (DC) Follow Up With: Saul Grayson MD [Primary Care Provider] - 09/12/16 3:00 pm - Diet and Activity Activity: resume usual activities as tolerated, wear oxygen at all times Diet: diabetic diet, low fat, low cholesterol, low salt diet Interval History: See below Hospital course: Mr. Rahman is a 66 M with end stage COPD , chronic respiratory failure on home oxygen, CAD s/p SD in 07/2016, [facility] with TANYA 08/09/16, with ishchemic CMP, CHFrEF with EF 20-25%, BPH, moderate aortic stenosis, Chronic anemia Patient was admitted and being managed for acute on chronic respiratory failure secondary to COPDE, demand [place] with elevated troponins from hypoxia he has made minimal improvement in his respiratory status clinically as he continues to be dyspneic with minimal exertion His cardiac status may also be an attributing factor This morning, he is seen and evaluated at bedside, in no form of distress Palliative care has been actively involved in his care Patient is discharged to palliative care services Rest of details as in each diagnosis - Time Spent with Patient Total time spent providing and/or coordinating discharge services: Less than 30 minutes - Constitutional Vitals: Temp Pulse Resp BP Pulse Ox 98.3 F 111 17 103/70 100 09/09/16 06:59 09/09/16 06:59 09/09/16 06:59 09/09/16 06:59 09/09/16 06:59 General appearance: Present: cachectic, mild distress, A&O X 3, pleasant, severe distress (moderate), answers questions appropriately - Head Head exam: Present: atraumatic, normocephalic - Eye Eye exam: Present: PERRL, conjuntiva pink, sclera anicteric Pupils: Present: PERRL - Neck Neck exam general surgery: Present: supple, trachea midline. Absent: lymphadenopathy - Respiratory Respiratory exam: Present: CTAB. Absent: accessory muscle use, rales, rhonchi, wheezes - Cardiovascular Cardiovascular exam: Present: RRR, +S1, +S2. Absent: diastolic murmur, gallop, rubs, systolic murmur - GI/Abdominal GI/Abdominal exam: Present: normal bowel sounds, soft, no peritoneal signs. Absent: distended, tenderness - Extremities Exam Extremities exam: Present: warm, radial pulses palpable and symetrical. Absent : calf tenderness, cyanotic, pedal edema - Neurological Exam Neurological exam: Present: alert, CN II-XII intact, oriented X3, no focal deficits. Absent: pronater drift, facial droop, speech deficit - Skin Skin exam: Present: dry, intact
[2016-09-09] MEDS ORDERED: *HR* Morphine Sulfate SR (12 HR) 15 MG TABLET.ER PO ONE (10:50)
[2016-09-09] MEDS: Insulin LISPRO 300 UNITS/3 ML VIAL SQ SCH (10:59)
== END 2016-09-09 12:01 | disposition hospice, inpatient (51) | DRG 190 ==
LOC: EMEROO 01:46 → 3BNU 01:46 → SUATTDRO 05:55
PROVIDERS: ADMIT Registered Nurse; ATTEND Nurse Practitioner Family

== ENCOUNTER 2016-09-09 12:52 | Inpatient (IN) ==
--- NOTE | 2016-09-09 12:24 | Palliative - Consult Note ---
Date of Encounter: 09/09/16 Time of Encounter: 10:40 - Assessment and Plan (1) Anxiety about health Status: Acute Assessment and plan: Continue Ativan 0.5 every 4 hours PRN. Monitor (2) Dyspnea Status: Acute Assessment and plan: Continue Duonebs/Prednisone/supportive oxygen/bipap PRN and opioids for breathlessness. MS Hirsch 15 bid was began this am. He has Roxanol for breakthrough dyspnea, utilized x1 this am. Monitor and adjust doses accordingly. Qualifiers: Qualified Code(s): R06.00 - Dyspnea, unspecified (3) COPD exacerbation Status: Acute (4) Goals of care, counseling/discussion Status: Acute Assessment and plan: Patient transitioning to general inpt hospice today. Will work on medication adjustment for dyspnea and anticipate d/c early in the week. Family engaged and agreeable with plan. Patients currently admitted and expected discharge first of week as well. (5) COPD (chronic obstructive pulmonary disease) Status: Chronic Qualifiers: COPD type: unspecified COPD Qualified Code(s): J44.9 - Chronic obstructive pulmonary disease, unspecified (6) Respiratory failure Status: Acute Qualifiers: Chronicity: unspecified Respiratory failure complication: unspecified whether with hypoxia or hypercapnia Qualified Code(s): J96.90 - Respiratory failure, unspecified, unspecified whether with hypoxia or hypercapnia Palliative-CN HPI - Data of Consult Consult date: 09/09/16 Requesting Physician: Ezequiel Serna MD - Consult Narrative Palliative Care/Comfort Measures: Hospice care History of present illness: Mr. Rahman is a 66 year old male with a history of end stage lung disease, acute on chronic resp failure who was admitted to [facility] today and will remain as general inpatient for symptom control. He has pertinent medical history also for CHF, CAD, PVD, DM, CPH, HTN, Cardiomyopathy, and Aortic stenosis. He was being treated in hospital for COPD exacerbation, his symptoms and breathlessness continued to worsen throughout stay. Palliative care was consulted and pt decided to focus primarily on symptom management and wanted to be kept comfortable. He was transitioned to [facility] and desired to enroll in hospice care. The decision was made to enroll and transition to inpt hospice until his breathlessness was improved and medications were adjusted. He was began on SR opioids this am. His is currently in the hospital as well, and expected to be here through Sunday. At my visit, his daughter and son shelia aldridge are at bedside. He is in mild respiratory distress and is on bipap. Uses a fan at bedside. States that the Roxanol he took earlier did help, and he is getting relief from anxiety with Lorazepam. He denies pain at present. CC: Ezequiel Serna MD Past Med Surg Social Fam HX - Past Medical History Medical history: COPD (Oxygen dependent using 3 L continuously), coronary artery disease (Status post stents), diabetes (Not insulin-dependent), hyperlipidemia, hypertension, other (Systolic CHF with ejection fraction of 25% , peripheral artery disease, BPH, mild aortic stenosis) Psychiatric history: no psych history - Past Surgical History Surgical History: angioplasty/stent, sinus surgery, other - Social History Smoking Status: Former smoker Smokeless Tobacco Status: No Alcohol use: occasionally, heavy Drug use: none - Family History Mother Hx Family Endocrine Disorder: Yes (diabeties) Medications and Allergies Albuterol Sulfate [Albuterol Inhaler] 2 puff IH Q4HR PRN 11/13/14 [History] Aspirin 81 mg PO DAILY 11/14/14 [History] Cholecalciferol (Vitamin D3) [Vitamin D3] 1,000 unit PO DAILY 11/14/14 [History] Clopidogrel [Plavix] 75 mg PO DAILY 11/14/14 [History] Ferrous Gluconate 324 mg PO DAILY 12/13/15 [History] Ipratropium [place] 1 spray NS DAILY 12/13/15 [History] Metformin HCl [Metformin HCl ER] 1,000 mg PO QPM 12/13/15 [History] Oxygen 3 l IH HS 12/13/15 [History] Ranitidine HCl [Heartburn Relief] 150 mg PO BID PRN 12/13/15 [History] Fluticasone Propionate [Flovent Hfa] 2 puff IH BID 08/08/16 [History] Ipratropium/Albuterol Neb [Duoneb] 3 ml IH Q6H PRN 08/08/16 [History] Atorvastatin [Lipitor] 40 mg PO HS #30 tablet 08/10/16 [Rx] Tamsulosin [Flomax] 0.4 mg PO DAILY #30 capsule 08/10/16 [Rx] Furosemide [Lasix] 20 mg PO Q12HR #60 tablet 08/21/16 [Rx] predniSONE [PredniSONE] 10 mg PO TAPER 9 Days 08/21/16 [Rx] Allergies No Known Allergies Allergy (Verified 09/05/16 02:00) - Respiratory Respiratory: dyspnea, dyspnea on exertion, wheezing - Genitourinary Genitourinary ROS male: urinary hesitancy Palliative Care-Exam - Constitutional General appearance: Present: mild distress - Head Head Exam: Present: normal inspection, normocephalic - Eye Eye exam: Present: normal appearance, PERRL - Respiratory Respiratory exam: Present: decreased breath sounds, CTAB - Cardiovascular Cardiovascular exam: Present: +S1, +S2 - GI/Abdominal Exam GI/Abdominal exam: Present: normal bowel sounds, soft - Extremities Exam Extremities exam: Present: normal capillary refill, normal inspection - Neurological Exam Neurological exam: Present: alert, oriented X3, strengths equal and symetr throughout - Psychiatric Psychiatric exam: Present: anxious - Skin Skin exam: Present: dry, normal color, warm Palliative Quality Palliative Quality: Screen for Code Status: Yes, Screen for Goals of Care: Yes, Screen for Pain: Yes, If Pain Regimen Started, Initiate Bowel Regimen: Yes, Screen for Nausea/Vomitting: Yes Code Status: 09/09/16 10:31 Resuscitation Status: Active [RES] Routine Comment: Resuscitation Status: DNR-Comfort Care
[~2016-09-09 12:52] MED LIST: *HR* LORazepam 0.5 MG TABLET PO PRN; Acetaminophen 325 MG TABLET PO PRN; Nitroglycerin 0.4 MG TAB.SUBL SL PRN; Ondansetron ODT 4 MG TAB.RAPDIS SL PRN
[2016-09-09] MEDS: Morphine Oral CONC 5 MG/0.25 ML ORAL.SYG PO PRN ×2 (13:20→18:48)
[2016-09-09] MEDS: Ipratropium/Albuterol Neb 3 ML IH SCH ×2 (16:21→22:41)
[2016-09-09] MEDS ORDERED: Famotidine 20 MG TABLET PO SCH (21:00)
[2016-09-09] MEDS ORDERED: *HR* Morphine Sulfate SR (12 HR) 15 MG TABLET.ER PO SCH (21:00)
[2016-09-09] MEDS: Sennosides/Docusate Sodium TABLET PO SCH (21:43)
[2016-09-10] MEDS: Morphine Oral CONC 5 MG/0.25 ML ORAL.SYG PO PRN (02:31)
[2016-09-10] MEDS: Ipratropium/Albuterol Neb 3 ML IH SCH ×4 (04:05→21:55)
[2016-09-10] MEDS: *HR* Morphine Sulfate SR (12 HR) 15 MG TABLET.ER PO SCH ×3 (04:10→21:02)
[2016-09-10] MEDS: Aspirin Enteric Coated 81 MG Tablet PO SCH (07:43)
[2016-09-10] MEDS: Sennosides/Docusate Sodium TABLET PO SCH ×2 (07:43→21:02)
[2016-09-10] MEDS: predniSONE 20 MG TABLET PO SCH (07:43)
[2016-09-10] MEDS: Furosemide 20 MG TABLET PO SCH (07:43)
[2016-09-10] MEDS ORDERED: *HR* LORazepam 1 MG TABLET PO PRN (12:00)
--- NOTE | 2016-09-10 12:00 | Palliative Progress Note ---
Date of Encounter: 09/10/16 Time of Encounter: 12:00 - Assessment and plan (1) Constipation Current Visit: Yes Status: Acute Assessment and plan: Continue Senokot 2 tabs bid, and add Miralax daily. MOnitor (2) Anxiety about health Current Visit: No Status: Acute Assessment and plan: Will increase Lorazepam to 1mg tablets. He states the 0.5 do not seem to be helping much at this point. (3) Dyspnea Current Visit: No Status: Acute Assessment and plan: Continue MS Contin bid, Roxanol PRN. Has utilized x3 last 24 hours. Continues with bronchodilators, steriods, and supportive oxygen/bipap. Qualifiers: Qualified Code(s): R06.00 - Dyspnea, unspecified (4) COPD exacerbation Current Visit: No Status: Acute (5) Goals of care, counseling/discussion Current Visit: No Status: Acute Assessment and plan: He is wanting to go home tomorrow, once is discharged. DME needs e-mailed to [facility]. (6) COPD (chronic obstructive pulmonary disease) Current Visit: No Status: Chronic Qualifiers: COPD type: unspecified COPD Qualified Code(s): J44.9 - Chronic obstructive pulmonary disease, unspecified (7) Respiratory failure Current Visit: Yes Status: Acute Qualifiers: Chronicity: unspecified Respiratory failure complication: unspecified whether with hypoxia or hypercapnia Qualified Code(s): J96.90 - Respiratory failure, unspecified, unspecified whether with hypoxia or hypercapnia - Time Spent With Patient Total time spent is greater than 50% in coordination of care (as documented) at patient's floor/unit and/or counseling patient: 25 - 35 minutes - Subjective Interval history: Patient awake and alert, family at bedside. Awaiting to visit his room. Still with shortness of breath and anxiety, states Roxanol is helpful. States Ativan not helping that much. Utilized bipap about 90 min last night. No BM for 6 days. - Constitutional Vitals: Abnormal lab results POC Glucose 234 (58-89) H 09/09/16 20:57 General appearance: Present: mild distress - Respiratory Respiratory exam: Present: decreased breath sounds, CTAB - Cardiovascular Cardiovascular exam: Present: +S1, +S2 - GI/Abdominal GI/Abdominal exam: Present: distended, normal bowel sounds, soft - Extremities Exam Extremities exam: Present: normal capillary refill, normal inspection - Neurological Exam Neurological exam: Present: alert, oriented X3, strengths equal and symetr throughout - Skin Skin exam: Present: dry, pallor, warm Palliative Quality Palliative Quality: Screen for Code Status: Yes, Screen for Goals of Care: Yes, Screen for Pain: Yes, If Pain Regimen Started, Initiate Bowel Regimen: Yes, Screen for Nausea/Vomitting: Yes Code Status: 09/09/16 10:31 Resuscitation Status: Active [RES] Routine Comment: Resuscitation Status: DNR-Comfort Care - Labs Labs: Laboratory Results - last 24 hr 09/09/16 09/09/16 16:13 20:57 POC Glucose 256 H 234 H Consult Discharge Plan - Plan Referrals: Saul Grayson MD [Primary Care Provider] -
[2016-09-11] MEDS: Ipratropium/Albuterol Neb 3 ML IH SCH ×2 (04:09→10:21)
[2016-09-11] MEDS: Furosemide 20 MG TABLET PO SCH (07:38)
[2016-09-11] MEDS: Aspirin Enteric Coated 81 MG Tablet PO SCH (07:38)
[2016-09-11] MEDS: Sennosides/Docusate Sodium TABLET PO SCH (07:38)
[2016-09-11] MEDS: predniSONE 20 MG TABLET PO SCH (07:39)
[2016-09-11] MEDS: *HR* Morphine Sulfate SR (12 HR) 15 MG TABLET.ER PO SCH (08:59)
--- NOTE | 2016-09-11 10:20 | Discharge Summary ---
Date of Encounter: 09/11/16 Time of Encounter: 09:00 - Discharge Diagnosis (1) COPD exacerbation Priority: Primary Status: Acute (2) Dyspnea Priority: Secondary Status: Chronic Qualifiers: Dyspnea type: dyspnea on exertion Qualified Code(s): R06.09 - Other forms of dyspnea (3) Systolic heart failure Priority: Secondary Status: Chronic Qualifiers: Heart failure chronicity: chronic Qualified Code(s): I50.22 - Chronic systolic (congestive) heart failure (4) Anemia Priority: Secondary Status: Chronic Qualifiers: Anemia type: unspecified type Qualified Code(s): D64.9 - Anemia, unspecified (5) Anxiety about health Priority: Secondary Status: Chronic (6) Constipation Priority: Secondary Status: Chronic Qualifiers: Constipation type: drug induced constipation Qualified Code(s): K59.03 - Drug induced constipation - Discharge Medications Home Medications: Albuterol Sulfate [Albuterol Inhaler] 2 puff IH Q4HR PRN 11/13/14 [History] Aspirin 81 mg PO DAILY 11/14/14 [History] Cholecalciferol (Vitamin D3) [Vitamin D3] 1,000 unit PO DAILY 11/14/14 [History] Clopidogrel [Plavix] 75 mg PO DAILY 11/14/14 [History] Ferrous Gluconate 324 mg PO DAILY 12/13/15 [History] Metformin HCl [Metformin HCl ER] 1,000 mg PO QPM 12/13/15 [History] Oxygen 3 l IH HS 12/13/15 [History] Ranitidine HCl [Heartburn Relief] 150 mg PO BID PRN 12/13/15 [History] Fluticasone Propionate [Flovent Hfa] 2 puff IH BID 08/08/16 [History] Ipratropium/Albuterol Neb [Duoneb] 3 ml IH Q6H PRN 08/08/16 [History] Atorvastatin [Lipitor] 40 mg PO HS #30 tablet 08/10/16 [Rx] Tamsulosin [Flomax] 0.4 mg PO DAILY #30 capsule 08/10/16 [Rx] Furosemide [Lasix] 20 mg PO Q12HR #60 tablet 08/21/16 [Rx] Albuterol Sulfate [Ventolin Hfa] 2 puff IH Q4H PRN 09/10/16 [History] Lisinopril [Zestril] 5 mg PO DAILY 09/10/16 [History] LORazepam [Ativan] 1 mg PO Q4HR PRN #10 tablet 09/11/16 [Rx] Morphine Oral CONC [Roxanol] 0.5 ml PO Q4H PRN #30 ml 09/11/16 [Rx] Morphine Sulfate SR (12 HR) [MS Contin] 1 tab PO Q12HR #10 tab 09/11/16 [Rx] Sennosides/Docusate Sodium [Senna Plus] 2 each PO BID #15 tablet 09/11/16 [Rx] Allergies/Adverse Reactions: Allergies No Known Allergies Allergy (Verified 09/05/16 02:00) Labs on day of discharge: Labs from last 24 hours 09/10/16 09/10/16 09/10/16 20:21 16:38 10:47 POC Glucose 262 H 267 H 176 H 09/10/16 07:39 POC Glucose 136 H Internal Medicine - DS: Prov Date of admission: 09/09/16 12:52 Primary care physician: Saul Grayson MD Admitting clinician: Ezequiel Serna Attending physician on admission: Ezequiel Serna Consults: 09/09/16 10:31 Consult to Palliative Care [CONS] Routine Comment: Consulting Provider: [facility] Reason for Consult: hospice care Time Notified: 10:00 Call Completed: No Discharging clinician: Ines Lozano Anticipated date of discharge: 09/11/16 - Patient Status Disposition: Hospice - Home Condition: Fair Functional capacity at discharge: uses cane/walker Overall status at discharge: patient is progressing back to baseline - Discharge Instructions Follow Up With: Saul Grayson MD [Primary Care Provider] - Additional Instructions: [facility] to continue upon discharge. - Diet and Activity Activity: increase activity as tolerated, wear oxygen at all times, other ( BIPAP at night and PRN throughout the day) Diet: advance to your usual diet - Hospital Course Hospital course: Mr. Rahman is a 66 year old male patient admitted to [facility] under general in- patient hospice services for symptom management of dyspnea. Mr. Rahman has a history of end stage lung disease and heart failure. He was experiencing episodes of severe respiratory distress with minimal physical exertion that induced severe anxiety. During his hospitalization, his medications were titrated to achieve optimum dyspnea control. Mr. Rahman has also used the BiPAP for dyspnea management and was able to tolerate it for 5 hours last night. He will be discharged home to resume the services of hospice care. - Time Spent with Patient Total time spent providing and/or coordinating discharge services: Internal Medicine - DS: Exam - Constitutional Vitals: Vital Signs Temp Pulse Resp BP Pulse Ox 09/11/16 04:11 18 98 09/10/16 21:57 18 96 09/10/16 20:22 97.8 F 93 20 108/68 98 09/10/16 16:12 16 96 09/10/16 10:49 16 97 Intake and Output 09/10/16 09/11/16 09/11/16 23:59 07:59 15:59 Intake Total 0 / 0 120 / 120 Balance 0 / 0 120 / 120 Intake: Oral 0 / 0 120 / 120 Other: Meal Dinner Breakfast Percent of Meal Consumed 95% 100% Blood Glucose* 262 153 General appearance: cooperative, no severe distress Additional comments: 66 year old male patient appearing older than stated age. He does experience some exertional and conversational dyspnea. - Eye Eye exam: Present: EOMI Pupils: Present: PERRL - ENT ENT exam: Present: mucous membranes moist - Respiratory Respiratory exam: Present: decreased breath sounds (poor air exchange) - Cardiovascular Cardiovascular exam: Present: RRR, +S1, +S2 - GI/Abdominal GI/Abdominal exam: Present: normal bowel sounds, soft. Absent: guarding, tenderness - Extremities Exam Extremities exam: Present: normal inspection - Neurological Exam Neurological exam: Present: alert, no focal deficits, strengths equal and symetr throughout - Psychiatric Psychiatric exam: Absent: agitated, anxious - Skin Skin exam: Present: dry, warm
[2016-09-11 10:38] VITALS: BP 95/57
[2016-09-11] MEDS: Morphine Oral CONC 5 MG/0.25 ML ORAL.SYG PO PRN (11:31)
== END 2016-09-11 13:53 | disposition hospice, home (50) | DRG 189 ==
LOC: 2ANU 12:52
PROVIDERS: ADMIT Family Medicine Hospice and Palliative Medicine; ATTEND Family Medicine Hospice and Palliative Medicine